=== PATIENT | female | born 1935 | race Caucasian/White ===

== ENCOUNTER 2019-11-26 11:16 | Outpatient (RCR) | payer MEDICAID, SELFPAY | END 2019-11-26 23:59 | disposition home or self-care (01) | LOC: ANHAUDIO 11:16 | PROVIDERS: PCP Family Medicine; Visit Provider Family Medicine | DX: Z46.1 Encounter for fitting and adjustment of hearing aid (principal) | CPT/HCPCS: 99199 ==

== ENCOUNTER 2020-04-16 11:20 | Outpatient (NON) | payer MEDICARE, OTHER, SELFPAY ==
[2020-04-16 12:05] LABS: Add Urine Microscopic? YES; Appearance Urine Clear (Clear); Bilirubin Urine Negative (Negative); Blood Urine Negative (Negative); Color Urine Yellow (Yellow); Glucose Urine UA Negative (Negative); Ketones Urine Negative (Negative); Leukocyte Esterase Ur 2+ LEU/UL (Negative); Nitrate Urine Negative (Negative); Protein Urine Negative (Negative); Specific Grav Ur 1.025 (1.010-1.020); Urobilinogen Urine 0.2 mg/dL (0.2-1.0); pH Urine 5.5 (5.0-8.0)
[2020-04-16 12:07] LABS: Basophils Absolute Auto 0.09 K/mm3 (0.00-0.10); Eosinophils Absolute Auto 0.16 K/mm3 (0.02-0.50); Eosinophils Percent Auto 1.8 % (1.0-6.0); Hematocrit 42.6 % (35.0-42.0); Hemoglobin 14.1 g/dL (11.7-13.8); Immature Granulocyte Absolute 0.09 K/mm3 (0.00-0.00); Lymphocytes Absolute Auto 2.79 K/mm3 (1.10-4.50); Lymphocytes Percent Auto 32.2 % (18.0-42.0); Mean Corpuscular HGB Conc 33.1 g/dL (32.0-36.0); Mean Corpuscular Hemoglobin 28.7 pg (27.0-31.0); Mean Corpuscular Volume 86.6 fL (78.0-102.0); Mean Platelet Volume 11.3 fl (9.2-11.8); Monocytes Absolute Auto 0.83 K/mm3 (0.10-0.90); Monocytes Percent Auto 9.6 % (2.0-11.0); Neutrophils Absolute Auto 4.7 K/mm3 (1.7-7.2); Neutrophils Percent Auto 54.4 % (50.0-70.0); Platelet Count Result 247 K/mm3 (150-420); Red Blood Count 4.92 M/mm3 (4.20-5.40); Red Cell Distribution Width 13.8 % (11.6-14.4); White Blood Count 8.7 K/mm3 (4.8-10.8)
[2020-04-16 12:16] LABS: Bacteria Urine 4+ /hpf; RBC Urine 0-2 /hpf (0-2); Squamous Epithelial Cell Urine Few /hpf (Few); WBC Urine >75 /hpf (0-3)
[2020-04-16 12:37] LABS: Alanine Aminotransferase 38 U/L (14-59); Albumin Level 3.6 g/dL (3.4-5.0); Alkaline Phosphatase 136 U/L (46-116); Anion Gap 16.6 mmol/L (7-16); Aspartate Amino Transferase 35 U/L (15-37); Bilirubin,Total 0.3 mg/dL (0.00-1.00); Blood Urea Nitrogen 36 mg/dL (7-18); Calcium 8.8 mg/dL (8.5-10.1); Carbon Dioxide 25 mmol/L (21-32); Chloride 98 mmol/L (98-108); Cholesterol 156 mg/dL (0-200); Estimated Glomerular Filt Rate 35; Glucose 353 mg/dL (70-99); HDL Direct 27 mg/dL (40-60); LDL Cholesterol Calculated 65 mg/dL (<130); Osmolality Calculated 302 mOsm/kg (285-295); Potassium 4.6 mmol/L (3.5-5.1); Sodium 135 mmol/L (136-145); Thyroid Stimulating Hormone 1.28 uIU/mL (0.36-3.74); Triglycerides 320 mg/dL (0-150)
[2020-04-16 12:39] LABS: Creatinine Urine 153.66 mg/dL (40-278)
[2020-04-16 12:44] LABS: MALB Creatinine Ratio 12.6 mg/g (0-30); Microalbumin Urine Random 19.4 mg/L
[2020-04-16 12:46] LABS: Hemoglobin A1C 10.3 % (<5.7)
== END 2020-04-17 00:01 | disposition home or self-care (01) ==
PROVIDERS: Visit Provider Internal Medicine
DX: E11.9 Type 2 diabetes mellitus without complications (principal); R82.90 Unspecified abnormal findings in urine
CPT/HCPCS: 36415; 80053; 80061; 81001; 82043; 83036; 84443; 85025; 87077; 87086; 87088; 87186

== ENCOUNTER 2020-08-20 13:34 | Outpatient (NON) | payer MEDICARE, SELFPAY ==
[2020-08-20 14:06] LABS: Hemoglobin A1C 7.6 % (<5.7)
[2020-08-20 14:09] LABS: Alanine Aminotransferase 35 U/L (14-59); Albumin Level 3.6 g/dL (3.4-5.0); Alkaline Phosphatase 111 U/L (46-116); Anion Gap 12 mmol/L (8-16); Aspartate Amino Transferase 27 U/L (15-37); Bilirubin,Total 0.5 mg/dL (0.00-1.00); Blood Urea Nitrogen 27 mg/dL (7-18); Calcium 9.1 mg/dL (8.5-10.1); Carbon Dioxide 24 mmol/L (21-32); Chloride 103 mmol/L (98-108); Estimated Glomerular Filt Rate 50; Glucose 136 mg/dL (70-99); Osmolality Calculated 295 mOsm/kg (285-295); Potassium 5.6 mmol/L (3.5-5.1); Sodium 139 mmol/L (136-145); Total Protein 6.8 g/dL (6.4-8.2)
== END 2020-08-20 13:35 ==
LOC: CHSLAB 13:36
PROVIDERS: Visit Provider Internal Medicine
DX: E11.9 Type 2 diabetes mellitus without complications (principal)
CPT/HCPCS: 36415; 80053; 83036

== ENCOUNTER 2021-01-04 10:40 | Outpatient (NON) | payer MEDICARE, SELFPAY ==
[2021-01-04 11:51] LABS: Basophils Percent Auto 1.1 % (0.0-1.0); Eosinophils Absolute Auto 0.24 K/mm3 (0.02-0.50); Eosinophils Percent Auto 2.6 % (1.0-6.0); Hematocrit 38.9 % (35.0-42.0); Hemoglobin 12.2 g/dL (11.7-13.8); Immature Granulocyte Absolute 0.09 K/mm3 (0.00-0.00); Lymphocytes Absolute Auto 3.53 K/mm3 (1.10-4.50); Lymphocytes Percent Auto 38.5 % (18.0-42.0); Mean Corpuscular HGB Conc 31.4 g/dL (32.0-36.0); Mean Corpuscular Volume 89.2 fL (78.0-102.0); Mean Platelet Volume 10.7 fl (9.2-11.8); Monocytes Absolute Auto 0.84 K/mm3 (0.10-0.90); Monocytes Percent Auto 9.2 % (2.0-11.0); Neutrophils Absolute Auto 4.4 K/mm3 (1.7-7.2); Neutrophils Percent Auto 47.6 % (50.0-70.0); Platelet Count Result 253 K/mm3 (150-420); Red Blood Count 4.36 M/mm3 (4.20-5.40); Red Cell Distribution Width 14.5 % (11.6-14.4); White Blood Count 9.2 K/mm3 (4.8-10.8)
[2021-01-04 11:58] LABS: Alanine Aminotransferase 41 U/L (14-59); Albumin Level 3.5 g/dL (3.4-5.0); Alkaline Phosphatase 126 U/L (46-116); Anion Gap 12 mmol/L (8-16); Aspartate Amino Transferase 32 U/L (15-37); Bilirubin,Total 0.5 mg/dL (0.00-1.00); Blood Urea Nitrogen 34 mg/dL (7-18); Calcium 8.6 mg/dL (8.5-10.1); Carbon Dioxide 25 mmol/L (21-32); Chloride 101 mmol/L (98-108); Cholesterol 151 mg/dL (0-200); Estimated Glomerular Filt Rate 37; Glucose 193 mg/dL (70-99); HDL Direct 33 mg/dL (40-60); LDL Cholesterol Calculated 88 mg/dL (<130); Osmolality Calculated 298 mOsm/kg (285-295); Potassium 4.8 mmol/L (3.5-5.1); Sodium 138 mmol/L (136-145); Total Protein 6.7 g/dL (6.4-8.2); Triglycerides 149 mg/dL (0-150)
[2021-01-04 12:12] LABS: Hemoglobin A1C 8.2 % (<5.7)
== END 2021-01-04 10:41 ==
PROVIDERS: Visit Provider Internal Medicine
DX: E11.9 Type 2 diabetes mellitus without complications (principal); I10 Essential (primary) hypertension
CPT/HCPCS: 36415; 80053; 80061; 83036; 85025

== ENCOUNTER 2021-01-09 10:20 | Outpatient (CLI) | payer MEDICARE, MEDICAID, SELFPAY ==
--- NOTE | ~2021-01-09 | XR_ITS ---
XR_CERV2-3V_CR DATE: 01/09/2021 10:59 INDICATION: Right shoulder and arm pain and numbness for one month. No known injury. TECHNIQUE: AP, open-mouth, lateral views COMPARISON: 10/28/2017 cervical spine FINDINGS: There is straightening of the cervical spine. No fracture or dislocation or locked facet or prevertebral soft tissue swelling is evident. C1 and C2 are normally aligned and the odontoid process is intact. There is approximately 1.5 mm anterolisthesis at C2-3. There is anterior spurring at C3-4, C4-5 and particularly prominently at C5-6 and C6-7. There is severe loss of interspace height at C6-7, with relative preservation of the remaining cervic al interspaces. There is degenerative change at the apophyseal joints throughout the cervical spine. There is uncover tebral joint spurring particularly in the lower cervical region.. IMPRESSION: Straightening of cervical spine Extensive cervical spondylosis, most severe at C6-7 Reviewed, dictated and finalized at [facility]. Reviewed, dictated and finalized at location A.
--- NOTE | ~2021-01-09 | XR_ITS ---
EXAMINATION: XR shoulder RT min 2V DATE: 01/09/2021 10:59 INDICATION: Right shoulder and arm pain TECHNIQUE: AP internally and externally rotated, AP oblique externally rotated and transscapular Y vi ews of the right shoulder were obtained. COMPARISON: 10/31/2011 FINDINGS: Normal alignment. No fracture.Interval progression of moderate glenohumeral osteoarthritis with ceph alad predominant nonuniform joint space narrowing and small marginal osteophytes along the glenoid an d humeral head. Again seen are changes of prior distal clavicle excision with widening of the acromio clavicular joint space. Cystic change at the greater tuberosity which could be seen with chronic rota tor cuff disease. Visualized portions of the lungs are clear. Soft tissues are unremarkable. IMPRESSION: Progression of moderate glenohumeral osteoarthritis. Reviewed, dictated and finalized at location A.
== END 2021-01-09 10:21 | disposition home or self-care (01) ==
LOC: CHSIMG 10:24
PROVIDERS: PCP Internal Medicine; Visit Provider Internal Medicine
DX: M25.511 Pain in right shoulder (principal); M79.601 Pain in right arm
CPT/HCPCS: 72040; 73030

== ENCOUNTER 2021-06-01 10:16 | Outpatient (CLI) | payer MEDICARE, MEDICAID, SELFPAY ==
--- NOTE | ~2021-06-01 | US_ITS ---
EXAMINATION: US arterial ankle brachial ind DATE: 06/01/2021 11:02 INDICATION: Symptoms and signs involving the circulatory and respiratory system. Diabetes, hypertensi on and peripheral vascular disease with prior vascular surgery. TECHNIQUE: Segmental pressures and plethysmographic and Doppler waveforms of the brachial and lower e xtremity arteries were obtained. COMPARISON: None. FINDINGS: Right and left brachial artery pressures of 132 mm Hg and 124 mm Hg, respectively, are concordant (no rmal difference <= 30 mmHg). The right ankle-brachial index (HOWIE) is 1.52 (normal >= 0.9-1.0). The right great toe-brachial index (TBI) is 0.48 (normal >= 0.65). Arterial Doppler waveforms demonstrate brisk systolic upstrokes at khris th the right posterior tibial and dorsalis pedis arteries. The left HOWIE is 0.94. The left TBI is 0.44. Arterial Doppler waveforms demonstrate brisk systolic ups trokes at both the left posterior tibial and dorsalis pedis arteries. IMPRESSION: 1. Mild bilateral arterial occlusive disease with normal bilateral ABIs but mildly decreased bilatera l TBI's. Reviewed, dictated and finalized at location A. IMPRESSION: 1. Mild bilateral arterial occlusive disease with normal bilateral ABIs but mil dly decreased bilateral TBI's.
== END 2021-06-01 10:17 | disposition home or self-care (01) ==
LOC: CHSIMG 10:18
PROVIDERS: PCP Internal Medicine; Visit Provider Internal Medicine
DX: R09.89 Other specified symptoms and signs involving the circulatory and respiratory systems (principal)
CPT/HCPCS: 93922

== ENCOUNTER 2021-08-09 09:23 | Emergency (ER) | payer MEDICARE, MEDICAID, SELFPAY ==
--- NOTE | ~2021-08-09 | XR_ITS ---
EXAMINATION: XR shoulder LT min 2V, XR humerus LT DATE: 08/09/2021 10:22 INDICATION: Left shoulder and humeral pain post fall out of shower. TECHNIQUE: 1. AP internally and externally rotated, AP oblique externally rotated and transscapular Y views of t he left shoulder were obtained. 2. Internal and axillary rotated views of the left humerus were obtained. COMPARISON: Left shoulder radiographs dated 11/30/2013 FINDINGS: Normal alignment at the right shoulder and elbow. Small ossific density overlying the superolateral a spect of the humeral head near the greater tuberosity which could represent either an age-indetermina te avulsion fracture fragment or heterotopic ossification related to either old rotator cuff injury o r calcific tendinitis. No other lesions suspicious for fracture identified. Polyarticular osteoarthri tis, moderate severity at the right glenohumeral and acromioclavicular joints and mild at the right e lbow. Calcified lymph nodes at the AP window consistent with old granulomatous disease. Severe mid to lower cervical facet osteoarthritis. Atherosclerotic calcific lesions at the left carotid bulb. Darryl tional small dystrophic calcifications in the soft tissues posterior to the right elbow. IMPRESSION: 1. Small ossific density along the left greater tuberosity which could represent either an age-indete rminate rotator cuff avulsion fracture] arising from the greater tuberosity or heterotopic ossicles r elated to old trauma or calcific tendinitis of the rotator cuff. 2. Polyarticular osteoarthritis, moderate at the left shoulder and mild at the left elbow. Reviewed, dictated and finalized at location A. IMPRESSION: 1. Small ossific density along the left greater tuberosity which could represen t either an age-indeterminate rotator cuff avulsion fracture] arising from the greater tuberosity or heterotopic ossicles related to old trauma or calcific te ndinitis of the rotator cuff. 2. Polyarticular osteoarthritis, moderate at the left shoulder and mild at the left elbow.
[2021-08-09 10:00] VITALS: BP 156/76; PULSE 88; RESP 16; TEMP 36.3; O2SAT 99
[2021-08-09] MEDS: KETOROLAC 30 MG/ML VIAL (*BKC) IM (10:22)
[2021-08-09 10:29] LABS: Glucose Point of Care 342 mg/dl (65-105)
--- NOTE | 2021-08-09 10:45 | ED.UPPEXIN ---
HPI - Extremity Injury (Upper) General Chief Complaint: Extremity Injury, Upper Stated Complaint: FELL IN SHOWER SHOULDER PAIN Source: patient and family Mode of arrival: wheelchair Limitations: no limitations History of Present Illness HPI narrative: this is a an 86-year-old female with a history of diabetes and hypertension while in the shower this morning had a fall causing an injury to her left shoulder, has decreased range of motion secondary to pain, there is no numbness or tingling radiating down her left arm there was strong brisk radial pulse rates her pain about a 6/10. complaint: injury to: left and shoulder Onset (ago): hour(s) Other injuries: none Handedness: right Place: home Severity: moderate Severity scale (1-10): 6 Relieving factors: immobilization Exacerbating factors: movement of extremity Related Data Home Medications Medication Instructions Recorded Confirmed amlodipine 5 mg PO DAILY 08/09/21 08/09/21 aspirin [Adult Aspirin] 81 mg PO DAILY 08/09/21 08/09/21 atenolol 25 mg PO DAILY 08/09/21 08/09/21 lisinopril-hydrochlorothiazide 1 tablet PO DAILY 08/09/21 08/09/21 tramadol 50 mg PO DAILY 08/09/21 08/09/21 Allergies Allergy/AdvReac Type Severity Reaction Status Date / Time No Known Allergies Allergy Verified 01/06/21 11:31 Review of Systems Review of Systems: All systems reviewed & are unremarkable except as noted in HPI and below PMFSH Past Medical History Medical History Diabetes mellitus Family History Family History Mother Family history of arthritis Family history of malignant neoplasm of breast in first degree relative Social History Social History Smoking status: Never smoker Alcohol intake: never Exam Const: General: no acute distress Orientation/consciousness: patient oriented x3 HENMT: Head: normal to inspection Eyes: Conjunctivae: conjunctivae normal Pupils: Equal, round and reactive pupils present Neck: Neck: normal visual inspection and no lymphadenopathy Chest: Chest palpation & inspection: normal inspection of the chest Resp: Effort & Inspection: normal respiratory effort Auscultation: clear to auscultation bilaterally Cardio: Rate: regular rate Rhythm: regular rhythm GI: GI Palp: Yes Soft to palpation Back/Spine/Pelvis: Back: no CVA tenderness Skin: General skin exam: normal color Rashes: no rashes Neuro: General: patient oriented x3 and no meningeal signs Extrem: Other: left shoulder pain with some reduced range of motion secondary to pain and inflammation. Psych: Mental Status: mental status grossly normal Affect: normal affect Course Course Emergency Course: Patient had an x-ray that was reviewed with family which showed old an old avulsion fracture of the greater tuberosity at the rotator cuff, the patient received 30mg IM Toradol, patient's blood sugar was a little over 300 but has not taken her medication, insulin. Vital Signs Vital signs: Vital Signs Temperature 36.3 C L 08/09/21 10:00 Pulse Rate 88 08/09/21 10:00 Respiratory Rate 16 08/09/21 10:00 Blood Pressure 156/76 H 08/09/21 10:00 Pulse Oximetry 99 08/09/21 10:00 Temperature 36.3 C L 08/09/21 10:00 Pulse Rate 88 08/09/21 10:00 Respiratory Rate 16 08/09/21 10:00 Blood Pressure 156/76 H 08/09/21 10:00 Pulse Oximetry 99 08/09/21 10:00 MDM - Extremity Injury (Upper) Lab Data Labs: Lab Results 08/09/21 Range/Units 10:27 POC Capillary Glucose 342 H (65-105) mg/dl Critical Care Time Critical Care Time Critical Care Time: No Discharge Plan Discharge Clinical Impression: Injury of left rotator cuff Qualifiers: Encounter type: initial encounter Qualified Code(s): S46.002A - Unspecified injury of muscle(s) and tendon(s) of the rotator cuff of left
== END 2021-08-09 11:12 | disposition home or self-care (01) ==
PROVIDERS: Emergency Provider Emergency Medicine; PCP Internal Medicine
DX: S46.002A Unspecified injury of muscle(s) and tendon(s) of the rotator cuff of left shoulder, initial encounter (principal); W18.30XA Fall on same level, unspecified, initial encounter; E11.9 Type 2 diabetes mellitus without complications
CPT/HCPCS: 73030; 73060; 82948; 96372; 99283; A4565; J1885

== ENCOUNTER 2021-08-30 09:40 | Outpatient (RCR) | payer MEDICARE, OTHER, SELFPAY ==
--- NOTE | 2021-08-30 11:05 | PTOPEVAL ---
Thank you for referring Juana Adams to [facility] [place]Note 2[place]? The patient is scheduled to be seen for therapy? ____x/week for ___ weeks. Please review, sign, date and return this plan of care REGINA. I agree with and certify that the following plan of care is medically necessary. Referring Physician Date Admitting Provider: Attending Provider: Joe Coy MD Referring Provider: *PT Outpatient Evaluation Start: 08/30/21 09:45 Freq: Status: Active Protocol: Document 08/30/21 09:46 ACR (Rec: 08/30/21 11:02 ACR [id number]) Therapy Assessment Status Assessment Status Assessment Status Evaluation Outpatient Past Medical History Cardiovascular History Hx Hypertension Yes Gastrointestinal History Hx Cholecystectomy Yes Hx Gastric Bypass Surgery Yes Musculoskeletal History Hx Joint Replacement Yes Reproductive History Hx Post Menopausal Yes Evaluation Information Problem Diagnosis gait abnormality, L shoulder pain, back pain Onset 08/09/21 Subjective Information Patient states that she fell Query Text:As Reported By Patient/ out of the shower about 3 Family weeks ago. She states that she feel onto the L side. She was able to get up with the use of grab bars. She denies other falls. The patient states that she is unable to lift her L arm above shoulder level. She ambulates with an upright walker and a cane. She states that she did not bring her walker today because she did not want to be a burden. She states that she lives at the [place] and is able to do everything she needs to do. Patient states that her goal for therapy is to get her shoulder working like it is supposed to. Prior Level of Function Activity Level (Last 3 Months) Occupation retired Hand Dominance Right Activity of Daily Living Ability Independent Indoor/Home Mobility Independent Community Mobility Independent Stairs Ability Needs Some Help Functional Cognition (Planning, Shopping Independent , Taking Medications) Cooking No Cleaning No Laundry No Milagros
--- NOTE | 2021-10-01 09:44 | PTOPEVAL ---
Thank you for referring Juana Adams to [facility].? The patient is scheduled to be seen for therapy? ____x/week for ___ weeks. Please review, sign, date and return this plan of care REGINA. I agree with and certify that the following plan of care is medically necessary. Referring Physician Date Admitting Provider: Attending Provider: Joe Coy MD Referring Provider: *PT Outpatient Evaluation Start: 08/30/21 09:45 Freq: Status: Active Protocol: Document 10/01/21 08:45 ACR (Rec: 10/01/21 09:44 ACR [id number]) Therapy Assessment Status Assessment Status Assessment Status Progress Outpatient Past Medical History Cardiovascular History Hx Hypertension Yes Gastrointestinal History Hx Cholecystectomy Yes Hx Gastric Bypass Surgery Yes Musculoskeletal History Hx Joint Replacement Yes Reproductive History Hx Post Menopausal Yes Evaluation Information Problem Diagnosis unsteady balance, L shoulder pain Onset 08/09/21 Subjective Information Patient reports that she is Query Text:As Reported By Patient/ able to reach overhead now, Family but still cannot reach into the cabinet to grab an object because of the strength deficits. She states that she does all of her exercises at home and is practicing putting items in and out of the cabinets to build her strength . Pain Assessment Timing of Pain Assessment Timing of Pain Assessment Assessment Pain Scale Pain Scale Used Numeric (1 - 10) Self Report Pain Assessment Lower Back Reported Pain Level 5 Left Shoulder(s) Reported Pain Level 2 Greatest Pain Intensity 4 Pain Score Pain Score 5,2: Self Report Interventions Used Interventions Used By Clinicians Activity or ADL's,Electrical Stimulation,Exercise,Heat Upper Extremity Range of Motion Scapular/ Shoulder Range of Motion Left Shoulder Flexion - Active 146 Shoulder Abduction - Active 113 Upper Extremity Muscle Strength Testing Scapular/Shoulder Left Shoulder Flexion Strength 3+ Fair + Shoulder Abduction Strength 3+ Fair + Balance Assessment Time Up Go (TUG) Timed Up and Go Test (TUG) (Seconds) 16 5 Time Sit to Stand Time in Seconds 27 General Exercise General Exercises Exercise Description -supine shoulder flexion 2# x Query Text:Record Sets, Reps, 10 reps Resistance, and Position -supine shoulder flexion 1# x
== END 2021-10-01 11:44 | disposition home or self-care (01) ==
LOC: CHSPT 09:40
PROVIDERS: PCP Internal Medicine; Visit Provider Internal Medicine
DX: M25.512 Pain in left shoulder (principal); M54.9 Dorsalgia, unspecified; M54.10 Radiculopathy, site unspecified; R26.9 Unspecified abnormalities of gait and mobility
CPT/HCPCS: 97014; 97110; 97112; 97161; G0283

== ENCOUNTER 2021-12-26 16:58 | Emergency (ER) | payer OTHER, SELFPAY ==
--- NOTE | ~2021-12-26 | CT_ITS ---
EXAMINATION: CT abdomen pelvis wo con DATE: 12/26/2021 19:06 INDICATION: Nausea, vomiting and diarrhea for 4 days TECHNIQUE: Computed tomography (CT) of the abdomen and pelvis was performed without intravenous contr ast. The dose-length product was 506.45 mGy-cm. Automated exposure control and iterative reconstructi on technique were employed. COMPARISON: None. FINDINGS: There are interstitial changes of the lung periphery with interlobular septal thickening in the lower lobes. Heart size normal. There is portal venous gas in the left hepatic lobe. There are c holecystectomy clips. There are calcified granulomas in the spleen. The pancreas, adrenal glands and kidneys are unremarkable. There is atherosclerosis of the aorta and mesenteric vessels. There is sten osis at the origin of the celiac axis, SMA and renal arteries. There are extensive surgical changes i n the left upper abdomen. There is a duodenal diverticulum. There is punctate free air medial to the ascending colon. The colon at the hepatic flexure appears mildly thickened. There is also free air po sterior to the cecum. There is a ventral hernia adjacent to the umbilicus containing nonobstructed co chelo. There are additional fat-containing ventral hernias. No bowel obstruction. There is severe lumba r spondylosis with grade 1 spondylolisthesis at L4-5. There is levoscoliosis. Severe osteoarthritis o f the hips. IMPRESSION: 1. Small amount of free air adjacent to the ascending colon, suspicious for perforation. Portal venou s gas is noted in the left hepatic lobe. This constellation of findings is suspicious for ischemic khris wel. Recommend surgical consultation. 2: Multiple ventral wall hernias one of which adjacent to the umbilicus contains nonobstructed colon . Reviewed, dictated and finalized at location A. STERED NURSE RENAL IMPRESSION: 1. Small amount of free air adjacent to the ascending colon, suspicious for per foration. Portal venous gas is noted in the left hepatic lobe. This constellati on of findings is suspicious for ischemic bowel. Recommend surgical consultatio n. 2: Multiple ventral wall hernias one of which adjacent to the umbilicus contai ns nonobstructed colon.
--- NOTE | ~2021-12-26 | XR_ITS ---
EXAMINATION: XR chest 1V portable 12/26/2021 19:06 INDICATION: Shortness of breath PROCEDURE: AP portable chest COMPARISON: Comparison to multiple prior studies sequentially, with oldest reviewed study dated 06/2008. FINDINGS: The lungs are clear. The cardiomediastinal silhouette is within normal limits. There are no pleural effusions. There is no pneumothorax suspected. The lungs are hyperinflated which is cons istent with, but not diagnostic of chronic obstructive pulmonary disease. Postsurgical changes are pr esent in the left upper abdomen. IMPRESSION: 1: NO ACUTE CARDIOPULMONARY DISEASE. Reviewed, dictated and finalized at location A. CAL LIBRARY ASSISTANT
[2021-12-26 17:10] VITALS: BP 176/78; PULSE 90; RESP 20; TEMP 36.3; O2SAT 100
[2021-12-26] MEDS: SODIUM CHLORIDE 0.9% IV 1,000 ML 999 ML IV CONT ×2 (17:30→20:31)
--- NOTE | 2021-12-26 17:36 | ED.NAVMDI ---
HPI - Nausea/Vomiting/Diarrhea General Chief complaint: Nausea/Vomiting/Diarrhea Stated complaint: nausea, vomiting, diarrhea, temp Time Seen by Provider: 12/26/21 16:59 Source: patient, family and RN notes reviewed Mode of arrival: ambulatory Limitations: no limitations History of Present Illness MD elicited complaint: nausea, vomiting and abdominal pain Onset (ago): day(s) (3) Description of vomiting: food contents and watery Associated nausea: Yes Associated abdominal pain: Yes Location of pain: diffuse Pain consistency: constant Severity: mild Pain scale (0-10): 3 Quality: cramping, aching and dull Exacerbating factors: none Relieving factors: none Associated symptoms: malaise, nausea/vomiting and weakness Related Data Home Medications Medication Instructions Recorded Confirmed amlodipine 5 mg PO DAILY 08/09/21 12/26/21 aspirin [Adult Aspirin] 81 mg PO DAILY 08/09/21 12/26/21 atenolol 25 mg PO DAILY 08/09/21 12/26/21 lisinopril-hydrochlorothiazide 1 tablet PO DAILY 08/09/21 12/26/21 insulin asp prt-insulin aspart 60 unit SUBCUT QAM 12/26/21 12/26/21 [Novolog Mix 70-30FlexPen U-100] insulin asp prt-insulin aspart 90 unit SUBCUT HS 12/26/21 12/26/21 [Novolog Mix 70-30FlexPen U-100] lovastatin 10 mg PO DAILY 12/26/21 12/26/21 Allergies Allergy/AdvReac Type Severity Reaction Status Date / Time No Known Allergies Allergy Verified 12/26/21 18:16 Review of Systems Review of Systems: All systems reviewed & are unremarkable except as noted in HPI and below Gastrointestinal: Gastrointestinal: Reports abdominal pain, Reports nausea and Reports vomiting PMFSH Past Medical History Medical History Diabetes mellitus Gastroenteritis Family History Family History Mother Family history of arthritis Family history of malignant neoplasm of breast in first degree relative Social History Social History Smoking status: Never smoker Alcohol intake: never Exam Const: General: no acute distress, alert and ill appearing Nutritional Appearance: well nourished Orientation/consciousness: patient oriented x3 Limitations: no limitations HENMT: Head: normal to inspection Ears: external ears normal, TM's normal bilaterally and EAC's normal General nose exam: Normal external nose present and Normal nares present Face and sinus: normal facial exam and sinuses nontender Mouth: Yes Abnormal oral and palatal mucosa present (dry mucous membranes) Eyes: Cornea: corneas normal Pupils: Equal, round and reactive pupils present EOM: EOMs intact bilaterally Neck: Neck: normal visual inspection and no lymphadenopathy Chest: Chest palpation & inspection: normal inspection of the chest Resp: Effort & Inspection: normal respiratory effort Auscultation: clear to auscultation bilaterally Cardio: Rate: regular rate Rhythm: regular rhythm GI: GI Palp: Yes Soft to palpation and Yes Tenderness to palpation present (GI) (generalized) Auscultation: normal bowel sounds : General: Yes bladder normal to palpation and Yes no CVA tenderness Back/Spine/Pelvis: Back: no CVA tenderness Skin: General skin exam: normal color Rashes: no rashes Neuro: General: patient oriented x3, moves all extremities, no meningeal signs, no focal motor deficits and CN's II-XI intact bilaterally Extrem: General: normal to inspection and no pedal edema Psych: Appearance: grossly normal and well kempt Mental Status: mental status grossly normal Affect: normal affect Attitude: cooperative Thought content: Yes Normal thought content present Course Course Emergency Course: Pt was stable in the ED. no acute GI loss. Reevaluation(s) Reevaluation #1: VSS Date: 12/26/21 Time: 17:55 Vital Signs Vital signs: Vital Signs Temperature 36.3 C L 12/26/21 17:10 Pulse Rate 90 03
[2021-12-26] MEDS: PANTOPRAZOLE SODIUM IV 40 MG VIAL IV PUSH (17:40)
[2021-12-26] MEDS: ONDANSETRON INJ 4 MG/2 ML VIAL IV PUSH (17:40)
[2021-12-26 17:49] LABS: Basophils Absolute Auto 0.03 K/mm3 (0.00-0.10); Basophils Percent Auto 0.5 % (0.0-1.0); Eosinophils Absolute Auto 0.01 K/mm3 (0.02-0.50); Eosinophils Percent Auto 0.2 % (1.0-6.0); Hematocrit 43.2 % (35.0-42.0); Hemoglobin 14.3 g/dL (11.7-13.8); Immature Granulocyte Absolute 0.06 K/mm3 (0.00-0.00); Lymphocytes Absolute Auto 0.95 K/mm3 (1.10-4.50); Mean Corpuscular HGB Conc 33.1 g/dL (32.0-36.0); Mean Corpuscular Hemoglobin 29.7 pg (27.0-31.0); Mean Corpuscular Volume 89.6 fL (78.0-102.0); Mean Platelet Volume 9.7 fl (9.2-11.8); Monocytes Percent Auto 8.4 % (2.0-11.0); Neutrophils Absolute Auto 4.4 K/mm3 (1.7-7.2); Neutrophils Percent Auto 73.9 % (50.0-70.0); Platelet Count Result 249 K/mm3 (150-420); Red Blood Count 4.82 M/mm3 (4.20-5.40); Red Cell Distribution Width 14.3 % (11.6-14.4)
--- NOTE | 2021-12-26 17:55 | ECG_ITS ---
Measurements Intervals [place] Rate: 103 P: 43 VT: 150 QRS: -14 QRSD: 80 T: 76 QT: 321 QTc: 422 Interpretive Statements SINUS TACHYCARDIA LOW QRS VOLTAGE IN PRECORDIAL LEADS NONSPECIFIC ST & T-WAVE ABNORMALITY ABNORMAL RHYTHM ECG NO PREVIOUS ECG AVAILABLE FOR COMPARISON Electronically Signed On 12-28-2021 12:13:44 SILO ERECTOR by Elias Plaza M.D.
[2021-12-26 18:04] LABS: Alanine Aminotransferase 41 U/L (14-59); Albumin Level 3.8 g/dL (3.4-5.0); Alkaline Phosphatase 126 U/L (46-116); Anion Gap 18 mmol/L (8-16); Aspartate Amino Transferase 32 U/L (15-37); Bilirubin,Total 0.3 mg/dL (0.00-1.00); Blood Urea Nitrogen 46 mg/dL (7-18); Calcium 8.8 mg/dL (8.5-10.1); Carbon Dioxide 17 mmol/L (21-32); Chloride 103 mmol/L (98-108); Estimated Glomerular Filt Rate 26; Glucose 260 mg/dL (70-99); Lipase 51 U/L (73-393); Osmolality Calculated 306 mOsm/kg (285-295); Potassium 4.4 mmol/L (3.5-5.1); Sodium 138 mmol/L (136-145); Total Protein 7.7 g/dL (6.4-8.2)
[2021-12-26 18:38] VITALS: BP 150/59; PULSE 103; RESP 20; O2SAT 99
--- NOTE | 2021-12-26 20:25 | PC.NURSE ---
contacted [facility] warehouse administrative assistant Sayra for pt transfer. she informed me that she will contact the surgeon and call us back.
[2021-12-26] MEDS: MORPHINE SULFATE (*CRX) 2 MG/ML INJ IV PUSH (20:33)
[2021-12-26 20:48] LABS: Add Urine Microscopic? YES; Appearance Urine Clear (Clear); Bilirubin Urine Negative (Negative); Blood Urine 1+ (Negative); Color Urine Light Yellow (Yellow); Glucose Urine UA Trace (Negative); Ketones Urine Trace (Negative); Leukocyte Esterase Ur Negative (Negative); Nitrate Urine Negative (Negative); Protein Urine Trace (Negative); Urobilinogen Urine 0.2 mg/dL (0.2-1.0); pH Urine 5.5 (5.0-8.0)
[2021-12-26 21:04] LABS: SARS-CoV-2 Ag Negative (Negative)
[2021-12-26 21:04] LABS: RBC Urine 0-2 /hpf (0-2); Squamous Epithelial Cell Urine Few /hpf (Few)
[2021-12-26 21:07] LABS: Lactic Acid Reflex 1.7 mmol/L (0.4-2.0)
--- NOTE | 2021-12-26 21:11 | PC.NURSE ---
pt to be transferred to [facility] for GI surgery
--- NOTE | 2021-12-26 21:47 | PCDIET ---
Sayra from [place] notified this staff member that the patient will be admitted to room 257 and that report can be called to [phone].
--- NOTE | 2021-12-26 21:51 | PC.NURSE ---
report called to [facility] NINOSKA Nroiega.
--- NOTE | 2021-12-26 22:02 | PC.NURSE ---
contacted [facility] for an ACLS pt transfer from [facility] to [facility] room 257
[2021-12-26 22:36] VITALS: BP 158/67; PULSE 110; RESP 18; TEMP 36.9; O2SAT 100
== END 2021-12-26 22:36 | disposition short-term general hospital (02) ==
PROVIDERS: Emergency Provider Emergency Medicine; PCP Internal Medicine
DX: K63.1 Perforation of intestine (nontraumatic) (principal); E86.0 Dehydration; K52.9 Noninfective gastroenteritis and colitis, unspecified; Z20.822 Contact with and (suspected) exposure to COVID-19; E11.9 Type 2 diabetes mellitus without complications
CPT/HCPCS: 36415; 71045; 74176; 80053; 81001; 83605; 83690; 85025; 87040; 87426; 93005; 96361; 96365; 96375; 99285; C9113; C9803; J0696; J2270; J2405; J7030

== ENCOUNTER 2021-12-27 08:17 | Inpatient (IN) | payer OTHER, MEDICARE, SELFPAY ==
--- NOTE | 2021-12-26 23:37 | ADMGEN ---
This patient, Juana Adams, was admitted to Medical Room 257-01. Patient/family oriented to hospital policies and general routines including ID bracelet, bed and alarms, visiting hours, pain management, procedures, bathroom and other care routines, personal items, smoking policy, room service/diet, and visiting hours. Information on how to activate the Rapid Response Team has been discussed. Patient/Family are encouraged to report perceived risks to care and to ask questions if they do not understand what they are told or what they should do.
--- NOTE | ~2021-12-27 | XR_ITS ---
EXAMINATION: XR abdomen/kub 1V INDICATION: Possible microperforation of the colon TECHNIQUE: Supine views of the abdomen were obtained on 2 radiographs. COMPARISON: CT from yesterday FINDINGS: There appears to be mild wall thickening of the ascending colon. No free intraperitoneal ga s is identified. Cholecystectomy and left upper quadrant surgical clips are noted. Punctate calcifica tions of the left upper quadrant are consistent with old granulomatous disease of the spleen. There i s severe lumbar spondylosis. There is severe osteoarthritis of the hips. Phleboliths are noted in the pelvis. IMPRESSION: 1. Apparent wall thickening of the ascending colon, possibly reflecting ischemic bowel given right lo wer quadrant and portal venous gas on yesterday's CT examination. Reviewed, dictated and finalized at location [facility] [employer] IMPRESSION: 1. Apparent wall thickening of the ascending colon, possibly reflecting ischemi c bowel given right lower quadrant and portal venous gas on yesterday's CT exam ination.
--- NOTE | ~2021-12-27 | XR_ITS ---
EXAMINATION: XR abdomen/kub 1V DATE: 12/28/2021 08:42 INDICATION: Abdominal pain. TECHNIQUE: A supine view of the abdomen was obtained. COMPARISON: CT abdomen and pelvis 12/28/21 FINDINGS: There are no dilated loops of bowel. There is a paucity of stool in the colon. There are mckeon rgical clips in the abdomen. IMPRESSION: 1. Normal bowel gas pattern. Reviewed, dictated and finalized at location [facility]. [employer]
--- NOTE | 2021-12-27 00:05 | PM.IMHP ---
H&P: HPI History of Present Illness Date/Time: 12/27/21 00:05 Chief Complaint: Abdominal pain. Narrative: This is an 86-year-old female with past medical history significant for diverticulosis, diverticulitis, chronic kidney disease, hypertension, insulin-dependent diabetes mellitus. Patient presents as a direct admit from outside hospital after patient was seen and evaluated at an emergency room and [facility] due to abdominal pain nausea and vomiting of 1+ day duration patient unable to eat anything in the last 24 hours or so due to nausea and vomiting, abdominal pain is localized to the right lower quadrant no radiating, patient also had diarrhea no blood in the stools or phlegm. Patient has been having chills however no fevers. Patient has been in her usual state of health prior to this. Patient with prior surgery to the abdomen in number of years ago apparently in the 90s for diverticulitis. Preliminary workup was significant for CT of abdomen and pelvis with probable perforated bowel. Patient has been admitted for further evaluation management and treatment. Review of Systems Review of Systems: Abdominal pain, nausea ,vomiting, diarrhea. Constitutional: Constitutional: Reports chills, Denies fatigue, Denies fever(s), Denies malaise, Denies night sweats and Denies weakness Eyes: Eyes: Denies change in vision ENT: Denies dysphagia, Denies vertigo, Denies dizziness, Denies nasal congestion, Denies nasal discharge, Denies nasal obstruction and Denies odynophagia Cardiovascular: Cardiovascular: Denies pedal edema, Denies irregular heart rhythm, Denies claudication, Denies leg edema, Denies lightheadedness, Denies radiating jaw, neck or arm pain, Denies palpitations and Denies dyspnea on exertion Respiratory: Respiratory: Denies cough and Denies dyspnea Gastrointestinal: Gastrointestinal: Reports abdominal pain, Denies melena, Denies hematochezia, Denies coffee ground emesis, Denies dyspepsia, Denies heartburn, Reports diarrhea, Reports nausea and Reports vomiting Genitourinary: Genitourinary: Denies dysuria and Denies flank pain Musculoskeletal: Musculoskeletal: Denies arthralgias and Denies joint swelling Integumentary/Breasts: Skin/Breast: Denies rash Neurologic: Denies focal weakness and Denies Sensory deficit (Neuro) Psychiatric: Psychiatric: Reports no additional psychiatric complaints and Reports as per HPI Endocrine: Endocrine: Denies cold intolerance, Denies heat intolerance, Denies polyphagia, Denies polydipsia, Denies polyuria and Denies palpitations Hematologic/Lymphatic: Hematologic/Lymphatic: Reports no additional hematologic/lymphatic complaints and Reports as per HPI Allergic/Immunologic: Allergic/Immunologic: Reports no additional allergic/immunologic complaints and Reports as per HPI PMFSH Past Medical History Medical History Diabetes mellitus Gastroenteritis Family History Family History Mother Family history of arthritis Family history of malignant neoplasm of breast in first degree relative Social History Social History Smoking status: Never smoker Alcohol intake: never Substance use: never Spiritual care concerns: No Meds Home Medications and Allergies Home Medications Medication Instructions Recorded Confirmed Type amlodipine 5 mg PO DAILY 08/09/21 12/26/21 History aspirin [Adult Aspirin] 81 mg PO DAILY 08/09/21 12/26/21 History atenolol 25 mg PO DAILY 08/09/21 12/26/21 History lisinopril-hydrochlorothiazide 1 tablet PO DAILY 08/09/21 12/26/21 History acetaminophen [Tylenol Extra 1,000 mg PO QAM 12/26/21 12/26/21 History Strength] diphenhydramine-acetaminophen 2 tablet PO HS PRN 12/26/21 12/26/21 History [Tylenol PM Extra Strength] insulin asp prt-insulin aspart 60 unit SUBCUT QAM 12/26/21 12/26/21 Histor
[2021-12-27 00:31] VITALS: BMI 26.2
[2021-12-27] MEDS: DEXTROSE 5%/0.45% SOD CHL 1,000 ML 75 ML IV CONT ×2 (03:02→16:25)
[2021-12-27] MEDS: ONDANSETRON INJ 4 MG/2 ML VIAL IV PUSH (04:20)
[2021-12-27 05:13] LABS: Basophils Percent Auto 0.3 % (0.2-1.2); Hematocrit 40.1 % (37.0-47.0); Hemoglobin 13.4 g/dL (12.0-15.0); Immature Granulocyte Absolute 0.08 K/mm3 (0.00-0.031); Immature Granulocyte Percent A 0.7 % (0-0.5); Lymphocytes Absolute Auto 2.13 K/mm3 (0.9-3.2); Mean Corpuscular HGB Conc 33.4 g/dl (32-36); Mean Corpuscular Hemoglobin 29.5 pg (26-34); Mean Corpuscular Volume 88.3 fl (80-100); Mean Platelet Volume 9.9 fl (7.4-10.4); Neutrophils Absolute Auto 8.6 K/mm3 (1.3-6.7); Platelet Count Result 227 k/mm3 (150-375); Red Blood Count 4.54 M/mm3 (4.2-5.4); Red Cell Distribution Width 14.3 % (11.5-14.5); White Blood Count 11.8 K/mm3 (4.5-10.0)
[2021-12-27 05:24] LABS: Anion Gap 12 mmol/L (8-16); Blood Urea Nitrogen 35 mg/dL (7-17); Carbon Dioxide 16 mmol/L (22-30); Chloride 108 mmol/L (98-107); Estimated CRCL calculation 28 ml/min; Estimated Glomerular Filt Rate 43; Glucose 226 mg/dL (65-110); Potassium 4.2 mmol/L (3.4-5.0); Sodium 136 mmol/L (137-145)
[2021-12-27 07:36] LABS: Glucose Point of Care 244 mg/dl (65-105)
[2021-12-27] MEDS: MORPHINE SULFATE (*CRX) 2 MG/ML INJ 1 MG IV PUSH (07:39)
[2021-12-27 08:00] VITALS: BP 161/62; PULSE 116; RESP 18; TEMP 36.7; O2SAT 97
[2021-12-27 10:42] VITALS: PULSE 116
[2021-12-27] MEDS: METOPROLOL TARTRATE INJ 5 MG/5 ML VIAL IV PUSH (10:42)
[2021-12-27] MEDS: HEPARIN SODIUM 5,000 UNITS/ML VIAL 5000 UNITS SUB-Q ×2 (10:42→20:46)
[2021-12-27] MEDS: PANTOPRAZOLE SODIUM IV 40 MG VIAL IV PUSH (10:42)
[2021-12-27 11:25] LABS: Glucose Point of Care 320 mg/dl (65-105)
--- NOTE | 2021-12-27 11:33 | PM.CNGS ---
Assessment and Plan Assessment and plan (1) Abnormal CT of the abdomen: Code(s): R93.5 - Abnormal findings on diagnostic imaging of other abdominal regions, including retroperitoneum Status: Acute Assessment and Plan: CT scan of the abdomen and pelvis reviewed and discussed with the patient in detail. There is evidence of portal venous gas in the left hepatic lobe and a small amount of air just adjacent to the ascending colon. This is concerning for bowel ischemia. The patient presented with a normal WBC count, normal lactic acid, was hemodynamically stable, and exam has been benign. This morning, she is not complaining of abdominal pain on my exam and is only tender in the RLQ without peritoneal sings. Her WBC count is up slightly to 11.8 today and she is slightly tachycardic with a heart rate of 110's. I have discussed the patient's case and plan of care with Dr. Barron. We would recommend continuing to try and treat her conservatively with broad-spectrum IV antibiotics, bowel rest, and close monitoring. If she develops more signs of bowel ischemia or peritoneal signs on exam, then she will need surgical exploration. She would be a high risk surgical candidate given her age, co-morbidities, and history of extensive abdominal surgery in the past. Thank you for allowing us to see the patient in consultation and we will continue to closely follow along with you. (2) Perforated bowel: Code(s): K63.1 - Perforation of intestine (nontraumatic) Status: Acute Assessment and Plan: CT suggests punctate free air adjacent to the ascending colon. See plan above. (3) Insulin dependent diabetes mellitus: Status: Chronic (4) Chronic kidney disease: Code(s): N18.9 - Chronic kidney disease, unspecified Status: Chronic (5) Hypertension: Code(s): I10 - Essential (primary) hypertension Status: Acute History of Present Illness Consult details Consult date: 12/27/21 Reason for consult: other (CT scan suggesting bowel ischemia with possible perforation ) Requesting physician: Katelynn Lopez MD Narrative: This is an 86-year-old female with a history of insulin-dependent diabetes mellitus, chronic kidney disease, hypertension, and multiple previous abdominal surgeries. She presented to the emergency department due to generalized weakness, vomiting, and diarrhea. She reports an onset of vomiting and diarrhea 3 days ago. No known sick contacts. She began feeling very weak and was unable to even keep liquids down yesterday. She denies any fever or chills. She requested to go to the ER for further evaluation and was taken to [place] ER. Chest x-ray showed no acute cardiopulmonary disease. CT scan of the abdomen and pelvis showed a small amount of free air adjacent to the ascending colon and portal venous gas noted in the left hepatic lobe, suspicious for ischemic bowel with perforation. Also noted was multiple ventral wall hernias, 1 of which adjacent to the umbilicus contained some nonobstructed colon. Labs showed a white blood cell count of 6.0, lactic acid 1.7, creatinine 1.8, and other labs were unremarkable. She was COVID tested and was negative. Blood cultures were drawn. The patient was directly admitted to [facility]. Our service has been consulted for possible bowel ischemia and perforation. She has been admitted to the hospitalist service and is NPO. The patient is now seen on the medical floor. She denies any abdominal pain at this time. She reports having severe right lower quadrant abdominal pain while in the ED at [place], which resolved with IV pain medication. She denies any diarrhea since yesterday, but reports flatus today. She reportedly had pain medication earlier this morning, which was actually for her back pain not abdominal pain. No other complaints at this time. She does have a history of having perforated diverticulitis in the and subsequently had a colon
--- NOTE | 2021-12-27 11:53 | PM.IMPN ---
Progress Note: A&P Additional Plan Assessment and plan (1) Intractable nausea and vomiting: Code(s): R11.2 - Nausea with vomiting, unspecified Status: Acute Assessment and Plan: - NPO except for ice chips - Supportive care - Offer Zofran as needed. - IVF of D5 1/2% at 75 ml/hr. (2) Perforated bowel: Code(s): K63.1 - Perforation of intestine (nontraumatic) Status: Acute Assessment and Plan: - Continue Zosyn. - Waiting on General surgery recommendations. - Pt. having pain. Will continue Morphine as needed. (3) Chronic kidney disease: Code(s): N18.9 - Chronic kidney disease, unspecified Status: Acute Assessment and Plan: - Gentle IV fluid hydration of D5 1/2 NS at 75 ml/hr - Continue to monitor - Holding lisinopril and hydrochlorothiazide - Avoid as many Nephrotoxic medications as possible - Accurate I&O (4) Insulin dependent diabetes mellitus: Status: Acute Assessment and Plan: - Patient is NPO - Accu-Cheks q.6 hours - Insulin sliding scale as needed - D5 1/2 NS AT 75 CC AN HOUR (5) Hypertension: Code(s): I10 - Essential (primary) hypertension Status: Acute Assessment and Plan: - Hydralazine 10 mg p.r.n. Q 8 hours for systolic of 150 or above, or Metoprolol 5 mg IVP BID as pt. is also tachycardic. May consider making scheduled instead of PRN. - Continue to monitor Time Spent With Patient Time with patient: 15 - 25 minutes Subjective Date/time seen: 12/27/21 5385 This pt. was examined at the bedside in interval assessment from her admission. The pt. was reportedly transferred here from outside hospital where she presented with a couple of days of N/V/D and localized RLQ abdominal pain. CT there showed probable bowel perforation and she was transferred here. Upon further review of the CT findings, there is a Small amount of free air adjacent to the ascending colon, suspicious for perforation. There is portal venous gas noted in left hepatic lobe. This constellation of findings is suspicious for ischemic bowel. General surgery is consulted and we are awaiting their recommendations for management for this patient. Pt. complains to me of abdominal pain that is worse in the RLQ and also of mild nausea. She has no CP, dyspnea and has not had any further vomiting or diarrhea. Review of Systems Review of Systems: A 12 point ROS was performed and is otherwise negative with exception of what is noted in HPI. All systems reviewed & are unremarkable except as noted in HPI and below Exam Const: General: no acute distress and uncomfortable (Secondary to abdominal pain.) HENMT: Mouth: Yes moist mucous membranes Eyes: Sclera: sclerae normal Neck: Neck: supple and no JVD Lymphatic: lymphadenopathy not noted Resp: Effort & Inspection: normal respiratory effort Auscultation: clear to auscultation bilaterally Cardio: Rate: tachycardic GI: GI Palp: Yes Soft to palpation, Yes Tenderness to palpation present (GI) (RLQ) and Yes Guarding due to palpation present (GI) (RLQ) Auscultation: normal bowel sounds Skin: General skin exam: normal color Neuro: General: gait normal Speech: normal speech Extrem: General: normal to inspection Right upper extremity: normal to inspection Left upper extremity: normal to inspection Right lower extremity: normal to inspection Left lower extremity: normal to inspection Psych: Mental Status: mental status grossly normal Affect: normal affect Thought content: Yes Normal thought content present Objective Data Vital Signs Vital Signs: Vital Signs - 24 hr 12/27/21 08:00 12/27/21 10:42 Temperature 98.0 F Pulse Rate 116 H 116 H Respiratory Rate 18 Blood Pressure 161/62 H Pulse Oximetry 97 Intake/Output Intake/Output: Intake & Output 12/24/21 12/25/21 12/26/21 12/27/21 23:59 23:59 23:59 23:59 Intake Total 100 Output Total 300 Balance -200 Meds/Results Medications: Act
[2021-12-27] MEDS: INSULIN HUMAN REGULAR (*BKC) 100 UNITS/ML 6 UNITS SUB-Q ×2 (12:08→18:57)
[2021-12-27 16:00] VITALS: BP 158/58; PULSE 108; RESP 18; TEMP 36.6; O2SAT 97
--- NOTE | 2021-12-27 16:02 | PCPTNOTE ---
Attempted PT evaluation, Patient refused stating I'm too tired. RN aware.
[2021-12-27 20:11] LABS: Glucose Point of Care 308 mg/dl (65-105)
[2021-12-27 20:46] VITALS: RESP 18; O2SAT 96
[2021-12-27 23:57] LABS: Glucose Point of Care 273 mg/dl (65-105)
[2021-12-28] MEDS: INSULIN HUMAN REGULAR (*BKC) 100 UNITS/ML 6 UNITS SUB-Q ×5 (00:02→23:33)
[2021-12-28] MEDS: DEXTROSE 5%/0.45% SOD CHL 1,000 ML 75 ML IV CONT (00:48)
[2021-12-28 01:39] VITALS: BP 144/60; PULSE 100; RESP 18; TEMP 36.7; O2SAT 97
[2021-12-28 05:34] LABS: Glucose Point of Care 245 mg/dl (65-105)
[2021-12-28 05:52] LABS: Basophils Percent Auto 0.4 % (0.2-1.2); Eosinophils Percent Auto 0.2 % (0-4.4); Hematocrit 37.4 % (37.0-47.0); Hemoglobin 12.3 g/dL (12.0-15.0); Immature Granulocyte Absolute 0.06 K/mm3 (0.00-0.031); Immature Granulocyte Percent A 0.6 % (0-0.5); Lymphocytes Absolute Auto 2.52 K/mm3 (0.9-3.2); Lymphocytes Percent Auto 24.9 % (18.3-44.2); Mean Corpuscular HGB Conc 32.9 g/dl (32-36); Mean Corpuscular Hemoglobin 29.6 pg (26-34); Mean Corpuscular Volume 90.1 fl (80-100); Mean Platelet Volume 9.9 fl (7.4-10.4); Monocytes Absolute Auto 0.9 K/mm3 (0.1-0.6); Monocytes Percent Auto 8.5 % (2.6-8.5); Neutrophils Absolute Auto 6.6 K/mm3 (1.3-6.7); Neutrophils Percent Auto 65.4 % (45.5-73.1); Platelet Count Result 166 k/mm3 (150-375); Red Blood Count 4.15 M/mm3 (4.2-5.4); Red Cell Distribution Width 14.1 % (11.5-14.5); White Blood Count 10.1 K/mm3 (4.5-10.0)
[2021-12-28 06:05] LABS: Potassium 3.4 mmol/L (3.4-5.0)
[2021-12-28 06:20] LABS: Anion Gap 7 mmol/L (8-16); Blood Urea Nitrogen 22 mg/dL (7-17); Calcium 7.8 mg/dL (8.4-10.2); Carbon Dioxide 20 mmol/L (22-30); Chloride 105 mmol/L (98-107); Estimated CRCL calculation 30 ml/min; Estimated Glomerular Filt Rate 47; Glucose 238 mg/dL (65-110); Sodium 132 mmol/L (137-145)
[2021-12-28] MEDS: PANTOPRAZOLE SODIUM IV 40 MG VIAL IV PUSH (08:08)
[2021-12-28] MEDS: HEPARIN SODIUM 5,000 UNITS/ML VIAL 5000 UNITS SUB-Q ×2 (08:08→20:15)
--- NOTE | 2021-12-28 08:27 | PM.PNGS ---
Progress Note: A&P Assessment and Plan (1) Abnormal CT of the abdomen: Code(s): R93.5 - Abnormal findings on diagnostic imaging of other abdominal regions, including retroperitoneum Status: Acute Assessment and Plan: Patient having more right-sided abdominal pain today. She is also more tender on exam. WBC actually down to 10K, afebrile, lactic remains normal. Will get plain films and discuss with Dr. Barron. (2) Perforated bowel: Code(s): K63.1 - Perforation of intestine (nontraumatic) Status: Acute Assessment and Plan: Initial CT suggests punctate free air adjacent to the ascending colon with findings concerning for bowel ischemia. See plan above. Continue broad-spectrum IV antibiotics, IV fluids, and bowel rest. Subjective Subjective Date/Time Seen: 12/28/21 08:27 Patient reports: still having pain, flatus, bowel movement (x 1 yesterday evening), nausea and afebrile Interval history: Patient seen and examined this morning. She reports having more abdominal pain today. Her abdominal pain is across the entire right side of her abdomen and she states it is aggravated by deep breathing and movement. Had some nausea this morning that subsided spontaneously, no vomiting or bloating. She had a BM last night but was cleaned up by staff and is unable to report color/consistency of stool. Review of Systems Review of Systems: All systems reviewed & are unremarkable except as noted in HPI and below Exam Const: General: no acute distress, awake and uncomfortable Orientation/consciousness: patient oriented x3 GI: Inspection: non-distended GI Palp: Yes Soft to palpation, Yes Tenderness to palpation present (GI) (RUQ, RLQ), Yes Guarding due to palpation present (GI) (voluntary guarding with palpation of entire right side of abd) and No Rebound tenderness present Percussion: Yes normal to percussion Auscultation: Hypoactive bowel sounds present Neuro: General: moves all extremities and no focal motor deficits Extrem: General: no clubbing, cyanosis or edema Psych: Insight: Good insight present (Psych) Judgement: Good judgement present (Psych) Objective Data Vital Signs Vital Signs: Vital Signs - 24 hr 12/27/21 10:42 12/27/21 16:00 12/27/21 20:46 Temperature 97.8 F Pulse Rate 116 H 108 H Respiratory Rate 18 18 Blood Pressure 158/58 H Pulse Oximetry 97 96 12/28/21 01:39 Temperature 98.0 F Pulse Rate 100 Respiratory Rate 18 Blood Pressure 144/60 H Pulse Oximetry 97 Intake/Output Intake/Output: Intake & Output 12/25/21 12/26/21 12/27/21 12/28/21 23:59 23:59 23:59 23:59 Intake Total 1550 1100 Output Total 600 800 Balance 950 300 Meds/Results Medications: Active Medications Generic Name Dose Route Start Last Admin Trade Name Freq PRN Reason Stop Dose Admin Heparin Sodium (Porcine) 5,000 units 12/27/21 09:00 12/28/21 08:08 Heparin Sodium 5,000 Units/Ml Vial SUB-Q 5,000 units Q12HR BENJY Administration Hydralazine HCl 10 mg 12/27/21 00:04 Hydralazine Hcl 20 Mg/Ml Vial IV PUSH Q8H PRN Blood Pressure - High SBP>150 Dextrose/Sodium Chloride 1,000 mls @ 75 mls/hr 12/27/21 00:05 12/28/21 05:35 Dextrose 5% Sodium Chloride 0.45% IV CONT 0 mls/hr .[id number] BENJY Infusion Piperacillin Sod/Tazobactam Sod 2.25 gm in 50 mls @ 100 mls/hr 12/27/21 11:00 12/28/21 05:35 Zosyn 2.25 Gm/D5w 50 Ml IVPB 100 mls/hr Q6HR BENJY Administration Insulin Human Regular 6 units 12/27/21 06:00 12/28/21 05:36 Insulin Human Regular (*Bkc) 100 Units/Ml SUB-Q 6 units Q6HR BENJY Administration Metoprolol Tartrate 5 mg 12/27/21 10:23 12/27/21 10:42 Metoprolol Tartrate Inj 5 Mg/5 Ml Vial IV PUSH 5 mg BID PRN Administration SBP>160 AND DBP>90 WITH PULSE Morphine Sulfate 1 mg 12/27/21 00:02 12/27/21 07:39 Morphine Sulfate (*Crx) 2 Mg/Ml Inj IV PUSH 1 mg Q4H PRN Administration Pain Rated 7-10 Ondansetron HC
[2021-12-28] MEDS: MORPHINE SULFATE (*CRX) 2 MG/ML INJ 1 MG IV PUSH (09:40)
--- NOTE | 2021-12-28 11:15 | PM.IMPN ---
Progress Note: A&P Assessment and Plan (1) Intractable nausea and vomiting: Code(s): R11.2 - Nausea with vomiting, unspecified Status: Acute Assessment and Plan: NPO except for ice chips Zofran ordered Xray this am seems to be unchanged IV fluids continued Supportive care (2) Perforated bowel: Code(s): K63.1 - Perforation of intestine (nontraumatic) Status: Acute Assessment and Plan: Patient started on Zosyn General surgery consulted Pain medications ordered Antibiotics on board trend symptoms Trend abd xrays Supportive care (3) Chronic kidney disease: Code(s): N18.9 - Chronic kidney disease, unspecified Status: Chronic Assessment and Plan: Receiving IV fluids Continue to monitor Holding lisinopril and hydrochlorothiazide INTAKE AND OUTPUT DAILY trend labs avoid nephrotoxic medications BUN/Cr 13/11.10 seems to be at baseline (4) Insulin dependent diabetes mellitus: Status: Chronic Assessment and Plan: Patient is NPO Accu-Cheks q.6 hours Insulin sliding scale as needed D5 1/2 NS AT 75 CC AN HOUR (5) Hypertension: Code(s): I10 - Essential (primary) hypertension Status: Acute Assessment and Plan: Hydralazine 10 mg p.r.n. Q 8 hours for systolic of 150 or above Continue to monitor Time Spent With Patient Time with patient: Greater than 35 minutes Subjective Date/time seen: 12/28/21 1115 Interval history: Date/Time: 12/27/21 00:05 Narrative: This is an 86-year-old female with past medical history significant for diverticulosis, diverticulitis, chronic kidney disease, hypertension, insulin-dependent diabetes mellitus. Patient presents as a direct admit from outside hospital after patient was seen and evaluated at an emergency room and [facility] due to abdominal pain nausea and vomiting of 1+ day duration patient unable to eat anything in the last 24 hours or so due to nausea and vomiting, abdominal pain is localized to the right lower quadrant no radiating, patient also had diarrhea no blood in the stools or phlegm. Patient has been having chills however no fevers. Patient has been in her usual state of health prior to this. Patient with prior surgery to the abdomen in number of years ago apparently in the 90s for diverticulitis. Preliminary workup was significant for CT of abdomen and pelvis with probable perforated bowel. Patient has been admitted for further evaluation management and treatment. Date/time seen: 12/27/21 0388 This pt. was examined at the bedside in interval assessment from her admission. The pt. was reportedly transferred here from outside hospital where she presented with a couple of days of N/V/D and localized RLQ abdominal pain. CT there showed probable bowel perforation and she was transferred here. Upon further review of the CT findings, there is a Small amount of free air adjacent to the ascending colon, suspicious for perforation. There is portal venous gas noted in left hepatic lobe. This constellation of findings is suspicious for ischemic bowel. General surgery is consulted and we are awaiting their recommendations for management for this patient. Pt. complains to me of abdominal pain that is worse in the RLQ and also of mild nausea. She has no CP, dyspnea and has not had any further vomiting or diarrhea. Date/Time 12/28/21 1115 Patient is lying in bed. Patient seems to be doing the same today. She states that her abdominal pain is about a 5 to 6/10. She also states that she is hungry. She denies any nausea, vomiting however she did say that she thinks some of her abdominal pain is from the nausea she had for many days prior to today. She also stated that she got the best sleep she has had last night. She denies any chest pain, shortness a breath, diarrhea or constipation. Review of Systems Review of Systems: All systems reviewed & are unremarkable except as noted in HPI and below Exam Narrativ
[2021-12-28 12:59] LABS: Glucose Point of Care 246 mg/dl (65-105)
[2021-12-28 14:00] VITALS: BP 153/72; PULSE 107; RESP 18; TEMP 36; O2SAT 96
[2021-12-28 16:40] LABS: Glucose Point of Care 298 mg/dl (65-105)
[2021-12-28] MEDS: DEXTROSE 5%/0.45% SOD CHL 1,000 ML 50 ML IV CONT (17:56)
[2021-12-28 19:07] VITALS: BP 141/65; PULSE 97; RESP 18; TEMP 36.5; O2SAT 99
[2021-12-28 20:15] VITALS: RESP 18; O2SAT 99
[2021-12-28 23:31] LABS: Glucose Point of Care 159 mg/dl (65-105)
[2021-12-29 04:28] VITALS: BP 154/59; PULSE 104; RESP 18; TEMP 36.3; O2SAT 100
[2021-12-29 05:40] LABS: Basophils Absolute Auto 0.1 K/mm3 (0.0-0.1); Basophils Percent Auto 0.5 % (0.2-1.2); Eosinophils Absolute Auto 0.1 K/mm3 (0-0.3); Eosinophils Percent Auto 0.7 % (0-4.4); Hematocrit 37.5 % (37.0-47.0); Hemoglobin 12.4 g/dL (12.0-15.0); Immature Granulocyte Absolute 0.07 K/mm3 (0.00-0.031); Immature Granulocyte Percent A 0.6 % (0-0.5); Lymphocytes Absolute Auto 2.99 K/mm3 (0.9-3.2); Mean Corpuscular HGB Conc 33.1 g/dl (32-36); Mean Corpuscular Hemoglobin 29.6 pg (26-34); Mean Corpuscular Volume 89.5 fl (80-100); Mean Platelet Volume 9.8 fl (7.4-10.4); Monocytes Absolute Auto 0.8 K/mm3 (0.1-0.6); Monocytes Percent Auto 7.1 % (2.6-8.5); Neutrophils Absolute Auto 7.1 K/mm3 (1.3-6.7); Neutrophils Percent Auto 64.1 % (45.5-73.1); Platelet Count Result 180 k/mm3 (150-375); Red Blood Count 4.19 M/mm3 (4.2-5.4); Red Cell Distribution Width 13.8 % (11.5-14.5); White Blood Count 11.1 K/mm3 (4.5-10.0)
[2021-12-29 05:47] LABS: Alanine Aminotransferase 18 U/L (4-35); Albumin Level 3.4 g/dL (3.5-5.1); Alkaline Phosphatase 101 U/L (38-126); Anion Gap 7 mmol/L (8-16); Aspartate Amino Transferase 29 U/L (14-36); Bilirubin,Total 0.9 mg/dL (0.2-1.3); Blood Urea Nitrogen 16 mg/dL (7-17); Calcium 8.1 mg/dL (8.4-10.2); Carbon Dioxide 21 mmol/L (22-30); Chloride 104 mmol/L (98-107); Estimated CRCL calculation 33 ml/min; Estimated Glomerular Filt Rate 53; Glucose 188 mg/dL (65-110); Magnesium 1.3 mg/dL (1.6-2.3); Potassium 3.7 mmol/L (3.4-5.0); Sodium 132 mmol/L (137-145)
[2021-12-29] MEDS: INSULIN HUMAN REGULAR (*BKC) 100 UNITS/ML 6 UNITS SUB-Q ×4 (06:52→20:28)
[2021-12-29] MEDS: PANTOPRAZOLE SODIUM IV 40 MG VIAL IV PUSH (08:52)
[2021-12-29] MEDS: MAGNESIUM SULF 4 GM/WATER100ML 4 GM/100 ML BAG IVPB (08:52)
[2021-12-29] MEDS: HEPARIN SODIUM 5,000 UNITS/ML VIAL 5000 UNITS SUB-Q ×2 (08:52→20:24)
--- NOTE | 2021-12-29 09:00 | PM.IMPN ---
Progress Note: A&P Assessment and Plan (1) Intractable nausea and vomiting: Code(s): R11.2 - Nausea with vomiting, unspecified Status: Acute Assessment and Plan: Diet advanced to full liquids Zofran ordered Xray shows normal gas bowel pattern 12/28/21 IV fluids continued Supportive care Surgery to advance diet (2) Perforated bowel: Code(s): K63.1 - Perforation of intestine (nontraumatic) Status: Acute Assessment and Plan: Patient started on Zosyn General surgery consulted Pain medications ordered Antibiotics Zosyn 2.25gm trend symptoms Abd xray shows normal bowel gas pattern (12/28/21) Supportive care (3) Chronic kidney disease: Code(s): N18.9 - Chronic kidney disease, unspecified Status: Chronic Assessment and Plan: Receiving IV fluids Continue to monitor Holding lisinopril and hydrochlorothiazide INTAKE AND OUTPUT DAILY trend labs avoid nephrotoxic medications BUN/Cr 16/1.00 seems to be at baseline (4) Insulin dependent diabetes mellitus: Status: Chronic Assessment and Plan: Current glucose is 188 Patient is NPO Accu-Cheks q.6 hours Insulin sliding scale as needed D5 1/2 NS AT 75 CC AN HOUR (5) Hypertension: Code(s): I10 - Essential (primary) hypertension Status: Acute Assessment and Plan: Current BP is 154/59 Hydralazine 10 mg p.r.n. Q 8 hours for systolic of 150 or above Continue to monitor Time Spent With Patient Time with patient: Greater than 35 minutes Subjective Date/time seen: 12/29/21 09:00 Interval history: Date/Time: 12/27/21 00:05 Narrative: This is an 86-year-old female with past medical history significant for diverticulosis, diverticulitis, chronic kidney disease, hypertension, insulin-dependent diabetes mellitus. Patient presents as a direct admit from outside hospital after patient was seen and evaluated at an emergency room and [facility] due to abdominal pain nausea and vomiting of 1+ day duration patient unable to eat anything in the last 24 hours or so due to nausea and vomiting, abdominal pain is localized to the right lower quadrant no radiating, patient also had diarrhea no blood in the stools or phlegm. Patient has been having chills however no fevers. Patient has been in her usual state of health prior to this. Patient with prior surgery to the abdomen in number of years ago apparently in the 90s for diverticulitis. Preliminary workup was significant for CT of abdomen and pelvis with probable perforated bowel. Patient has been admitted for further evaluation management and treatment. Date/time seen: 12/27/21 0745 This pt. was examined at the bedside in interval assessment from her admission. The pt. was reportedly transferred here from outside hospital where she presented with a couple of days of N/V/D and localized RLQ abdominal pain. CT there showed probable bowel perforation and she was transferred here. Upon further review of the CT findings, there is a Small amount of free air adjacent to the ascending colon, suspicious for perforation. There is portal venous gas noted in left hepatic lobe. This constellation of findings is suspicious for ischemic bowel. General surgery is consulted and we are awaiting their recommendations for management for this patient. Pt. complains to me of abdominal pain that is worse in the RLQ and also of mild nausea. She has no CP, dyspnea and has not had any further vomiting or diarrhea. Date/Time 12/28/21 1115 Patient is lying in bed. Patient seems to be doing the same today. She states that her abdominal pain is about a 5 to 6/10. She also states that she is hungry. She denies any nausea, vomiting however she did say that she thinks some of her abdominal pain is from the nausea she had for many days prior to today. She also stated that she got the best sleep she has had last night.
--- NOTE | 2021-12-29 09:00 | P.PNIM_ITS ---
Progress Note: A&P Assessment and Plan (1) Intractable nausea and vomiting: Code(s): R11.2 - Nausea with vomiting, unspecified Status: Acute Assessment and Plan: * Diet advanced to full liquids * Zofran ordered * Xray shows normal gas bowel pattern 12/28/21 * IV fluids continued * Supportive care * Surgery to advance diet (2) Perforated bowel: Code(s): K63.1 - Perforation of intestine (nontraumatic) Status: Acute Assessment and Plan: * Patient started on Zosyn * General surgery consulted * Pain medications ordered * Antibiotics Zosyn 2.25gm * trend symptoms * Abd xray shows normal bowel gas pattern (12/28/21) * Supportive care (3) Chronic kidney disease: Code(s): N18.9 - Chronic kidney disease, unspecified Status: Chronic Assessment and Plan: * Receiving IV fluids * Continue to monitor * Holding lisinopril and hydrochlorothiazide * INTAKE AND OUTPUT DAILY * trend labs * avoid nephrotoxic medications * BUN/Cr 16.00 * seems to be at baseline (4) Insulin dependent diabetes mellitus: Status: Chronic Assessment and Plan: * Current glucose is 188 * Patient is NPO * Accu-Cheks q.6 hours * Insulin sliding scale as needed * D5 1/2 NS AT 75 CC AN HOUR (5) Hypertension: Code(s): I10 - Essential (primary) hypertension Status: Acute Assessment and Plan: * Current BP is 154/59 * Hydralazine 10 mg p.r.n. Q 8 hours for systolic of 150 or above * Continue to monitor Time Spent With Patient Time with patient: Greater than 35 minutes Subjective Date/time seen: 12/29/21 09:00 Interval history: Date/Time: 12/27/21 00:05 Narrative: This is an 86-year-old female with past medical history significant for diverticulosis, diverticulitis, chronic kidney disease, hypertension, insulin-dependent diabetes mellitus. Patient presents as a direct admit from outside hospital after patient was seen and evaluated at an emergency room and [facility] due to abdominal pain nausea and vomiting of 1+ day duration patient unable to eat anything in the last 24 hours or so due to nausea and vomiting, abdominal pain is localized to the right lower quadrant no radiating, patient also had diarrhea no blood in the stools or phlegm. Patient has been having chills however no fevers. Patient has been in her usual state of health prior to this. Patient with prior surgery to the abdomen in number of years ago apparently in the 90s for diverticulitis. Preliminary workup was significant for CT of abdomen and pelvis with probable perforated bowel. Patient has been admitted for further evaluation management and treatment. Date/time seen: 12/27/21 8634 This pt. was examined at the bedside in interval assessment from her admission. The pt. was reportedly transferred here from outside hospital where she presented with a couple of days of N/V/D and localized RLQ abdominal pain. CT there showed probable bowel perforation and she was transferred here. Upon further review of the CT findings, there is a Small amount of free air adjacent to the ascending colon, suspicious for perforation. There is portal venous gas noted in left hepatic lobe. This constellation of findings is suspicious for ischemic bowel. General surgery is consulted and we are awaiting their recommendations for management for this patient. Pt. complains to me of abdominal pain that is worse in the RLQ and also of mild nausea. She h
--- NOTE | 2021-12-29 09:05 | PM.PNGS ---
Progress Note: A&P Assessment and Plan (1) Perforated bowel: Code(s): K63.1 - Perforation of intestine (nontraumatic) Status: Acute Assessment and Plan: doing well c conservative mgmt, exam benign, labs largely unremarkable, cont abx, ADAT Subjective Subjective Date/Time Seen: 12/29/21 09:05 feels pretty good, no abd pain, joana clears Review of Systems Review of Systems: All systems reviewed & are unremarkable except as noted in HPI and below Exam Const: General: cooperative, comfortable and no acute distress Orientation/consciousness: patient oriented x3 Resp: Auscultation: clear to auscultation bilaterally Cardio: Rate: tachycardic Rhythm: regular rhythm GI: Inspection: normal to inspection and non-distended GI Palp: Yes Soft to palpation, No Firmness to palpation present (GI), No Tenderness to palpation present (GI), No Guarding due to palpation present (GI) and No Rigid due to palpation Objective Data Vital Signs Vital Signs: Vital Signs - 24 hr 12/28/21 14:00 12/28/21 19:07 12/28/21 20:15 Temperature 36.0 C L 36.5 C Pulse Rate 107 H 97 Respiratory Rate 18 18 18 Blood Pressure 153/72 H 141/65 H Pulse Oximetry 96 99 99 12/29/21 04:28 Temperature 36.3 C L Pulse Rate 104 H Respiratory Rate 18 Blood Pressure 154/59 H Pulse Oximetry 100 Intake/Output Intake/Output: Intake & Output 12/26/21 12/27/21 12/28/21 12/29/21 23:59 23:59 23:59 23:59 Intake Total 1550 2660 540 Output Total 600 2000 600 Balance 950 660 -60 Meds/Results Medications: Active Medications Generic Name Dose Route Start Last Admin Trade Name Freq PRN Reason Stop Dose Admin Heparin Sodium (Porcine) 5,000 units 12/27/21 09:00 12/29/21 08:52 Heparin Sodium 5,000 Units/Ml Vial SUB-Q 5,000 units Q12HR BENJY Administration Hydralazine HCl 10 mg 12/27/21 00:04 Hydralazine Hcl 20 Mg/Ml Vial IV PUSH Q8H PRN Blood Pressure - High SBP>150 Dextrose/Sodium Chloride 1,000 mls @ 50 mls/hr 12/27/21 00:05 12/29/21 06:48 Dextrose 5% Sodium Chloride 0.45% IV CONT 0 mls/hr .Q20H BENJY Infusion Piperacillin Sod/Tazobactam Sod 2.25 gm in 50 mls @ 100 mls/hr 12/27/21 11:00 12/29/21 06:48 Zosyn 2.25 Gm/D5w 50 Ml IVPB 100 mls/hr Q6HR BENJY Administration Insulin Human Regular 6 units 12/27/21 06:00 12/29/21 06:52 Insulin Human Regular (*Bkc) 100 Units/Ml SUB-Q 6 units Q6HR BENJY Administration Metoprolol Tartrate 5 mg 12/27/21 10:23 12/27/21 10:42 Metoprolol Tartrate Inj 5 Mg/5 Ml Vial IV PUSH 5 mg BID PRN Administration SBP>160 AND DBP>90 WITH PULSE Morphine Sulfate 1 mg 12/27/21 00:02 12/28/21 09:40 Morphine Sulfate (*Crx) 2 Mg/Ml Inj IV PUSH 1 mg Q4H PRN Administration Pain Rated 7-10 Ondansetron HCl 4 mg 12/27/21 03:46 12/27/21 04:20 Ondansetron Inj 4 Mg/2 Ml Vial IV PUSH 4 mg Q6H PRN Administration Nausea And Vomiting Pantoprazole Sodium 40 mg 12/27/21 09:00 12/29/21 08:52 Pantoprazole Sodium Iv 40 Mg Vial IV PUSH 40 mg QAM BENJY Administration Radiology Results: ITS Impressions Abdomen X-Ray 12/28/21 08:43 IMPRESSION: 1. Normal bowel gas pattern. Labs Labs: Laboratory Results - last 24 hr 12/28/21 12/28/21 12/28/21 12:49 16:22 23:21 WBC RBC Hgb Hct MCV MCH MCHC RDW Plt Count MPV Immature Gran % (Auto) Neut % (Auto) Lymph % (Auto) [place] % (Auto) Eos % (Auto) Baso % (Auto) Lymph # (Auto) [place] # (Auto) Eos # (Auto) Baso # (Auto) Abs Immat Gran (auto) Absolute Neuts (auto) Absolute Nucleated RBC Nucleated RBC % Sodium Potassium Chloride Carbon Dioxide Anion Gap BUN Creatinine Estim Creat Clear Calc Estimated GFR Glucose POC Capillary Glucose 246 H 298 H 159 H Calcium Magnesium Total Bilirubin AST ALT Alkaline Phosphatase Total Prot
[2021-12-29 12:00] LABS: Glucose Point of Care 345 mg/dl (65-105)
[2021-12-29 14:29] VITALS: BP 150/83; PULSE 99; RESP 18; TEMP 36.1; O2SAT 100
[2021-12-29 16:52] LABS: Glucose Point of Care 276 mg/dl (65-105)
[2021-12-29] MEDS: DEXTROSE 5%/0.45% SOD CHL 1,000 ML 50 ML IV CONT (17:43)
[2021-12-29 19:15] VITALS: BP 141/47; PULSE 97; RESP 18; TEMP 37.2; O2SAT 94
[2021-12-29 20:00] VITALS: PULSE 97; RESP 18; O2SAT 94
[2021-12-29 21:02] LABS: Glucose Point of Care 267 mg/dl (65-105)
[2021-12-30 04:10] VITALS: BP 147/67; PULSE 97; RESP 16; TEMP 36.6; O2SAT 96
[2021-12-30 05:30] LABS: Basophils Percent Auto 0.4 % (0.2-1.2); Eosinophils Absolute Auto 0.1 K/mm3 (0-0.3); Eosinophils Percent Auto 0.7 % (0-4.4); Hematocrit 35.2 % (37.0-47.0); Hemoglobin 12.1 g/dL (12.0-15.0); Immature Granulocyte Absolute 0.07 K/mm3 (0.00-0.031); Immature Granulocyte Percent A 0.7 % (0-0.5); Lymphocytes Absolute Auto 2.85 K/mm3 (0.9-3.2); Lymphocytes Percent Auto 30.3 % (18.3-44.2); Mean Corpuscular HGB Conc 34.4 g/dl (32-36); Mean Corpuscular Hemoglobin 29.4 pg (26-34); Mean Corpuscular Volume 85.4 fl (80-100); Mean Platelet Volume 10.3 fl (7.4-10.4); Monocytes Absolute Auto 0.7 K/mm3 (0.1-0.6); Monocytes Percent Auto 7.4 % (2.6-8.5); Neutrophils Absolute Auto 5.7 K/mm3 (1.3-6.7); Neutrophils Percent Auto 60.5 % (45.5-73.1); Platelet Count Result 192 k/mm3 (150-375); Red Blood Count 4.12 M/mm3 (4.2-5.4); Red Cell Distribution Width 13.2 % (11.5-14.5); White Blood Count 9.4 K/mm3 (4.5-10.0)
[2021-12-30 05:49] LABS: Potassium 3.3 mmol/L (3.4-5.0)
[2021-12-30 05:55] LABS: Alanine Aminotransferase 17 U/L (4-35); Albumin Level 3.3 g/dL (3.5-5.1); Alkaline Phosphatase 124 U/L (38-126); Anion Gap 8 mmol/L (8-16); Aspartate Amino Transferase 24 U/L (14-36); Bilirubin,Total 0.6 mg/dL (0.2-1.3); Blood Urea Nitrogen 12 mg/dL (7-17); Calcium 7.9 mg/dL (8.4-10.2); Carbon Dioxide 22 mmol/L (22-30); Chloride 103 mmol/L (98-107); Estimated CRCL calculation 40 ml/min; Estimated Glomerular Filt Rate > 60; Glucose 259 mg/dL (65-110); Magnesium 1.7 mg/dL (1.6-2.3); Sodium 133 mmol/L (137-145)
[2021-12-30] MEDS: INSULIN HUMAN REGULAR (*BKC) 100 UNITS/ML 6 UNITS SUB-Q ×2 (06:37→12:44)
[2021-12-30 06:41] LABS: Glucose Point of Care 328 mg/dl (65-105)
[2021-12-30 07:51] LABS: Glucose Point of Care 296 mg/dl (65-105)
[2021-12-30] MEDS: PANTOPRAZOLE SODIUM IV 40 MG VIAL IV PUSH (08:21)
[2021-12-30] MEDS: HEPARIN SODIUM 5,000 UNITS/ML VIAL 5000 UNITS SUB-Q (08:23)
--- NOTE | 2021-12-30 10:30 | P.DS_ITS ---
DS: Admitting Diagnosis Discharge Date 12/30/21 1030 Admitting Diagnosis Bowel perforation DS: Discharge Diagnosis Discharge Diagnosis (1) Intractable nausea and vomiting: Code(s): R11.2 - Nausea with vomiting, unspecified Status: Acute Assessment and Plan: * Diet advanced to full liquids * Zofran ordered * Xray shows normal gas bowel pattern 12/28/21 * IV fluids continued * Supportive care * Surgery to advance diet (2) Perforated bowel: Code(s): K63.1 - Perforation of intestine (nontraumatic) Status: Acute Assessment and Plan: * Patient started on Zosyn * General surgery consulted * Pain medications ordered * Antibiotics Zosyn 2.25gm * trend symptoms * Abd xray shows normal bowel gas pattern (12/28/21) * Supportive care (3) Chronic kidney disease: Code(s): N18.9 - Chronic kidney disease, unspecified Status: Chronic Assessment and Plan: * Receiving IV fluids * Continue to monitor * Holding lisinopril and hydrochlorothiazide * INTAKE AND OUTPUT DAILY * trend labs * avoid nephrotoxic medications * BUN/Cr 12/0.80 * seems to be at baseline (4) Insulin dependent diabetes mellitus: Status: Chronic Assessment and Plan: * Current glucose is 188 * Patient is NPO * Accu-Cheks q.6 hours * Insulin sliding scale as needed * Fluids are dc'd at this time (5) Hypertension: Code(s): I10 - Essential (primary) hypertension Status: Acute Assessment and Plan: * Current BP is 147/67 * Hydralazine 10 mg p.r.n. Q 8 hours for systolic of 150 or above * Continue to monitor DS: Summary Hospital Course Hospital Course: Patient is an 86-year-old female with a past medical history of diabetes, diverticulitis, CKD who was a direct admit from an outside hospital for evaluation of abdominal pain accompanied with nausea and vomiting. Patient was unable to eat for [address] of the abdomen and pelvis found probable perforation. Serial abdominal x-rays showed normal bowel gas patterns as of 12/28/2021. Patient was hydrated with IV fluids and was left NPO for bowel rest. General surgery was consulted and patient was started on IV Zosyn for antibiotic coverage. Patient was given pain medications for comfort management. Glucose of remained stable throughout the entire visit. Diet has been advanced patient has been tolerating a diabetic diet. BUN creatinine were noted to be 46/1.83. IV hydration was provided in BUN and creatinine are back to her baseline of 12/0.80. Patient is doing well and had a BM yesterday. Patient has also been able to get out of bed and get to the commode on her own. She denies any nausea or vomiting at this time. She does still have some residual abdominal pain from all of nausea vomiting she did have. Patient denies any chest pain, shortness of breath, sweats, fevers, chills, dizziness, headaches, lightheadedness. Patient is stable for discharge along with vital signs and labs at this time. Status at Discharge Functional status at discharge: uses cane/walker Overall status at discharge: patient is progressing back to baseline Time Spent with Patient Time attestation: Total time spent providing and/or coordinating discharge services: 48 minutes Time spent: Greater than 30 minutes Specific discharge activities: Diagnostic testing, chart review, developing a t reatment plan, education, care coordination documentation, physical exam, result review
--- NOTE | 2021-12-30 10:30 | PM.DS ---
DS: Admitting Diagnosis Discharge Date 12/30/21 1030 Admitting Diagnosis Bowel perforation DS: Discharge Diagnosis Discharge Diagnosis (1) Intractable nausea and vomiting: Code(s): R11.2 - Nausea with vomiting, unspecified Status: Acute Assessment and Plan: Diet advanced to full liquids Zofran ordered Xray shows normal gas bowel pattern 12/28/21 IV fluids continued Supportive care Surgery to advance diet (2) Perforated bowel: Code(s): K63.1 - Perforation of intestine (nontraumatic) Status: Acute Assessment and Plan: Patient started on Zosyn General surgery consulted Pain medications ordered Antibiotics Zosyn 2.25gm trend symptoms Abd xray shows normal bowel gas pattern (12/28/21) Supportive care (3) Chronic kidney disease: Code(s): N18.9 - Chronic kidney disease, unspecified Status: Chronic Assessment and Plan: Receiving IV fluids Continue to monitor Holding lisinopril and hydrochlorothiazide INTAKE AND OUTPUT DAILY trend labs avoid nephrotoxic medications BUN/Cr 12/0.80 seems to be at baseline (4) Insulin dependent diabetes mellitus: Status: Chronic Assessment and Plan: Current glucose is 188 Patient is NPO Accu-Cheks q.6 hours Insulin sliding scale as needed Fluids are dc'd at this time (5) Hypertension: Code(s): I10 - Essential (primary) hypertension Status: Acute Assessment and Plan: Current BP is 147/67 Hydralazine 10 mg p.r.n. Q 8 hours for systolic of 150 or above Continue to monitor DS: Summary Hospital Course Hospital Course: Patient is an 86-year-old female with a past medical history of diabetes, diverticulitis, CKD who was a direct admit from an outside hospital for evaluation of abdominal pain accompanied with nausea and vomiting. Patient was unable to eat for [address] of the abdomen and pelvis found probable perforation. Serial abdominal x-rays showed normal bowel gas patterns as of 12/28/2021. Patient was hydrated with IV fluids and was left NPO for bowel rest. General surgery was consulted and patient was started on IV Zosyn for antibiotic coverage. Patient was given pain medications for comfort management. Glucose of remained stable throughout the entire visit. Diet has been advanced patient has been tolerating a diabetic diet. BUN creatinine were noted to be 46/1.83. IV hydration was provided in BUN and creatinine are back to her baseline of 12/0.80. Patient is doing well and had a BM yesterday. Patient has also been able to get out of bed and get to the commode on her own. She denies any nausea or vomiting at this time. She does still have some residual abdominal pain from all of nausea vomiting she did have. Patient denies any chest pain, shortness of breath, sweats, fevers, chills, dizziness, headaches, lightheadedness. Patient is stable for discharge along with vital signs and labs at this time. Status at Discharge Functional status at discharge: uses cane/walker Overall status at discharge: patient is progressing back to baseline Time Spent with Patient Time attestation: Total time spent providing and/or coordinating discharge services: 48 minutes Time spent: Greater than 30 minutes Specific discharge activities: Diagnostic testing, chart review, developing a treatment plan, education, care coordination documentation, physical exam, result review Exam Const: General: cooperative, healthy appearing, comfortable, no acute distress, well developed, alert, awake, uncomfortable (Secondary to abdominal pain.) and other (Well-appearing) Nutritional Appearance: average body habitus and well nourished Orientation/consciousness: patient oriented x3 Limitations: no limitations HENMT: Head: normal to inspection, normocephalic and atraumatic Ears: hearing grossly normal bilaterally General nose exam: Normal external nose p
[2021-12-30] MEDS: amLODIPine BESYLATE 5 MG TABLET PO (10:41)
[2021-12-30] MEDS: atenoloL 25 MG TABLET PO (10:41)
[2021-12-30 11:29] LABS: Glucose Point of Care 350 mg/dl (65-105)
--- NOTE | 2021-12-30 12:20 | PM.PNGS ---
Progress Note: A&P Assessment and Plan (1) Perforated bowel: Code(s): K63.1 - Perforation of intestine (nontraumatic) Status: Acute Assessment and Plan: Continues to do well with medical management. Abdominal exam benign. Tolerating a diabetic diet. WBC normal. Okay from our standpoint to discharge the patient today. Would continue oral antibiotics on discharge with a total of a 10 day course. Follow-up with Dr. Barron in 2 weeks. Additional Plan I have discussed the patient's case and plan of care with Dr. Barron. Subjective Subjective Date/Time Seen: 12/30/21 09:20 Patient reports: no new complaints, feels better, tolerating a regular diet, flatus, bowel movement and afebrile Interval history: Patient seen and examined. She reports feeling well today and continues to improve. She is tolerating a diabetic diet. She has already ate breakfast. Denies any nausea, vomiting, or abdominal pain. She has moved her bowels 2 times this morning already. Her stool is loose and brown, no blood noted in stool. No other complaints at this time. Review of Systems Review of Systems: All systems reviewed & are unremarkable except as noted in HPI and below Exam Const: General: comfortable and no acute distress Orientation/consciousness: patient oriented x3 GI: Inspection: non-distended GI Palp: Yes Soft to palpation, No Tenderness to palpation present (GI), No Guarding due to palpation present (GI) and No Rebound tenderness present Auscultation: normal bowel sounds Neuro: General: moves all extremities and no focal motor deficits Extrem: General: normal to inspection Psych: Insight: Good insight present (Psych) Judgement: Good judgement present (Psych) Objective Data Vital Signs Vital Signs: Vital Signs - 24 hr 12/29/21 14:29 12/29/21 19:15 12/29/21 20:00 Temperature 97.0 F L 99 F Pulse Rate 99 97 97 Respiratory Rate 18 18 18 Blood Pressure 150/83 H 141/47 H Pulse Oximetry 100 94 94 12/30/21 04:10 Temperature 97.8 F Pulse Rate 97 Respiratory Rate 16 Blood Pressure 147/67 H Pulse Oximetry 96 Intake/Output Intake/Output: Intake & Output 12/27/21 12/28/21 12/29/21 12/30/21 23:59 23:59 23:59 23:59 Intake Total 1550 2660 2410 340 Output Total 600 2000 1101 300 Balance 390 657 7713 40 Meds/Results Medications: Active Medications Generic Name Dose Route Start Last Admin Trade Name Freq PRN Reason Stop Dose Admin Amlodipine Besylate 5 mg 12/30/21 10:00 Amlodipine Besylate 5 Mg Tablet PO DAILY [facility] Atenolol 25 mg 12/30/21 10:00 Atenolol 25 Mg Tablet PO DAILY [facility] Heparin Sodium (Porcine) 5,000 units 12/27/21 09:00 12/30/21 08:23 Heparin Sodium 5,000 Units/Ml Vial SUB-Q 5,000 units Q12HR BENJY Administration Piperacillin Sod/Tazobactam Sod 2.25 gm in 50 mls @ 100 mls/hr 12/27/21 11:00 12/30/21 06:32 Zosyn 2.25 Gm/D5w 50 Ml IVPB 100 mls/hr Q6HR BENJY Administration Insulin Human Regular 6 units 12/27/21 06:00 12/30/21 06:37 Insulin Human Regular (*Bkc) 100 Units/Ml SUB-Q 6 units Q6HR BENJY Administration Morphine Sulfate 1 mg 12/27/21 00:02 12/28/21 09:40 Morphine Sulfate (*Crx) 2 Mg/Ml Inj IV PUSH 1 mg Q4H PRN Administration Pain Rated 7-10 Ondansetron HCl 4 mg 12/27/21 03:46 12/27/21 04:20 Ondansetron Inj 4 Mg/2 Ml Vial IV PUSH 4 mg Q6H PRN Administration Nausea And Vomiting Pantoprazole Sodium 40 mg 12/27/21 09:00 12/30/21 08:21 Pantoprazole Sodium Iv 40 Mg Vial IV PUSH 40 mg QAM BENJY Administration Radiology Results: ITS Impressions Abdomen X-Ray 12/28/21 08:43 IMPRESSION: 1. Normal bowel gas pattern. Labs Labs: Laboratory Results - last 24 hr 12/29/21 12/29/21 12/30/21 16:37 20:25 04:56 WBC 9.4 RBC 4.12 L Hgb 12.1 Hct 35.2 L MCV 85.4 MCH 29.4 MCHC 34.4 RDW 13.2 Plt Count 192 MPV 10.3 Immature Gran % (Auto) 0.7 H Neut
[2021-12-30] MEDS: POTASSIUM CHLORIDE 20 MEQ TABLET 40 MEQ PO (13:57)
== END 2021-12-30 14:43 | DRG 395 ==
LOC: ANH2MED 12-28 09:15 → ANH3MED 12-29 08:48 → ANH2MED 12-31 12:13 → ANH3MED 12-31 12:13
PROVIDERS: Nurse Practitioner Adult Health; Nurse Practitioner Family; Admitting Provider Internal Medicine; PCP Internal Medicine; Visit Provider Nurse Practitioner
DX: K63.1 Perforation of intestine (nontraumatic) (principal); I12.9 Hypertensive chronic kidney disease with stage 1 through stage 4 chronic kidney disease, or unspecified chronic kidney disease; N18.9 Chronic kidney disease, unspecified; E11.22 Type 2 diabetes mellitus with diabetic chronic kidney disease; K57.90 Diverticulosis of intestine, part unspecified, without perforation or abscess without bleeding; R11.2 Nausea with vomiting, unspecified; Z79.4 Long term (current) use of insulin; Z79.82 Long term (current) use of aspirin; Z90.49 Acquired absence of other specified parts of digestive tract; Z90.710 Acquired absence of both cervix and uterus; Z98.84 Bariatric surgery status
CPT/HCPCS: 36415; 74018; 80048; 80053; 82948; 83605; 83735; 85025; 97110; 97161; 97165; 97530; A9270; C9113; J1644; J1815; J2270; J2405; J2543; J3475

== ENCOUNTER 2022-02-08 11:07 | Outpatient (NON) | payer OTHER, MEDICARE, SELFPAY ==
[2022-02-08 11:49] LABS: Basophils Absolute Auto 0.12 K/mm3 (0.00-0.10); Basophils Percent Auto 1.6 % (0.0-1.0); Eosinophils Absolute Auto 0.26 K/mm3 (0.02-0.50); Eosinophils Percent Auto 3.5 % (1.0-6.0); Hematocrit 39.1 % (35.0-42.0); Hemoglobin 12.3 g/dL (11.7-13.8); Immature Granulocyte Absolute 0.07 K/mm3 (0.00-0.00); Immature Granulocyte Percent A 0.9 % (0.0-0.0); Lymphocytes Absolute Auto 3.19 K/mm3 (1.10-4.50); Lymphocytes Percent Auto 43.1 % (18.0-42.0); Mean Corpuscular HGB Conc 31.5 g/dL (32.0-36.0); Mean Corpuscular Volume 92.2 fL (78.0-102.0); Mean Platelet Volume 11.4 fl (9.2-11.8); Monocytes Absolute Auto 0.76 K/mm3 (0.10-0.90); Monocytes Percent Auto 10.3 % (2.0-11.0); Neutrophils Percent Auto 40.6 % (50.0-70.0); Platelet Count Result 320 K/mm3 (150-420); Red Blood Count 4.24 M/mm3 (4.20-5.40); Red Cell Distribution Width 15.9 % (11.6-14.4); White Blood Count 7.4 K/mm3 (4.8-10.8)
[2022-02-08 12:10] LABS: Creatinine Urine 74.31 mg/dL (40-278); MALB Creatinine Ratio 19.5 mg/g (0-30); Microalbumin Urine Random 14.5 mg/L
[2022-02-08 12:12] LABS: Hemoglobin A1C 7.8 % (<5.7)
[2022-02-08 12:18] LABS: Alanine Aminotransferase 131 U/L (14-59); Albumin Level 3.5 g/dL (3.4-5.0); Alkaline Phosphatase 306 U/L (46-116); Anion Gap 14 mmol/L (8-16); Aspartate Amino Transferase 85 U/L (15-37); Bilirubin,Total 0.9 mg/dL (0.00-1.00); Blood Urea Nitrogen 33 mg/dL (7-18); Calcium 8.2 mg/dL (8.5-10.1); Carbon Dioxide 21 mmol/L (21-32); Chloride 104 mmol/L (98-108); Cholesterol 190 mg/dL (0-200); Estimated Glomerular Filt Rate 38; Free T4 Free Thyroxine 0.97 ng/dL (0.76-1.46); Glucose 314 mg/dL (70-99); HDL Direct 36 mg/dL (40-60); LDL Cholesterol Calculated 119 mg/dL (<130); Osmolality Calculated 307 mOsm/kg (285-295); Potassium 4.6 mmol/L (3.5-5.1); Sodium 139 mmol/L (136-145); Triglycerides 174 mg/dL (0-150)
[2022-02-10 15:01] LABS: C-Peptide 1.57 ng/mL (0.80-3.85)
== END 2022-02-08 11:08 | disposition home or self-care (01) ==
PROVIDERS: PCP Internal Medicine; Visit Provider Internal Medicine Endocrinology, Diabetes & Metabolism
DX: R19.7 Diarrhea, unspecified (principal); I10 Essential (primary) hypertension; E11.65 Type 2 diabetes mellitus with hyperglycemia; E78.5 Hyperlipidemia, unspecified
CPT/HCPCS: 80053; 80061; 82043; 83036; 83735; 84439; 84443; 84681; 85025

== ENCOUNTER 2022-03-24 09:38 | Outpatient (NON) | payer OTHER, MEDICARE, SELFPAY ==
[2022-03-24 10:13] LABS: Hematocrit 41.2 % (35.0-42.0); Hemoglobin 13.5 g/dL (11.7-13.8); Mean Corpuscular HGB Conc 32.8 g/dL (32.0-36.0); Mean Corpuscular Hemoglobin 29.9 pg (27.0-31.0); Mean Corpuscular Volume 91.4 fL (78.0-102.0); Platelet Count Result 303 K/mm3 (150-420); Red Blood Count 4.51 M/mm3 (4.20-5.40); Red Cell Distribution Width 13.4 % (11.6-14.4); White Blood Count 12.6 K/mm3 (4.8-10.8)
[2022-03-24 10:23] LABS: Band Neutrophils Percent 1 % (0-6); Eosinophils Absolute Manual 0.12 K/mm3 (0.02-0.5); Eosinophils Percent Manual 1 % (1-6); Hemoglobin A1C 8.5 % (<5.7); Lymphocytes Absolute Manual 4.78 K/mm3 (1.1-4.5); Lymphocytes Percent Manual 38 % (18-44); Monocytes Percent Manual 4 % (3-9); Neutrophils Absolute Manual 7.18 K/mm3 (1.7-7.2); Neutrophils Percent Manual 56 % (46-73); Platelet Estimate Adequate (Adequate); Total Cells Counted 100
[2022-03-24 10:42] LABS: Alanine Aminotransferase 37 U/L (14-59); Albumin Level 3.6 g/dL (3.4-5.0); Alkaline Phosphatase 188 U/L (46-116); Anion Gap 12 mmol/L (8-16); Aspartate Amino Transferase 26 U/L (15-37); Bilirubin,Total 0.4 mg/dL (0.00-1.00); Blood Urea Nitrogen 29 mg/dL (7-18); Calcium 9.2 mg/dL (8.5-10.1); Carbon Dioxide 23 mmol/L (21-32); Chloride 103 mmol/L (98-108); Cholesterol 157 mg/dL (0-200); Estimated Glomerular Filt Rate 42; Free T4 Free Thyroxine 0.92 ng/dL (0.76-1.46); Glucose 100 mg/dL (70-99); HDL Direct 40 mg/dL (40-60); LDL Cholesterol Calculated 83 mg/dL (<130); Osmolality Calculated 291 mOsm/kg (285-295); Potassium 4.2 mmol/L (3.5-5.1); Sodium 138 mmol/L (136-145); Thyroid Stimulating Hormone 1.19 uIU/mL (0.36-3.74); Total Protein 7.1 g/dL (6.4-8.2); Triglycerides 170 mg/dL (0-150)
[2022-03-27 03:42] LABS: C-Peptide 0.57 ng/mL (0.80-3.85)
== END 2022-03-24 09:39 | disposition home or self-care (01) ==
LOC: CHSLAB 09:42
PROVIDERS: Visit Provider Internal Medicine Endocrinology, Diabetes & Metabolism
DX: E78.5 Hyperlipidemia, unspecified (principal); E11.65 Type 2 diabetes mellitus with hyperglycemia
CPT/HCPCS: 36415; 80053; 80061; 83036; 84439; 84443; 84681; 85025

== ENCOUNTER 2022-04-04 09:45 | Outpatient (CLI) | payer OTHER, SELFPAY ==
--- NOTE | ~2022-04-04 | XR_ITS ---
XR hip LT 2V w AP pelvis DATE: 04/04/2022 10:29 INDICATION: Posterior left hip pain for one week, increasing. No known injury. TECHNIQUE: AP pelvis. AP and lateral views of left hip. COMPARISON: None FINDINGS: There is osteopenia. There is prominent levoscoliosis and multilevel degenerative disc disease of the lumbar spine. Normal alignment at the pubic symphysis and sacroiliac joints. There is moderately severe bilateral hip osteoarthritis. No left hip fracture or dislocation, avascul ar necrosis or bone destruction is evident. IMPRESSION: Mildly severe bilateral hip osteoarthritis Levoscoliosis and multilevel degenerative disc disease of the lumbar spine Reviewed, dictated and finalized at location A.
== END 2022-04-04 09:46 | disposition home or self-care (01) ==
PROVIDERS: PCP Internal Medicine; Visit Provider Internal Medicine
DX: M25.552 Pain in left hip (principal); M16.0 Bilateral primary osteoarthritis of hip
CPT/HCPCS: 73502

== ENCOUNTER 2022-07-01 09:35 | Outpatient (NON) | payer OTHER, SELFPAY ==
[2022-07-01 09:51] LABS: Basophils Absolute Auto 0.12 K/mm3 (0.00-0.10); Basophils Percent Auto 1.4 % (0.0-1.0); Eosinophils Absolute Auto 0.31 K/mm3 (0.02-0.50); Eosinophils Percent Auto 3.5 % (1.0-6.0); Hematocrit 37.3 % (35.0-42.0); Immature Granulocyte Absolute 0.23 K/mm3 (0.00-0.00); Immature Granulocyte Percent A 2.6 % (0.0-0.0); Lymphocytes Absolute Auto 2.41 K/mm3 (1.10-4.50); Lymphocytes Percent Auto 27.4 % (18.0-42.0); Mean Corpuscular HGB Conc 32.2 g/dL (32.0-36.0); Mean Corpuscular Hemoglobin 28.1 pg (27.0-31.0); Mean Corpuscular Volume 87.4 fL (78.0-102.0); Monocytes Absolute Auto 0.86 K/mm3 (0.10-0.90); Monocytes Percent Auto 9.8 % (2.0-11.0); Neutrophils Absolute Auto 4.9 K/mm3 (1.7-7.2); Neutrophils Percent Auto 55.3 % (50.0-70.0); Platelet Count Result 291 K/mm3 (150-420); Red Blood Count 4.27 M/mm3 (4.20-5.40); Red Cell Distribution Width 14.1 % (11.6-14.4); White Blood Count 8.8 K/mm3 (4.8-10.8)
[2022-07-01 10:08] LABS: Hemoglobin A1C 8.6 % (<5.7)
[2022-07-01 10:23] LABS: Alanine Aminotransferase 26 U/L (14-59); Albumin Level 3.3 g/dL (3.4-5.0); Alkaline Phosphatase 179 U/L (46-116); Anion Gap 10 mmol/L (8-16); Aspartate Amino Transferase 21 U/L (15-37); Bilirubin,Total 0.6 mg/dL (0.00-1.00); Blood Urea Nitrogen 31 mg/dL (7-18); Calcium 8.9 mg/dL (8.5-10.1); Carbon Dioxide 28 mmol/L (21-32); Chloride 99 mmol/L (98-108); Estimated Glomerular Filt Rate 42; Glucose 119 mg/dL (70-99); Osmolality Calculated 291 mOsm/kg (285-295); Potassium 4.4 mmol/L (3.5-5.1); Sodium 137 mmol/L (136-145); Total Protein 6.7 g/dL (6.4-8.2)
== END 2022-07-01 09:36 | disposition home or self-care (01) ==
LOC: CHSLAB 09:37
PROVIDERS: Visit Provider Internal Medicine
DX: E11.65 Type 2 diabetes mellitus with hyperglycemia (principal); I10 Essential (primary) hypertension
CPT/HCPCS: 80053; 83036; 85025

== ENCOUNTER 2022-07-06 10:05 | Outpatient (CLI) | payer OTHER, SELFPAY ==
--- NOTE | ~2022-07-06 | DEXA_ITS ---
Bone Density Report Name: FLAKO STINSON Age: 87 Sex: Female Ethnicity: White Date of : 1935 Indication: postmenopausal; screening for osteoporosis; Referring Provider: Brandon Narvaez Study: Bone densitometry was performed. Exam Date: July 06, 2022 Accession number: [id number] Bone Density: Region BMD T-score Z-score Classification AP Spine(L1-L4) 1.296 2.3 5.1 Normal Femoral Neck (Left) 0.794 -0.5 2.0 Normal Total Hip (Left) 0.808 -1.1 1.2 Osteopenia Femoral Neck (Right) 0.750 -0.9 1.6 Normal Total Hip (Right) 0.855 -0.7 1.6 Normal Femoral Neck Mean 0.772 -0.7 1.8 Normal Total Hip Mean 0.832 -0.9 1.4 Normal World Health Organization criteria for BMD impression classify patients as: Normal (T-score at or above -1.0), Osteopenia (T-score between -1.0 and -2.5), or Osteoporosis (T-score at or below -2.5). 10-year Fracture Risk(1): Major Osteoporotic Fracture 11% Hip Fracture 2.6% Reported Risk Factors: [place] (), Neck BMD=0.750, BMI=25.0 (1) FRAX(R) Version 3.08. Fracture probability calculated for an untreated patient. Fracture probability may be lower if the patient has received treatment. Clinical Information Provided by Patient: Patient maximum height was 65 Menopause Age: 51 No regular weight bearing exercise Does not regularly consume dairy products Drinks caffeinated beverages Onset of menses at age 13 Number of children 3 Impression: The patient has low bone mass, based on the Left Total Hip T-score. Discussion: BONE DENSITY IS LOW AT ONE OR MORE SKELETAL SITES. This patient's lowest T-score is low at one or more skeletal sites. It meets the World Health Organization's (WHO) criteria for ?low bone mass? (T-score between -1.0 and -2.5). The patient's 10-year risk of fracture as calculated by FRAX is less than the threshold where pharmacological therapy is recommended by the National Osteoporosis Foundation (NOF). However, all treatment decisions require clinical judgment and consideration of individual patient factors, including patient preferences, comorbidities, previous drug use, risk factors not captured in the FRAX model (e.g., frailty, falls, vitamin D deficiency, increased bone turnover, interval significant decline in bone density) and possible under or overestimation of fracture risk by FRAX. The patient should follow a healthful lifestyle (good nutrition with adequate calcium and vitamin D, and appropriate weight-bearing exercise). Follow-Up: Consider repeating this study in 2 to 3 years to reassess this patient's status, or sooner if there is some new clinical indication. Reported by: Dr. Alejandro Perdomo on 07/06/2022 10:31:00 AM. Reviewed, dictated and finalized
== END 2022-07-06 10:06 | disposition home or self-care (01) ==
LOC: CHSIMG 10:06
PROVIDERS: PCP Family Medicine; Visit Provider Family Medicine
DX: Z78.0 Asymptomatic menopausal state (principal)
CPT/HCPCS: 77080

== ENCOUNTER 2022-07-28 07:50 | Emergency (ER) | payer OTHER, SELFPAY ==
--- NOTE | ~2022-07-28 | XR_ITS ---
EXAMINATION: XR chest 1V portable DATE: 07/28/2022 09:00 INDICATION: Confusion. TECHNIQUE: A single frontal view of the chest was obtained on 2 radiographs. COMPARISON: Chest single view 12/26/2021, CT abdomen and pelvis 12/26/2021 FINDINGS: The lung volumes are normal. There is a chronic interstitial pattern in the lungs with a lo wer lung predominance. No pleural effusion or pneumothorax. The heart is normal. Calcified left hilar and mediastinal lymph nodes are consistent with old adenomatous disease. There are surgical clips in the abdomen. IMPRESSION: 1. Stable mild chronic interstitial lung disease. Reviewed, dictated and finalized at location A.
--- NOTE | ~2022-07-28 | XR_ITS ---
EXAMINATION: XR lumbar spine 2-3V DATE: 07/28/2022 09:01 INDICATION: Chronic low back pain. TECHNIQUE: 3 views of lumbar spine were obtained. COMPARISON: Lumbar spine radiographs 03/16/2018, CT abdomen and pelvis 12/26/2021 FINDINGS: There is 13 degrees levoscoliosis of lumbar spine. There is 8 mm anterolisthesis of L4 on L 5. There is 3 mm retrolisthesis of L1 on L2 and L2 on L3. Vertebral body heights are normal. There is severely decreased disc height at L1-L2 and L2-L3 and moderately decreased disc height at L4-L5. The re are endplate osteophytes at all levels. 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 There are surgical clips in the abdomen. IMPRESSION: 1. Severe lumbar spondylosis. 2. Lumbar levoscoliosis. Reviewed, dictated and finalized at location A.
--- NOTE | ~2022-07-28 | CT_ITS ---
EXAMINATION: CT brain wo con DATE: 07/28/2022 09:00 INDICATION: Confusion. TECHNIQUE: Computed tomography (CT) of the head was performed without intravenous contrast. The mA wa s adjusted according to patient size. Iterative reconstruction technique was employed. The dose-lengt h product was 529.67 mGy-cm. COMPARISON: Head CT 11/15/2013 FINDINGS: There are scattered areas of low attenuation in the cerebral white matter. There is no intr acranial hemorrhage, acute infarction, or abnormal intracranial mass lesion. The ventricles are hardy l in size. The paranasal sinuses are clear. There is a small right mastoid effusion. There are likely changes of ocular lens replacement surgeries. IMPRESSION: 1. Worsened extensive nonspecific cerebral white matter disease, which likely represents chronic smal l vessel ischemic disease. Reviewed, dictated and finalized at location A. IMPRESSION: 1. Worsened extensive nonspecific cerebral white matter disease, which likely r epresents chronic small vessel ischemic disease.
--- NOTE | 2022-07-28 07:55 | ECG_ITS ---
Measurements Intervals [place] Rate: 68 P: 51 GA: 135 QRS: 9 QRSD: 98 T: 3 QT: 432 QTc: 461 Interpretive Statements SINUS RHYTHM MODERATE VOLTAGE CRITERIA FOR LVH, CONSIDER NORMAL VARIANT [MEETS CRITERIA IN ONE OF: R(aVL), S(V1), R(V5), R(V5/V6)+S(V1)] COMPARED TO ECG 12/26/2021 18:19:06 PATIENT IS NO LONGER TACHYCARDIC/NO OTHER SIGNIFICANT DIFFERENCE Electronically Signed On 07-29-2022 14:00:10 CDT by Obinna Houston M.D.
[2022-07-28 07:59] LABS: Glucose Point of Care 105 mg/dl (65-105)
[2022-07-28 08:01] VITALS: BP 182/71; PULSE 65; RESP 20; TEMP 36.7; O2SAT 100
[2022-07-28 08:33] LABS: Basophils Absolute Auto 0.09 K/mm3 (0.00-0.10); Basophils Percent Auto 0.6 % (0.0-1.0); Eosinophils Absolute Auto 0.03 K/mm3 (0.02-0.50); Eosinophils Percent Auto 0.2 % (1.0-6.0); Hematocrit 48.4 % (35.0-42.0); Hemoglobin 15.4 g/dL (11.7-13.8); Immature Granulocyte Absolute 0.27 K/mm3 (0.00-0.00); Immature Granulocyte Percent A 1.9 % (0.0-0.0); Lymphocytes Percent Auto 19.9 % (18.0-42.0); Mean Corpuscular HGB Conc 31.8 g/dL (32.0-36.0); Mean Corpuscular Hemoglobin 28.5 pg (27.0-31.0); Mean Corpuscular Volume 89.6 fL (78.0-102.0); Mean Platelet Volume 9.6 fl (9.2-11.8); Monocytes Absolute Auto 0.74 K/mm3 (0.10-0.90); Monocytes Percent Auto 5.2 % (2.0-11.0); Neutrophils Absolute Auto 10.2 K/mm3 (1.7-7.2); Neutrophils Percent Auto 72.2 % (50.0-70.0); Platelet Count Result 294 K/mm3 (150-420); Red Cell Distribution Width 14.4 % (11.6-14.4); White Blood Count 14.1 K/mm3 (4.8-10.8)
[2022-07-28 08:35] LABS: Add Urine Microscopic? YES; Appearance Urine Clear (Clear); Bilirubin Urine Negative (Negative); Blood Urine Negative (Negative); Color Urine Yellow (Yellow); Glucose Urine UA 2+ (Negative); Ketones Urine Negative (Negative); Leukocyte Esterase Ur Negative (Negative); Nitrate Urine Negative (Negative); Protein Urine 2+ (Negative); Specific Grav Ur >= 1.030 (1.010-1.020); Urobilinogen Urine 0.2 mg/dL (0.2-1.0)
[2022-07-28 08:47] LABS: Bacteria Urine Trace /hpf; RBC Urine None seen /hpf (0-2); WBC Urine None seen /hpf (0-3)
[2022-07-28 08:52] LABS: Alanine Aminotransferase 50 U/L (14-59); Albumin Level 3.5 g/dL (3.4-5.0); Alkaline Phosphatase 171 U/L (46-116); Anion Gap 9 mmol/L (8-16); Aspartate Amino Transferase 46 U/L (15-37); Bilirubin,Total 0.5 mg/dL (0.00-1.00); Blood Urea Nitrogen 35 mg/dL (7-18); Calcium 9.3 mg/dL (8.5-10.1); Carbon Dioxide 27 mmol/L (21-32); Chloride 100 mmol/L (98-108); Estimated CRCL calculation 27 ml/min; Estimated Glomerular Filt Rate 42; Glucose 197 mg/dL (70-99); Osmolality Calculated 295 mOsm/kg (285-295); Potassium 4.4 mmol/L (3.5-5.1); Sodium 136 mmol/L (136-145); Total Protein 7.9 g/dL (6.4-8.2)
[2022-07-28 08:54] LABS: CRP 1.6 mg/dL (0.0-0.9)
[2022-07-28 08:56] LABS: Lactic Acid Reflex 2.2 mmol/L (0.4-2.0)
[2022-07-28] MEDS: SODIUM CHLORIDE 0.9% IV 500 ML 999 ML IV CONT (09:08)
--- NOTE | 2022-07-28 09:12 | ED.AMS ---
HPI - Altered Mental Status General Chief Complaint: Altered Mental Status Stated Complaint: amb Time Seen by Provider: 07/28/22 07:52 Source: patient and EMS Mode of arrival: EMS Limitations: altered mental status History of Present Illness HPI narrative: this is an 87-year-old senior living patient presents with some hypoglycemic episode which led to altered mental status / confusion is currently during assessment back to her baseline alert and oriented. The patient is diabetic and on insulin and typically has blood glucose readings in the 120s and 130s and this morning senior living staff found that her blood sugar reading was in the 70s and became confused. The patient did received glucose and route via EMS currently back to her baseline with no fever chills no shortness of breath no chest pain no abdominal pain no diarrhea constipation. The patient does complain of some pain in her lumbar spinal area in her lower back with no dysuria no hematuria no nausea vomiting no diarrhea or constipation. complaint: altered mental status Onset (ago): hour(s) Timing confirmed by: caregiver Severity: mild Context: diabetes Associated symptoms: denies other symptoms Treatments prior to arrival: glucose Related Data Home Medications Medication Instructions Recorded Confirmed amlodipine 5 mg tablet 5 mg PO DAILY 07/28/22 07/28/22 lisinopril 20 1 tablet PO DAILY 07/28/22 07/28/22 mg-hydrochlorothiazide 12.5 mg tablet propranolol 120 mg capsule,24 120 mg PO DAILY 07/28/22 07/28/22 hr,extended release Allergies Allergy/AdvReac Type Severity Reaction Status Date / Time No Known Allergies Allergy Verified 07/28/22 08:20 Review of Systems Review of Systems: All systems reviewed & are unremarkable except as noted in HPI and below PMFSH Past Medical History Medical History Chronic kidney disease Diabetes mellitus Diverticulitis of colon with perforation Gastroenteritis Insulin dependent diabetes mellitus Surgical History Surgical History History of abdominal surgery Panniculectomy History of appendectomy History of colon resection had a colon resection with colostomy due to perforated diverticulitis History of colostomy reversal Colostomy reversal about 4 months after her colon resection History of gastric stapling History of partial hysterectomy Family History Family History Mother Family history of arthritis Family history of malignant neoplasm of breast in first degree relative Social History Social History Smoking status: Never smoker Alcohol intake: never Substance use: never Additional living arrangements comments: [facility] Independent in ADL's, walks with walker Gender identity (if verbalized by the patient): Female Spiritual care concerns: No Exam Const: General: healthy appearing, no acute distress and alert Limitations: no limitations HENMT: Head: normal to inspection Face/Nose/Sinus: Normal external nose present Mouth: Yes Normal oral and palatal mucosa present Eyes: Conjunctivae: conjunctivae normal EOM: EOMs intact bilaterally Neck: Neck: normal visual inspection, no lymphadenopathy and no meningeal signs Chest: Chest palpation & inspection: normal inspection of the chest Resp: Effort & Inspection: normal respiratory effort Auscultation: clear to auscultation bilaterally Cardio: Rate: regular rate Rhythm: regular rhythm GI: GI Palp: Yes Soft to palpation Skin: General skin exam: normal color Rashes: no rashes Wounds: no wounds Neuro: General: moves all extremities and no meningeal signs Cranial nerves: Yes Nystagmus not present Speech: normal speech Extrem: General: normal to inspection and no clubbing, cyanosis
[2022-07-28 10:02] VITALS: BP 119/41; PULSE 75; RESP 20; TEMP 36.7; O2SAT 95
[2022-07-28 10:30] VITALS: PULSE 75; RESP 20; O2SAT 95
[2022-07-28 11:30] LABS: Reflex Lactic Acid Yes or No Add Lactic
--- NOTE | 2022-08-03 12:18 | PC.NURSE ---
FINAL BLOOD CULTURE RESULTS X2 NO GROWTH AFTER 5 DAYS
== END 2022-07-28 10:30 ==
PROVIDERS: Emergency Provider Emergency Medicine; PCP Family Medicine
DX: E11.649 Type 2 diabetes mellitus with hypoglycemia without coma (principal); N18.9 Chronic kidney disease, unspecified; E11.9 Type 2 diabetes mellitus without complications
CPT/HCPCS: 36415; 70450; 71045; 72100; 80053; 81001; 82948; 83605; 85025; 86140; 87040; 93005; 96360; 99284; J7040

== ENCOUNTER 2022-07-29 07:00 | Emergency (ER) | payer OTHER, SELFPAY ==
--- NOTE | ~2022-07-29 | XR_ITS ---
EXAMINATION: XR chest 1V portable INDICATION: Transient alteration of awareness TECHNIQUE: Portable AP chest at 0757 hours COMPARISON: 07/28/2022 FINDINGS: The lungs are free of acute opacities. A chronic interstitial pattern is noted in the lungs without significant change, consistent with chronic interstitial lung disease. No pleural effusion o r pneumothorax. The heart size is normal. Calcified pulmonary nodules and calcified left hilar and me diastinal lymph nodes are consistent with old granulomatous disease. There is advanced osteoarthritis of the shoulders. Surgical clips are noted in the abdomen. IMPRESSION: 1. No acute cardiopulmonary abnormality. Reviewed, dictated and finalized at location A.
--- NOTE | ~2022-07-29 | CT_ITS ---
EXAMINATION: CT brain wo con DATE: 07/29/2022 08:52 INDICATION: Transient alteration of awareness. Syncope. TECHNIQUE: Computed tomography (CT) of the head was performed without intravenous contrast. The mA wa s adjusted according to patient size. Iterative reconstruction technique was employed. The dose-lengt h product was 605.33 mGy-cm. COMPARISON: Head CT 07/28/2022 FINDINGS: There are scattered areas of low attenuation in the cerebral white matter. There is no intr acranial hemorrhage, acute infarction, or abnormal intracranial mass lesion. The ventricles are hardy l in size. There are likely changes of ocular lens replacement surgeries. There is mild mucosal thick ening in the ethmoid sinuses. There is a right mastoid effusion. IMPRESSION: 1. Stable extensive nonspecific cerebral white matter disease, which likely represents chronic small vessel ischemic disease. Reviewed, dictated and finalized at location D. IMPRESSION: 1. Stable extensive nonspecific cerebral white matter disease, which likely rep resents chronic small vessel ischemic disease.
[2022-07-29 07:00] VITALS: BP 163/85; PULSE 78; RESP 20; TEMP 36.4; O2SAT 99
--- NOTE | 2022-07-29 07:30 | ECG_ITS ---
Measurements Intervals [place] Rate: 63 P: 58 GA: 134 QRS: 18 QRSD: 81 T: 11 QT: 417 QTc: 427 Interpretive Statements SINUS RHYTHM WITH OCCASIONAL VENTRICULAR PREMATURE COMPLEXES LOW QRS VOLTAGE IN PRECORDIAL LEADS [QRS DEFLECTION < 1.0 mV IN CHEST LEADS] NONSPECIFIC T-WAVE ABNORMALITY ABNORMAL ECG COMPARED TO ECG 07/28/2022 08:05:13 NO SIGNIFICANT CHANGES Electronically Signed On 07-29-2022 14:01:47 CDT by Obinna Houston M.D.
[2022-07-29 07:48] LABS: Basophils Absolute Auto 0.06 K/mm3 (0.00-0.10); Basophils Percent Auto 0.6 % (0.0-1.0); Eosinophils Percent Auto 0.9 % (1.0-6.0); Hematocrit 47.9 % (35.0-42.0); Hemoglobin 15.1 g/dL (11.7-13.8); Immature Granulocyte Absolute 0.13 K/mm3 (0.00-0.00); Immature Granulocyte Percent A 1.2 % (0.0-0.0); Lymphocytes Absolute Auto 2.67 K/mm3 (1.10-4.50); Lymphocytes Percent Auto 24.8 % (18.0-42.0); Mean Corpuscular HGB Conc 31.5 g/dL (32.0-36.0); Mean Corpuscular Volume 88.9 fL (78.0-102.0); Mean Platelet Volume 9.4 fl (9.2-11.8); Monocytes Absolute Auto 0.73 K/mm3 (0.10-0.90); Monocytes Percent Auto 6.8 % (2.0-11.0); Neutrophils Absolute Auto 7.1 K/mm3 (1.7-7.2); Neutrophils Percent Auto 65.7 % (50.0-70.0); Platelet Count Result 334 K/mm3 (150-420); Red Blood Count 5.39 M/mm3 (4.20-5.40); Red Cell Distribution Width 14.5 % (11.6-14.4); White Blood Count 10.8 K/mm3 (4.8-10.8)
[2022-07-29 08:02] LABS: Alanine Aminotransferase 52 U/L (14-59); Albumin Level 3.5 g/dL (3.4-5.0); Alkaline Phosphatase 162 U/L (46-116); Anion Gap 8 mmol/L (8-16); Aspartate Amino Transferase 48 U/L (15-37); Bilirubin,Total 0.5 mg/dL (0.00-1.00); Blood Urea Nitrogen 29 mg/dL (7-18); Calcium 9.1 mg/dL (8.5-10.1); Carbon Dioxide 30 mmol/L (21-32); Chloride 97 mmol/L (98-108); Estimated Glomerular Filt Rate 40; Glucose 238 mg/dL (70-99); Osmolality Calculated 293 mOsm/kg (285-295); Potassium 4.1 mmol/L (3.5-5.1); Sodium 135 mmol/L (136-145); Total Protein 7.7 g/dL (6.4-8.2)
[2022-07-29 08:39] LABS: Ethanol < 3 mg/dL (0-6)
--- NOTE | 2022-07-29 08:40 | PC.NURSE ---
pt to xray for head ct per stretcher at this time
--- NOTE | 2022-07-29 08:41 | PC.NURSE ---
breakfast tray provided, pt able to feed self, family in room with pt.
[2022-07-29 08:42] LABS: Amphetamine Screen Urine Negative (Negative); Barbiturate Screen Urine Negative (Negative); Benzodiazepines Screen Urine Negative (Negative); Cannabinoid Screen Urine Negative (Negative); Cocaine Screen Urine Negative (Negative); Methadone Screen Urine Negative (Negative); Opiate Screen Urine Negative (Negative); Phencyclidine Screen Urine Negative (Negative)
--- NOTE | 2022-07-29 08:52 | PC.NURSE ---
pt returned from ct. alert and oriented. daughter napoleon in room with pt. accu check redone, reported to dr boyer. pt ate 50% breakfast tray.
[2022-07-29 08:53] LABS: Glucose Point of Care 213 mg/dl (65-105)
--- NOTE | 2022-07-29 09:23 | PC.NURSE ---
[address] chappell, informed pt return to er for hypoglycemia for 2nd day in a row. new orders received and read back for clarification. discussed with carolyn mendoza notified and given copy of medication changes. [facility]
--- NOTE | 2022-07-29 09:45 | ED.GENADULT ---
HPI - General Adult General Chief complaint: Unspecified Stated complaint: amb Time Seen by Provider: 07/29/22 08:03 Source: patient, EMS and RN notes reviewed Mode of arrival: EMS Limitations: no limitations History of Present Illness MD complaint: pt was not conscious in bed with blood glucose 35. no acute fall, similar Onset (ago): hour(s) (2) Location: head Radiation: non-radiation Severity: similar to prior episodes (pain-free) Relieving factors: none Exacerbating factors: none Related Data Home Medications Medication Instructions Recorded Confirmed amlodipine 5 mg tablet 5 mg PO DAILY 07/28/22 07/29/22 insulin aspar prot-insulin aspart 40 unit subcut QAM 07/28/22 07/29/22 100 unit/mL (70-30) subcutaneous pen (Novolog Mix 70-30FlexPen U-100) insulin aspar prot-insulin aspart 70 unit subcut HS 07/28/22 07/29/22 100 unit/mL (70-30) subcutaneous pen (Novolog Mix 70-30FlexPen U-100) lisinopril 20 1 tablet PO DAILY 07/28/22 07/29/22 mg-hydrochlorothiazide 12.5 mg tablet propranolol 120 mg capsule,24 120 mg PO DAILY 07/28/22 07/29/22 hr,extended release empagliflozin 25 mg tablet 25 mg PO DAILY 07/29/22 07/29/22 (Jardiance) Allergies Allergy/AdvReac Type Severity Reaction Status Date / Time No Known Allergies Allergy Verified 07/28/22 08:20 Review of Systems Review of Systems: All systems reviewed & are unremarkable except as noted in HPI and below Constitutional: Constitutional: Reports no additional constitutional complaints Eyes: Eyes: Reports no additional eye complaints ENT: Reports system reviewed and no additional complaints, except as documented Cardiovascular: Cardiovascular: Reports no additional cardiovascular complaints Respiratory: Respiratory: Reports no additional respiratory complaints Gastrointestinal: Gastrointestinal: Reports no additional gastrointestinal complaints Genitourinary: Genitourinary: Reports no additional female genitourinary complaints Musculoskeletal: Musculoskeletal: Reports no additional musculoskeletal complaints Integumentary/Breasts: Skin/Breast: Reports system reviewed and no additional complaints, except as docu Neurologic: Reports system reviewed and no additional complaints, except as documented and Reports other (pt was unconscious in bed.) Psychiatric: Psychiatric: Reports no additional psychiatric complaints Endocrine: Endocrine: Reports no additional endocrine complaints Hematologic/Lymphatic: Hematologic/Lymphatic: Reports no additional hematologic/lymphatic complaints Allergic/Immunologic: Allergic/Immunologic: Reports no additional allergic/immunologic complaints [facility] Past Medical History Medical History Chronic kidney disease Diabetes mellitus Diverticulitis of colon with perforation Gastroenteritis Hypoglycemia associated with type 2 diabetes mellitus Insulin dependent diabetes mellitus Surgical History Surgical History History of abdominal surgery Panniculectomy History of appendectomy History of colon resection had a colon resection with colostomy due to perforated diverticulitis History of colostomy reversal Colostomy reversal about 4 months after her colon resection History of gastric stapling History of partial hysterectomy Family History Family History Mother Family history of arthritis Family history of malignant neoplasm of breast in first degree relative Social History Social History Smoking status: Never smoker Alcohol intake: never Substance use: never Additional living arrangements comments: [facility] Independent in ADL's, walks with walker Gender identity (if verbalized by the patient): Female Spiritual care concerns: No Exam
[2022-07-29 09:50] LABS: Glucose Point of Care 199 mg/dl (65-105)
[2022-07-29 09:55] VITALS: BP 93/72; PULSE 69; RESP 18; TEMP 36.6; O2SAT 97
--- NOTE | 2022-07-29 10:03 | PC.NURSE ---
update to shreya wheel[facility], notified of new orders for medications. voiced understanding.
[2022-07-29 10:21] LABS: Appearance Urine Clear (Clear); Bilirubin Urine Negative (Negative); Blood Urine Negative (Negative); Glucose Urine UA 2+ (Negative); Ketones Urine Negative (Negative); Leukocyte Esterase Ur Negative LEU/UL (Negative); Nitrate Urine Negative (Negative); Protein Urine Trace (Negative); Specific Grav Ur 1.015 (1.010-1.020); Urobilinogen Urine 0.2 mg/dL (0.2-1.0)
[2022-07-29 10:25] LABS: Add Urine Microscopic? YES; Bacteria Urine None seen /hpf; Color Urine Light Yellow (Yellow); RBC Urine None seen /hpf (0-2); WBC Urine None seen /hpf (0-3)
[2022-08-18 08:15] LABS: Glucose Point of Care 214 mg/dl (65-105)
== END 2022-07-29 10:12 ==
PROVIDERS: Emergency Provider Emergency Medicine; PCP Family Medicine
DX: E11.649 Type 2 diabetes mellitus with hypoglycemia without coma (principal); N18.9 Chronic kidney disease, unspecified; Z79.4 Long term (current) use of insulin; Z79.899 Other long term (current) drug therapy
CPT/HCPCS: 36415; 70450; 71045; 80053; 80307; 81001; 82948; 85025; 93005; 99284

== ENCOUNTER 2022-08-30 11:04 | Outpatient (NON) | payer OTHER, MEDICARE, SELFPAY ==
[2022-08-30 11:29] LABS: Add Urine Microscopic? YES; Appearance Urine Clear (Clear); Bilirubin Urine Negative (Negative); Blood Urine 2+ (Negative); Color Urine Yellow (Yellow); Glucose Urine UA 2+ (Negative); Ketones Urine Negative (Negative); Leukocyte Esterase Ur Negative LEU/UL (Negative); Nitrate Urine Negative (Negative); Protein Urine Negative (Negative); Specific Grav Ur 1.025 (1.010-1.020); Urobilinogen Urine 0.2 mg/dL (0.2-1.0)
[2022-08-30 11:35] LABS: Bacteria Urine 1+ /hpf; Squamous Epithelial Cell Urine Few /hpf (Few); WBC Urine None seen /hpf (0-3)
== END 2022-08-30 11:05 | disposition home or self-care (01) ==
LOC: CHSLAB 11:07
PROVIDERS: Visit Provider Family Medicine
DX: R30.0 Dysuria (principal)
CPT/HCPCS: 81001

== ENCOUNTER 2022-09-14 12:22 | Outpatient (CLI) | payer OTHER, MEDICARE, SELFPAY ==
[2022-09-14 12:35] LABS: Hematocrit 42.5 % (35.0-42.0); Hemoglobin 13.7 g/dL (11.7-13.8); Mean Corpuscular HGB Conc 32.2 g/dL (32.0-36.0); Mean Corpuscular Hemoglobin 28.4 pg (27.0-31.0); Mean Platelet Volume 9.4 fl (9.2-11.8); Platelet Count Result 310 K/mm3 (150-420); Red Blood Count 4.83 M/mm3 (4.20-5.40); Red Cell Distribution Width 13.4 % (11.6-14.4); White Blood Count 11.5 K/mm3 (4.8-10.8)
--- NOTE | 2022-09-14 12:41 | ECG_ITS ---
Measurements Intervals [place] Rate: 129 P: SD: 0 QRS: 31 QRSD: 80 T: 56 QT: 305 QTc: 448 Interpretive Statements MULTIFOCAL ATRIAL TACHYCARDIA VENTRICULAR PREMATURE COMPLEX AND FREQUENT ATRIAL PREMATURE COMPLEXES LOW QRS VOLTAGE IN PRECORDIAL LEADS BORDERLINE R WAVE PROGRESSION, ANTERIOR LEADS ABNORMAL ECG COMPARED TO ECG 07/29/2022 07:59:13 MULTIFOCAL ATRIAL TACHYCARDIA NOW PRESENT VENTRICULAR PREMATURE COMPLEX AND FREQUENT ATRIAL PREMATURE COMPLEXES NOW PRESENT Electronically Signed On 09-14-2022 15:36:06 WOOD GRINDER by Sanjay Ha D.O.
[2022-09-14 12:43] LABS: Appearance Urine Cloudy (Clear); Bilirubin Urine Negative (Negative); Blood Urine Negative (Negative); Glucose Urine UA Negative (Negative); Ketones Urine Trace (Negative); Leukocyte Esterase Ur 2+ (Negative); Nitrate Urine Negative (Negative); Protein Urine Trace (Negative); Specific Grav Ur >= 1.030 (1.010-1.020); Urobilinogen Urine 0.2 mg/dL (0.2-1.0)
[2022-09-14 13:13] LABS: Alanine Aminotransferase 27 U/L (14-59); Albumin Level 3.6 g/dL (3.4-5.0); Alkaline Phosphatase 148 U/L (46-116); Anion Gap 10 mmol/L (8-16); Aspartate Amino Transferase 25 U/L (15-37); Bilirubin,Total 0.5 mg/dL (0.00-1.00); Blood Urea Nitrogen 29 mg/dL (7-18); Calcium 8.6 mg/dL (8.5-10.1); Carbon Dioxide 29 mmol/L (21-32); Chloride 102 mmol/L (98-108); Estimated Glomerular Filt Rate 36; Glucose 95 mg/dL (70-99); Osmolality Calculated 297 mOsm/kg (285-295); Potassium 3.6 mmol/L (3.5-5.1); Sodium 141 mmol/L (136-145); Total Protein 6.9 g/dL (6.4-8.2)
[2022-09-14 13:14] LABS: Thyroid Stimulating Hormone Reflex 1.14 u/IU/mL (0.36-3.74)
[2022-09-14 13:17] LABS: Add Urine Microscopic? YES; Color Urine Light Yellow (Yellow); RBC Urine None seen /hpf (0-2)
[2022-09-14 13:18] LABS: Bacteria Urine 3+ /hpf; Squamous Epithelial Cell Urine Many /hpf (Few)
== END 2022-09-14 12:23 | disposition home or self-care (01) ==
LOC: CHSLAB 12:25
PROVIDERS: PCP Family Medicine; Visit Provider Family Medicine
DX: R42 Dizziness and giddiness (principal); E11.9 Type 2 diabetes mellitus without complications; B37.31 Acute candidiasis of vulva and vagina
CPT/HCPCS: 36415; 80053; 81001; 84443; 85027; 93005

== ENCOUNTER 2022-09-14 13:01 | Emergency (ER) | payer OTHER, MEDICARE, SELFPAY ==
[2022-09-14] VITALS (16 sets, daily range): BP systolic 108–159; BP diastolic 59–95; PULSE 104–180; RESP 16–22; TEMP 36.5–36.6; O2SAT 97–99
--- NOTE | ~2022-09-14 | CT_ITS ---
EXAMINATION: CTA chest PE protocol DATE: 09/14/2022 14:53 INDICATION: tachycardia, elevated d-dimer TECHNIQUE: Computed tomography angiography (CTA) of the chest was performed with 100 mL Omnipaque-350 intravenous contrast timed to evaluate the pulmonary arteries. Coronal maximum intensity projection 3D-reconstructions were created by the technologist. The dose-length product (DLP) was 285.18 mGy-cm. Automated exposure control and iterative reconstruction technique were employed. COMPARISON: X-ray chest 07/29/2022. FINDINGS: Lung parenchyma and airways: Senescent and/or chronic interstitial changes. Peripheral granulomas. Pleura: Unremarkable. Thoracic inlet, axillae and chest wall: Unremarkable. Thoracic aorta: Moderate atherosclerotic calcification. Mediastinum: Normal. Heart and pericardium: Normal. Coronary artery calcifications: Heavy. Upper abdomen: No significant finding. Bones: No acute osseous finding. Pulmonary arteries: Study quality: Mild respiratory motion artifact and beam hardening artifact from the contrast bolus, overall adequate. No pulmonary emboli detected. IMPRESSION: No CT evidence of acute pulmonary embolus. Reviewed, dictated and finalized at location K. /MOSAIC TECHNICIAN
[2022-09-14] MEDS: dilTIAZem HCl INJ 25 MG/5 ML VIAL 10 MG IV PUSH (13:22)
--- NOTE | 2022-09-14 13:32 | ED.ARRPALP ---
HPI - Arrhythmia/Palpitations General Chief Complaint: Unspecified Stated Complaint: abd EKG Time Seen by Provider: 09/14/22 13:17 Source: patient History of Present Illness HPI narrative: 87-year-old female history of, diabetes mellitus CKD, perforated colon status post surgery, status post hysterectomy, presented to the ER in the recent month for hypoglycemic episodes. She has also complained of dizziness for which she presented to her primary care physician. Today she went to her primary care physician for -- dysuria and difficulty urination -- low back pain status post back surgery she was advised EKG and blood work. Which she got her EKG she was noted to atrial fibrillation with a rapid ventricular rate of 129. The patient does not have a prior history of atrial fibrillation. The patient was sent to the ER for further management. The patient presents with -- anxiety with tremulousness -- no chest pain or palpitation -- shortness of breath with hypoxia Severity: moderate Context: occurred during rest Arrhythmia history: other ( no prior history of arrhythmias) Associated symptoms: shortness of breath Related Data Home Medications Medication Instructions Recorded Confirmed lisinopril 20 1 tablet PO DAILY 07/28/22 09/14/22 mg-hydrochlorothiazide 12.5 mg tablet Allergies Allergy/AdvReac Type Severity Reaction Status Date / Time No Known Allergies Allergy Verified 09/14/22 14:08 Review of Systems Review of Systems: All systems reviewed & are unremarkable except as noted in HPI and below Constitutional: Constitutional: Reports as per HPI and Reports no additional constitutional complaints Eyes: Eyes: Reports as per HPI and Reports no additional eye complaints ENT: Reports system reviewed and no additional complaints, except as documented and Reports as per HPI Cardiovascular: Cardiovascular: Reports as per HPI and Reports no additional cardiovascular complaints Respiratory: Respiratory: Reports as per HPI, Reports no additional respiratory complaints and Reports dyspnea Gastrointestinal: Gastrointestinal: Reports as per HPI and Reports no additional gastrointestinal complaints Genitourinary: Genitourinary: Reports no additional female genitourinary complaints and Reports dysuria Musculoskeletal: Musculoskeletal: Reports no additional musculoskeletal complaints, Reports as per HPI and Reports back pain Integumentary/Breasts: Skin/Breast: Reports system reviewed and no additional complaints, except as docu and Reports as per HPI Neurologic: Reports system reviewed and no additional complaints, except as documented and Reports as per HPI Psychiatric: Psychiatric: Reports no additional psychiatric complaints, Reports as per HPI and Reports anxiety Endocrine: Endocrine: Reports no additional endocrine complaints and Reports as per HPI Hematologic/Lymphatic: Hematologic/Lymphatic: Reports no additional hematologic/lymphatic complaints and Reports as per HPI Allergic/Immunologic: Allergic/Immunologic: Reports no additional allergic/immunologic complaints and Reports as per HPI [facility] Past Medical History Medical History Chronic kidney disease Diabetes mellitus Diverticulitis of colon with perforation Gastroenteritis Hypoglycemia associated with type 2 diabetes mellitus Insulin dependent diabetes mellitus Surgical History Surgical History History of abdominal surgery Panniculectomy History of appendectomy History of colon resection had a colon resection with colostomy due to perforated diverticulitis History of colostomy reversal Colostomy reversal about 4 months after her colon resection History of gastric stapling History of partial hysterectomy Family History Family History Mother Family history of arthritis
[2022-09-14 14:10] LABS: D Dimer 1.96 mg/L (0.19-0.50)
[2022-09-14] MEDS: dilTIAZem 100 MG/100 ML 100 MG/100 ML BAG IV CONT (14:23)
[2022-09-14 14:25] LABS: Troponin I 9.5 ng/L (0.00-60.4)
[2022-09-14 14:50] LABS: NT Pro B Type Natriuretic Pept 358 pg/mL (0-450)
[2022-09-14] MEDS: SULFAMETHOXAZOLE/TRIMETHOPRIM 800/160 MG DS TABLET 1 TAB PO (15:54)
--- NOTE | 2022-09-14 17:24 | PC.NURSE ---
Addendum entered by Trisha Lujan RN 09/14/22 17:37: at 1730 it was noted that the elevated magnesium level for this patient was from a draw in January. erp notified. [facility]. [facility] notified of miss-read. Addendum entered by Trisha Lujan RN 09/14/22 17:37: at Original Note: lab results reviewed by erp, magnesium iv requested. order received.
[2022-09-14 18:54] LABS: Glucose Point of Care 105 mg/dl (65-105)
== END 2022-09-14 17:34 | disposition short-term general hospital (02) ==
PROVIDERS: Emergency Provider Internal Medicine Critical Care Medicine; PCP Family Medicine
DX: I48.20 Chronic atrial fibrillation, unspecified (principal); N18.30 Chronic kidney disease, stage 3 unspecified; N39.0 Urinary tract infection, site not specified; E11.9 Type 2 diabetes mellitus without complications; Z79.4 Long term (current) use of insulin; R06.02 Shortness of breath
CPT/HCPCS: 36415; 36600; 71275; 82948; 83880; 84484; 85380; 96365; 96366; 96376; 99285; A9270; Q9967

== ENCOUNTER 2022-09-14 18:47 | Observation (INO) | payer OTHER, MEDICARE, SELFPAY ==
[2022-09-14 18:39] VITALS: BP 147/95; PULSE 80; RESP 20; TEMP 36.4; O2SAT 95
--- NOTE | 2022-09-14 18:49 | ECG_ITS ---
Measurements Intervals [place] Rate: 93 P: CT: 0 QRS: -17 QRSD: 77 T: 8 QT: 357 QTc: 445 Interpretive Statements ECTOPIC ATRIAL RHTHM OR WANDERING PACEMAKER ATRIAL TRIPLET AND PREMATURE COMPLEXES DELAYED PRECORDIAL R/S TRANSITION LOW QRS VOLTAGE IN PRECORDIAL LEADS NONSPECIFIC T-WAVE ABNORMALITY- INFERIOR LEADS BASELINE ARTIFACT- I, II, III, AVR, AVL, AVF, V2-V6 ABNORMAL ECG COMPARED TO ECG 09/14/2022 12:54:23 ECTOPIC ATRIAL RHYTHM OR WANDERING PACEMAKER T-WAVE ABNORMALITY NOW PRESENT Electronically Signed On 09-15-2022 8:33:28 NATURAL RESOURCES MANAGER by Sanjay Ha D.O.
--- NOTE | 2022-09-14 19:00 | PM.IMHP ---
H&P: HPI History of Present Illness Date/Time: 09/14/22 18:30 Chief Complaint: Atrial fibrillation with rapid ventricular response. Narrative: This is an 87-year-old with insulin-dependent diabetes and hypertension who is being directly admitted to the IMU from [facility] emergency department for treatment and evaluation of atrial fibrillation with rapid ventricular response. She was started on Jardiance a couple of months ago and she has had several episodes of hypoglycemia prompting a trip to the ER. Also since starting that drug she has not had a great appetite and she estimates that she has lost about 20 pounds since that time. The Jardiance has since been discontinued. Over the last several weeks she has been having episodes of lightheadedness and dizziness, as though she may fall or pass out. She saw her doctor on 09/02/2022 at which time her propranolol was abruptly discontinued due to her symptoms. Despite stopping the propranolol, she has continued to have episodes of weakness, lightheadedness, and dizziness and she was seen by her doctor again today for evaluation. EKG done in office reportedly showed atrial fibrillation with rapid ventricular response and she was started on a Cardizem up in the emergency room at the outside facility prior to initiation of transfer to [place]. With further questioning she has also had sensations of racing heart and shortness of breath with minimal exertion over the past couple of weeks, which seems to correlate with about the time that her propranolol was discontinued. She has no known history of cardiac dysrhythmia or coronary artery disease. She also denies chest pain and discomfort, pleuritic pain, orthopnea, paroxysmal nocturnal dyspnea, and lower extremity edema. She has had a decrease in appetite with some nausea but no vomiting or diarrhea. Review of Systems Review of Systems: Twelve systems were reviewed. No fever, chills, or sweats. No recent cold or flu symptoms. Blood sugars have once againg been running in the 200 since stopping Jardiance. Except as documented, all other systems were reviewed and are negative. [facility] Past Medical History Medical History (Updated 09/14/22 @ 22:40 by Celi Ambriz PA-C) Chronic kidney disease, stage 3 Diabetic peripheral neuropathy Diverticulitis of colon with perforation Fuchs' corneal dystrophy Gastroenteritis Insulin dependent diabetes mellitus Surgical History Surgical History (Updated 09/14/22 @ 18:52 by Celi Abmriz PA-C) History of abdominal surgery Panniculectomy History of appendectomy History of bilateral knee replacement History of colon resection had a colon resection with colostomy and subsequent reversal due to perforated diverticulitis. History of colostomy reversal Colostomy reversal about 4 months after her colon resection History of corneal transplant History of gastric stapling History of partial hysterectomy Family History Family History Mother Family history of arthritis Family history of malignant neoplasm of breast in first degree relative Social History Social History (Updated 09/14/22 @ 18:52 by Celi Ambriz PA-C) Social History: Healthcare power of research attorney: Shey Kirk, daughter. Code status: Do not resuscitate. Smoking status: Never smoker Alcohol intake: never Substance use: never Lack of Transportation: No Lack of Food: Never True Current Housing: I Have Housing Concerned About Future Housing: No Difficulty Paying Gas/Electric Bills: No Difficulty Paying for Meds: No Currently Unemployed: No Education: High School Diploma/GED Difficulty w/ Childcare or Family Care: No Additional living arrangements comments: [facility]. Independent in ADL's, walks with walker. Spiritual care concerns: No Meds Home Medications and Allergies Home Medications
[2022-09-14 19:20] VITALS: BMI 22.8
[2022-09-14 19:32] LABS: Anion Gap 10 mmol/L (8-16); Blood Urea Nitrogen 28 mg/dL (7-17); Calcium 8.7 mg/dL (8.4-10.2); Carbon Dioxide 25 mmol/L (22-30); Chloride 100 mmol/L (98-107); Estimated CRCL calculation 32 ml/min; Estimated Glomerular Filt Rate 53; Glucose 97 mg/dL (65-110); Magnesium 1.1 mg/dL (1.6-2.3); Potassium 3.4 mmol/L (3.4-5.0); Sodium 135 mmol/L (137-145)
[2022-09-14 19:35] LABS: Hemoglobin A1C 8.2 % (<5.7)
[2022-09-14 19:43] LABS: Troponin I < 0.012 ng/mL (0.000-0.034)
[2022-09-14 20:00] VITALS: BP 129/51; PULSE 112; PULSE 115; RESP 14; TEMP 36.1; O2SAT 91
[2022-09-14 21:03] VITALS: BP 109/52; BP 99/64
[2022-09-14 21:55] LABS: Glucose Point of Care 197 mg/dl (65-105)
[2022-09-14 22:00] VITALS: PULSE 97
[2022-09-14] MEDS: SODIUM CHLORIDE 0.9% IV 1,000 ML 100 ML IV CONT (23:02)
[2022-09-14] MEDS: MAGNESIUM SULFATE 3GM/D5W100ML 3 GM/100 ML BAG IVPB (23:02)
[2022-09-14 23:05] VITALS: PULSE 100
[2022-09-14] MEDS: METOPROLOL TARTRATE 25 MG TABLET PO (23:05)
[2022-09-14] MEDS: ENOXAPARIN 60 MG/0.6 ML SYRINGE SUB-Q (23:06)
[2022-09-14 23:11] VITALS: PULSE 82; RESP 16; O2SAT 100
[2022-09-15] VITALS (20 sets, daily range): BP systolic 106–143; BP diastolic 44–81; PULSE 67–116; RESP 14–18; TEMP 36.1–37; O2SAT 95–100
[2022-09-15 08:01] LABS: Glucose Point of Care 234 mg/dl (65-105)
[2022-09-15] MEDS: INSULIN ASPART (*BKC) 100 UNITS/ML SUB-Q ×3 (08:13→16:51)
[2022-09-15] MEDS: METOPROLOL TARTRATE 25 MG TABLET PO ×2 (08:15→20:39)
[2022-09-15 09:01] LABS: Anion Gap 10 mmol/L (8-16); Blood Urea Nitrogen 24 mg/dL (7-17); Calcium 8.2 mg/dL (8.4-10.2); Carbon Dioxide 23 mmol/L (22-30); Chloride 98 mmol/L (98-107); Estimated CRCL calculation 35 ml/min; Estimated Glomerular Filt Rate 59; Glucose 271 mg/dL (65-110); Magnesium 1.9 mg/dL (1.6-2.3); Potassium 3.8 mmol/L (3.4-5.0); Sodium 131 mmol/L (137-145)
[2022-09-15 09:16] LABS: Basophils Absolute Auto 0.1 K/mm3 (0.0-0.1); Basophils Percent Auto 1.3 % (0.2-1.2); Eosinophils Absolute Auto 0.2 K/mm3 (0-0.3); Eosinophils Percent Auto 2.4 % (0-4.4); Hematocrit 40.4 % (37.0-47.0); Hemoglobin 13.2 g/dL (12.0-15.0); Immature Granulocyte Absolute 0.05 K/mm3 (0.00-0.031); Immature Granulocyte Percent A 0.6 % (0-0.5); Lymphocytes Absolute Auto 2.31 K/mm3 (0.9-3.2); Lymphocytes Percent Auto 29.8 % (18.3-44.2); Mean Corpuscular HGB Conc 32.7 g/dl (32-36); Mean Corpuscular Hemoglobin 28.7 pg (26-34); Mean Corpuscular Volume 87.8 fl (80-100); Monocytes Absolute Auto 0.7 K/mm3 (0.1-0.6); Monocytes Percent Auto 8.5 % (2.6-8.5); Neutrophils Absolute Auto 4.5 K/mm3 (1.3-6.7); Neutrophils Percent Auto 57.4 % (45.5-73.1); Platelet Count Result 279 k/mm3 (150-375); Red Cell Distribution Width 13.8 % (11.5-14.5); White Blood Count 7.8 K/mm3 (4.5-10.0)
--- NOTE | 2022-09-15 09:18 | PM.IMPN ---
Progress Note: A&P Assessment and Plan (1) A-fib: Code(s): I48.91 - Unspecified atrial fibrillation Status: Acute Assessment and Plan: New onset AFib. Heart rate control. Patient on p.o. metoprolol. Cardizem discontinued. DC Lovenox. Start on Eliquis. Echo pending. Keep potassium around 4 and Mag around 2. Check BMP and Mag (2) Chronic kidney disease, stage 3: Code(s): N18.30 - Chronic kidney disease, stage 3 unspecified Status: Acute Assessment and Plan: Stable. Avoid nephrotoxic drugs (3) Insulin dependent diabetes mellitus: Status: Chronic Assessment and Plan: Sliding scale insulin with Accu-Cheks AC and HS (4) Hypertension: Qualifiers: Hypertension type: primary hypertension Qualified Code(s): I10 - Essential (primary) hypertension Code(s): I10 - Essential (primary) hypertension Status: Acute Assessment and Plan: On metoprolol. Hold lisinopril hydrochlorothiazide Subjective Date/time seen: 09/15/22 09:18 No chest pain, shortness of breath Review of Systems Review of Systems: Twelve systems were reviewed. No fever, chills, or sweats. No recent cold or flu symptoms. Except as documented, all other systems were reviewed and are negative. Exam Const: Other: Well-developed female sitting up in bed no acute distress. Weight: 62.3 kilograms. BMI: 22.9. HENMT: Other: Normocephalic, atraumatic. Nares pain bilaterally. Oral mucosa is tacky. Eyes: Other: Extraocular motions intact. Changes of prior surgery on the left eye. Sclerae anicteric. Neck: Other: Supple. No obvious carotid bruits. No JVD. No thyromegaly. Resp: Other: Respirations are nonlabored and lungs are clear to auscultation. Cardio: Other: Irregularly irregular rate and rhythm. Telemetry shows ventricular rates between 110 and 120 at the time my evaluation. GI: Other: Abdomen is soft, nontender, and nondistended with positive bowel sounds. Skin: Other: Warm and dry. No rash or lesion on limited exam. Neuro: Other: Alert. Cranial nerves 2-12 are grossly intact. No gross focal deficits to casual conversation. Extrem: Other: No cyanosis, clubbing, or edema. Peripheral pulses intact. Psych: Other: Pleasant and cooperative with appropriate mood and affect. Objective Data Vital Signs Vital Signs: Vital Signs - 24 hr 09/14/22 18:39 09/14/22 20:00 09/14/22 20:00 Temperature 97.6 F 97.0 F L Pulse Rate 80 112 H Respiratory Rate 20 14 Blood Pressure 147/95 H 129/51 L 129/51 L Pulse Oximetry 95 91 Oxygen Delivery 09/14/22 21:03 09/14/22 21:03 09/14/22 20:00 Temperature Pulse Rate 112 H Respiratory Rate 14 Blood Pressure 109/52 L 99/64 L Pulse Oximetry 91 Oxygen Delivery Room Air 09/14/22 23:05 09/15/22 00:00 09/14/22 20:00 Temperature 97.0 F L Pulse Rate 100 82 115 H Respiratory Rate 16 Blood Pressure 116/61 Pulse Oximetry 100 Oxygen Delivery 09/14/22 22:00 09/14/22 23:11 09/15/22 00:00 Temperature Pulse Rate 97 82 116 H Respiratory Rate 16 Blood Pressure Pulse Oximetry 100 Oxygen Delivery Room Air 09/15/22 02:00 09/15/22 04:00 09/15/22 03:17 Temperature 97.9 F Pulse Rate 79 77 77 Respiratory Rate 16 16 Blood Pressure 137/54 L Pulse Oximetry 97 97 Oxygen Delivery Room Air 09/15/22 04:00 09/15/22 05:39 09/15/22 08:15 Temperature Pulse Rate 76 74 90 Respiratory Rate Blood Pressure Pulse Oximetry Oxygen Delivery 09/15/22 08:16 09/15/22 08:00 Temperature 97.4 F L Pulse Rate 74 Respiratory Rate 16 Blood Pressure 121/60 110/50 L Pulse Oximetry 100 Oxygen Delivery Intake/Output Intake/Output: Intake & Output 09/12/22 09/13/22 09/14/22 09/15/22 23:59 23:59 23:59 23:59 Intake Total 100 / 100 Output Total 1200 / 1200 Balance -1100 / -1100 Meds/Results Medications: Active Medicatio
[2022-09-15 11:36] LABS: Glucose Point of Care 295 mg/dl (65-105)
[2022-09-15] MEDS: polyethylene glycoL 3350 17 GM POWD.PACK PO (16:26)
[2022-09-15 17:01] LABS: Glucose Point of Care 254 mg/dl (65-105)
[2022-09-15] MEDS: APIXABAN 5 MG TABLET PO (20:39)
[2022-09-16] VITALS (10 sets, daily range): BP systolic 124–135; BP diastolic 44–92; PULSE 57–89; RESP 16–20; TEMP 35.8–36.8; O2SAT 97–100; BMI 22.8
[2022-09-16 08:08] LABS: Glucose Point of Care 259 mg/dl (65-105)
[2022-09-16] MEDS: INSULIN ASPART (*BKC) 100 UNITS/ML SUB-Q ×2 (09:09→12:20)
[2022-09-16] MEDS: METOPROLOL TARTRATE 25 MG TABLET PO (09:12)
[2022-09-16] MEDS: APIXABAN 5 MG TABLET PO (09:12)
[2022-09-16] MEDS: PERFLUTREN LIPID MICROSPHERES 1.5 ML VIAL DILUTED TO 10 ML TOTAL VOLUME IV PUSH (10:00)
--- NOTE | 2022-09-16 10:01 | IVDEFINITY ---
Prior to administration of IV Definity the patient was educated on the risks and benefits of the imaging enhancing agent including potential adverse side effects. The patient verbalized understanding. Allergies were verified. No exclusion criteria were identified and at least one of the following inclusion criteria were met: 1) physician request, 2) patient technically difficult to image (per the [place] [employer] Echocardi[employer] guidelines of two or more segments not discernable within the apical view), or 3) questionable left ventricular function. ?
--- NOTE | 2022-09-16 10:25 | PM.IMPN ---
Progress Note: A&P Assessment and Plan (1) A-fib: Code(s): I48.91 - Unspecified atrial fibrillation Status: Acute Assessment and Plan: New onset AFib. Heart rate control. Patient on p.o. metoprolol. Cardizem discontinued. started on Eliquis. Echo pending. Keep potassium around 4 and Mag around 2. Check BMP and Mag (2) Chronic kidney disease, stage 3: Code(s): N18.30 - Chronic kidney disease, stage 3 unspecified Status: Acute Assessment and Plan: Stable. Avoid nephrotoxic drugs (3) Insulin dependent diabetes mellitus: Status: Chronic Assessment and Plan: Sliding scale insulin with Accu-Cheks AC and HS (4) Hypertension: Qualifiers: Hypertension type: primary hypertension Qualified Code(s): I10 - Essential (primary) hypertension Code(s): I10 - Essential (primary) hypertension Status: Acute Assessment and Plan: On metoprolol. Hold lisinopril hydrochlorothiazide Subjective Date/time seen: 09/16/22 10:25 no chest pain, shortness a breath. No palpitations. Feels little weak Review of Systems Review of Systems: Twelve systems were reviewed. No fever, chills, or sweats. No recent cold or flu symptoms. Except as documented, all other systems were reviewed and are negative. Exam Const: Other: Well-developed female sitting up in bed no acute distress. Weight: 62.3 kilograms. BMI: 22.9. HENMT: Other: Normocephalic, atraumatic. Nares pain bilaterally. Oral mucosa is tacky. Eyes: Other: Extraocular motions intact. Changes of prior surgery on the left eye. Sclerae anicteric. Neck: Other: Supple. No obvious carotid bruits. No JVD. No thyromegaly. Resp: Other: Respirations are nonlabored and lungs are clear to auscultation. Cardio: Other: Irregularly irregular rate and rhythm. Telemetry shows ventricular rates between 110 and 120 at the time my evaluation. GI: Other: Abdomen is soft, nontender, and nondistended with positive bowel sounds. Skin: Other: Warm and dry. No rash or lesion on limited exam. Neuro: Other: Alert. Cranial nerves 2-12 are grossly intact. No gross focal deficits to casual conversation. Extrem: Other: No cyanosis, clubbing, or edema. Peripheral pulses intact. Psych: Other: Pleasant and cooperative with appropriate mood and affect. Objective Data Vital Signs Vital Signs: Vital Signs - 24 hr 09/15/22 12:00 09/15/22 12:00 09/15/22 14:00 Temperature 97.1 F L Pulse Rate 67 81 85 Respiratory Rate 16 Blood Pressure 119/48 L Pulse Oximetry 97 Oxygen Delivery 09/15/22 16:30 09/15/22 17:17 09/15/22 17:17 Temperature 98.4 F Pulse Rate 79 Respiratory Rate 18 Blood Pressure 119/48 L 126/50 L 143/81 H Pulse Oximetry 95 Oxygen Delivery 09/15/22 16:00 09/15/22 16:00 09/15/22 18:00 Temperature 98.4 F Pulse Rate 79 75 78 Respiratory Rate 18 Blood Pressure 118/54 L Pulse Oximetry 95 Oxygen Delivery 09/15/22 16:00 09/15/22 20:39 09/15/22 20:00 Temperature 98.4 F Pulse Rate 74 74 Respiratory Rate 18 Blood Pressure 143/81 H Pulse Oximetry 95 Oxygen Delivery Room Air 09/15/22 20:00 09/15/22 20:00 09/15/22 20:00 Temperature 97.0 F L Pulse Rate 74 80 Respiratory Rate 18 14 Blood Pressure 138/44 L 138/44 L Pulse Oximetry 95 99 Oxygen Delivery Room Air 09/15/22 20:56 09/15/22 20:56 09/15/22 23:12 Temperature 98.6 F Pulse Rate 84 Respiratory Rate 16 Blood Pressure 106/47 L 119/54 L 129/64 Pulse Oximetry 97 Oxygen Delivery 09/15/22 20:00 09/15/22 22:00 09/16/22 00:00 Temperature Pulse Rate 85 84 86 Respiratory Rate Blood Pressure Pulse Oximetry Oxygen Delivery 09/16/22 00:00 09/16/22 02:00 09/16/22 04:00 Temperature Pulse Rate 86 89 77 Respiratory Rate 16 Blood Pressure Pulse Oximetry 97 Oxygen Delivery Room Air 09/16/22 04:00 09/16/22
[2022-09-16 11:28] LABS: Anion Gap 9 mmol/L (8-16); Blood Urea Nitrogen 23 mg/dL (7-17); Calcium 8.2 mg/dL (8.4-10.2); Carbon Dioxide 24 mmol/L (22-30); Chloride 98 mmol/L (98-107); Estimated CRCL calculation 29 ml/min; Estimated Glomerular Filt Rate 47; Glucose 352 mg/dL (65-110); Magnesium 1.4 mg/dL (1.6-2.3); Potassium 3.9 mmol/L (3.4-5.0); Sodium 131 mmol/L (137-145)
[2022-09-16 11:53] LABS: Glucose Point of Care 350 mg/dl (65-105)
--- NOTE | 2022-09-16 14:08 | PM.DS ---
DS: Admitting Diagnosis Discharge Date 09/16/22 Admitting Diagnosis A. fib with rvr DS: Summary Hospital Course Hospital Course: [place] [facility] [place] after she was reportedly found to be in atrial fibrillation with rapid ventricular response. her CHADS2 Vasc score would be 5 and anticoagulation would be indicated. she was started on cardizem drip which was later discontinued once her HR was controlled. ?she was started on metoprolol tartrate 25 mg b.i.d.. Echocardiogram has been ordered for a.m. Her magnesium will be replaced and monitored. Continue basal insulin. Initiate sliding scale insulin, Accu-Cheks, and hypoglycemic protocol.?she has been started on eliquis. Echo:?1. Left ventricular chamber dimension is normal. ? 2. Left ventricular systolic function is normal, estimated at 65-70%. ? 3. There is no increased left ventricular wall thickness. ? 4. The left ventricular diastolic function is grade I diastolic dysfunction. ? 5. Left atrial chamber dimension is moderately enlarged. ? 6. There is moderate aortic valve sclerosis. ? 7. The mitral valve has calcified leaflets and calcified annulus. ? 8. There is mild mitral valve stenosis. ? 9. There is mild mitral valve regurgitation. ? 10. There is mild tricuspid valve regurgitation. patient has mildly low sodium so I will stop her HCTZ. i'll start her on low dose lisinopril. pcp to monitor bmp. she has low magnesium which we will replace. patient is stable and is being discharged. Time Spent with Patient Time attestation: Total time spent providing and/or coordinating discharge services: Exam Const: Other: Well-developed female sitting up in bed no acute distress. Weight: 62.3 kilograms. BMI: 22.9. HENMT: Other: Normocephalic, atraumatic. Nares pain bilaterally. Oral mucosa is tacky. Eyes: Other: Extraocular motions intact. Changes of prior surgery on the left eye. Sclerae anicteric. Neck: Other: Supple. No obvious carotid bruits. No JVD. No thyromegaly. Resp: Other: Respirations are nonlabored and lungs are clear to auscultation. Cardio: Other: Irregularly irregular rate and rhythm. Telemetry shows ventricular rates between 110 and 120 at the time my evaluation. GI: Other: Abdomen is soft, nontender, and nondistended with positive bowel sounds. Skin: Other: Warm and dry. No rash or lesion on limited exam. Neuro: Other: Alert. Cranial nerves 2-12 are grossly intact. No gross focal deficits to casual conversation. Extrem: Other: No cyanosis, clubbing, or edema. Peripheral pulses intact. Psych: Other: Pleasant and cooperative with appropriate mood and affect. DS: Data Data Completed and Pending Labs on day of discharge: Labs from last 24 hours 09/16/22 09/16/22 09/16/22 11:36 10:57 07:31 Sodium 131 L Potassium 3.9 Chloride 98 Carbon Dioxide 24 Anion Gap 9 BUN 23 H Creatinine 1.10 H Estim Creat Clear Calc 29 Estimated GFR 47 L Glucose 352 H POC Capillary Glucose 350 H 259 H Calcium 8.2 L Magnesium 1.4 L 09/15/22 16:04 Sodium Potassium Chloride Carbon Dioxide Anion Gap BUN Creatinine Estim Creat Clear Calc Estimated GFR Glucose POC Capillary Glucose 254 H Calcium Magnesium Discharge Plan Discharge Discharging Clinician: Lenny Meehan Anticipated Discharge Date/Time: 09/16/22 14:06 Patient Disposition: NH Longterm/Asst Living Activity: february shower Diet: heart healthy and diabetic Patient Instructions: Antibiotic Form Stand Alone Forms: General Discharge Information Follow-up/Referrals: Brandon Narvaez DO [Primary Care Provider] - Discharge Medications: New metoprolol tartrate 25 mg Tablet 25 mg PO BID 30 Days Qty: 60 0RF Eliquis 5 mg Tablet 5 mg PO BID 30 Days Qty: 60 0RF lisinopril 5 mg tablet 5 mg PO D
[2022-09-16] MEDS: MAGNESIUM SULF 2 GM/WATER 50ML 2 GM/50 ML BAG IVPB (14:37)
--- NOTE | 2022-09-16 18:49 | ECHO_ITS ---
Patient Info Name: Juana Adams Age: 87 years : 1935 Gender: Female Ht: 65 in Wt: 143 lbs BSA: 1.73 m2 HR: 73 bpm BP: 126 / 44 mmHg Heart Rhythm: Sinus Rhythm Technical Quality: Fair Exam Date: 09/16/2022 9:02 AM Exam Location: [facility] Patient Status: Inpatient Admit Date: 09/14/2022 Staff Ordering Physician: Celi Ambriz PA-C Audio Visual Aids Director: Carmen Lai RDCS Attending Provider: Lenny Meehan MD Referring Physician: Katina SZYMANSKI; Exam Type: CA echo dop color flow w con Study Info Indications - atrial tachycardia Complete two-dimensional, color flow and Doppler transthoracic echocardiogram is performed with contrast to opacify the left ventricle and to improve the deliniation of the left ventricle endocardial borders. Contrast/Agitated Saline Contrast/Ag. Saline: Definity Amount: 3.00 ml Administered By: Carmen Lai RDCS Existing IV Access: Yes IV Access Condition: patent with no signs of infiltration Summary 1. Left ventricular chamber dimension is normal. 2. Left ventricular systolic function is normal, estimated at 65-70%. 3. There is no increased left ventricular wall thickness. 4. The left ventricular diastolic function is grade I diastolic dysfunction. 5. Left atrial chamber dimension is moderately enlarged. 6. There is moderate aortic valve sclerosis. 7. The mitral valve has calcified leaflets and calcified annulus. 8. There is mild mitral valve stenosis. 9. There is mild mitral valve regurgitation. 10. There is mild tricuspid valve regurgitation. Left Ventricle Left ventricular chamber dimension is normal. Left ventricular systolic function is normal, estimated at 65-70%. There is no increased left ventricular wall thickness. The left ventricular diastolic function is grade I diastolic dysfunction. Right Ventricle Right ventricular chamber dimension is normal. Right ventricular systolic function is normal. Left Atria Left atrial chamber dimension is moderately enlarged. Right Atria Right atrial chamber dimension is normal. Atrial Septum Intact interatrial septum visualized by color flow imaging. Aortic Valve The aortic valve is trileaflet. There is moderate aortic valve sclerosis. There is no aortic valve stenosis. There is trace aortic valve regurgitation. Pulmonic Valve The pulmonic valve is normal. There is no pulmonic valve stenosis. There is trace pulmonic regurgitation. Mitral Valve The mitral valve has calcified leaflets and calcified annulus. There is mild mitral valve stenosis. There is mild mitral valve regurgitation. Tricuspid Valve The tricuspid valve leaflets are normal. There is no significant tricuspid valve stenosis. There is mild tricuspid valve regurgitation. No pulmonary hypertension, estimated pulmonary arterial systolic pressure is 31 mmHg. Pericardium/Pleural The pericardium appears normal. There is no pericardial effusion. Inferior Vena Cava Normal inferior vena cava with >50% collapse upon inspiration consistent with normal right atrial pressure, 5 mmHg. Aorta The aortic root size at the sinus of Valsalva is normal. Left Ventricular Outflow Tract Name Value Normal LVOT 2D
== END 2022-09-16 16:28 ==
PROVIDERS: Family Medicine; Physician Assistant; Admitting Provider Hospitalist; PCP Family Medicine; Visit Provider Hospitalist
DX: I48.91 Unspecified atrial fibrillation (principal); I47.1 Supraventricular tachycardia; E83.42 Hypomagnesemia; I12.9 Hypertensive chronic kidney disease with stage 1 through stage 4 chronic kidney disease, or unspecified chronic kidney disease; N18.30 Chronic kidney disease, stage 3 unspecified; E11.22 Type 2 diabetes mellitus with diabetic chronic kidney disease; E11.649 Type 2 diabetes mellitus with hypoglycemia without coma; E11.40 Type 2 diabetes mellitus with diabetic neuropathy, unspecified; R94.31 Abnormal electrocardiogram [ECG] [EKG]; R42 Dizziness and giddiness; I08.3 Combined rheumatic disorders of mitral, aortic and tricuspid valves; Z79.4 Long term (current) use of insulin; Z79.82 Long term (current) use of aspirin; Z79.891 Long term (current) use of opiate analgesic
CPT/HCPCS: 36415; 80048; 82948; 83036; 83735; 84443; 84484; 85025; 93005; 96361; 96365; 96366; 96372; 96375; A9270; C8929; G0378; J1650; J1815; J3475; J7030; Q9957

== ENCOUNTER 2022-10-05 10:37 | Outpatient (NON) | payer OTHER, SELFPAY ==
[2022-10-05 10:58] LABS: Basophils Absolute Auto 0.09 K/mm3 (0.00-0.10); Basophils Percent Auto 1.1 % (0.0-1.0); Eosinophils Absolute Auto 0.14 K/mm3 (0.02-0.50); Eosinophils Percent Auto 1.7 % (1.0-6.0); Hematocrit 39.3 % (35.0-42.0); Hemoglobin 13.2 g/dL (11.7-13.8); Immature Granulocyte Absolute 0.05 K/mm3 (0.00-0.00); Immature Granulocyte Percent A 0.6 % (0.0-0.0); Lymphocytes Absolute Auto 1.89 K/mm3 (1.10-4.50); Lymphocytes Percent Auto 23.1 % (18.0-42.0); Mean Corpuscular HGB Conc 33.6 g/dL (32.0-36.0); Mean Corpuscular Hemoglobin 28.9 pg (27.0-31.0); Mean Platelet Volume 10.6 fl (9.2-11.8); Monocytes Absolute Auto 0.75 K/mm3 (0.10-0.90); Monocytes Percent Auto 9.2 % (2.0-11.0); Neutrophils Absolute Auto 5.3 K/mm3 (1.7-7.2); Neutrophils Percent Auto 64.3 % (50.0-70.0); Platelet Count Result 297 K/mm3 (150-420); Red Blood Count 4.57 M/mm3 (4.20-5.40); Red Cell Distribution Width 13.4 % (11.6-14.4); White Blood Count 8.2 K/mm3 (4.8-10.8)
[2022-10-05 11:09] LABS: Hemoglobin A1C 7.3 % (<5.7)
[2022-10-05 11:12] LABS: Alanine Aminotransferase 20 U/L (14-59); Albumin Level 3.4 g/dL (3.4-5.0); Alkaline Phosphatase 191 U/L (46-116); Anion Gap 9 mmol/L (8-16); Aspartate Amino Transferase 21 U/L (15-37); Bilirubin,Total 0.7 mg/dL (0.00-1.00); Blood Urea Nitrogen 18 mg/dL (7-18); Calcium 8.6 mg/dL (8.5-10.1); Carbon Dioxide 27 mmol/L (21-32); Chloride 98 mmol/L (98-108); Estimated Glomerular Filt Rate 57; Glucose 323 mg/dL (70-99); Magnesium 1.2 mg/dL (1.8-2.4); Osmolality Calculated 291 mOsm/kg (285-295); Potassium 4.2 mmol/L (3.5-5.1); Sodium 134 mmol/L (136-145); Total Protein 6.8 g/dL (6.4-8.2)
[2022-10-08 14:23] LABS: Vitamin D 25 Hydroxy 8 ng/mL (30-100)
== END 2022-10-05 10:38 | disposition home or self-care (01) ==
LOC: CHSLAB 10:39
PROVIDERS: PCP Family Medicine; Visit Provider Nurse Practitioner Family
DX: E83.42 Hypomagnesemia (principal); I10 Essential (primary) hypertension; Z79.899 Other long term (current) drug therapy; E11.9 Type 2 diabetes mellitus without complications
CPT/HCPCS: 80053; 82306; 83036; 83735; 85025

== ENCOUNTER 2022-10-26 11:52 | Outpatient (NON) | payer OTHER, SELFPAY ==
[2022-10-26 12:11] LABS: Add Urine Microscopic? YES; Appearance Urine Clear (Clear); Bilirubin Urine Negative (Negative); Blood Urine Negative (Negative); Color Urine Light Yellow (Yellow); Glucose Urine UA Negative (Negative); Ketones Urine Negative (Negative); Leukocyte Esterase Ur Trace LEU/UL (Negative); Nitrate Urine Negative (Negative); Protein Urine Negative (Negative)
[2022-10-26 12:17] LABS: Bacteria Urine Trace /hpf; RBC Urine 0-2 /hpf (0-2); Squamous Epithelial Cell Urine Moderate /hpf (Few)
== END 2022-10-26 11:53 | disposition home or self-care (01) ==
LOC: CHSLAB 11:53
PROVIDERS: Visit Provider Family Medicine
DX: M54.50 Low back pain, unspecified (principal); R30.0 Dysuria
CPT/HCPCS: 81001

== ENCOUNTER 2022-12-07 20:49 | Emergency (ER) | payer OTHER, SELFPAY ==
--- NOTE | 2022-12-07 20:58 | ED.NAVMDI ---
HPI - Nausea/Vomiting/Diarrhea General Chief complaint: Upper Respiratory Infection Stated complaint: ambulance Time Seen by Provider: 12/07/22 20:57 Source: patient Mode of arrival: ambulatory Limitations: no limitations History of Present Illness HPI Narrative: 87-year-old female, [facility] resident with hypertension, atrial fibrillation, CKD, diabetes mellitus with peripheral neuropathy, diverticulosis presents to the ER with -- nausea with multiple episodes of vomiting since today afternoon -- diarrhea. multiple episodes since afternoon. -- Body ache No fever. No abdominal pain. MD elicited complaint: nausea, vomiting and diarrhea Onset (ago): hour(s) ( started 6 hours) Description of vomiting: watery Description of diarrhea: watery Associated nausea: Yes Associated abdominal pain: No Exacerbating factors: none Relieving factors: none Related Data Allergies Allergy/AdvReac Type Severity Reaction Status Date / Time No Known Allergies Allergy Verified 09/22/22 14:50 Review of Systems Review of Systems: All systems reviewed & are unremarkable except as noted in HPI and below Constitutional: Constitutional: Reports as per HPI and Reports no additional constitutional complaints Eyes: Eyes: Reports as per HPI and Reports no additional eye complaints ENT: Reports system reviewed and no additional complaints, except as documented and Reports as per HPI Comments: dry mouth Cardiovascular: Cardiovascular: Reports as per HPI and Reports no additional cardiovascular complaints Respiratory: Respiratory: Reports as per HPI and Reports no additional respiratory complaints Gastrointestinal: Gastrointestinal: Reports as per HPI, Reports no additional gastrointestinal complaints, Reports diarrhea, Reports nausea and Reports vomiting Genitourinary: Genitourinary: Reports no additional female genitourinary complaints Musculoskeletal: Musculoskeletal: Reports no additional musculoskeletal complaints and Reports myalgias Integumentary/Breasts: Skin/Breast: Reports system reviewed and no additional complaints, except as docu and Reports as per HPI Neurologic: Reports system reviewed and no additional complaints, except as documented and Reports as per HPI Psychiatric: Psychiatric: Reports no additional psychiatric complaints and Reports as per HPI Endocrine: Endocrine: Reports no additional endocrine complaints and Reports as per HPI Hematologic/Lymphatic: Hematologic/Lymphatic: Reports no additional hematologic/lymphatic complaints and Reports as per HPI Allergic/Immunologic: Allergic/Immunologic: Reports no additional allergic/immunologic complaints and Reports as per HPI PMFSH Past Medical History Medical History Chronic kidney disease, stage 3 Diabetic peripheral neuropathy Diverticulitis of colon with perforation Fuchs' corneal dystrophy Gastroenteritis Insulin dependent diabetes mellitus Surgical History Surgical History History of abdominal surgery Panniculectomy History of appendectomy History of bilateral knee replacement History of colon resection had a colon resection with colostomy and subsequent reversal due to perforated diverticulitis. History of colostomy reversal Colostomy reversal about 4 months after her colon resection History of corneal transplant History of gastric stapling History of partial hysterectomy Family History Family History Mother Family history of arthritis Family history of malignant neoplasm of breast in first degree relative Social History Social History Social History: Healthcare power of inker machine: Shey Kirk, daughter. Code status: Do not resuscitate. Smoking status: Never smoker Alcohol intake: never Substance use: never
[2022-12-07 21:08] VITALS: BP 138/70; PULSE 78; RESP 20; TEMP 37.2; O2SAT 95
--- NOTE | 2022-12-07 21:23 | ECG_ITS ---
Measurements Intervals [place] Rate: 97 P: 34 MA: 118 QRS: -13 QRSD: 72 T: 19 QT: 354 QTc: 452 Interpretive Statements PROBABLE sINUS RHYTHM WITH SHORT MA INTERVAL WITH OCCASIONAL SUPRAVENTRICULAR PREMATURE COMPLEXES POSSIBLE LEFT ATRIAL ENLARGEMENT [-0.1mV P-WAVE IN V1/V2] LOW QRS VOLTAGE IN PRECORDIAL LEADS [QRS DEFLECTION < 1.0 mV IN CHEST LEADS] PATTERN CONSISTENT WITH PULMONARY DISEASE BASELINE ARTIFACT PRESENT COMPARED TO ECG 09/14/2022 22:44:43 SINUS RHYTHM NOW PRESENT Electronically Signed On 12-08-2022 20:15:41 MENTAL HEALTH ASSOCIATE by Rae Gibbons M.D.
[2022-12-07] MEDS: LACTATED RINGERS 500 ML 999 ML IV CONT (21:38)
[2022-12-07 21:39] LABS: Basophils Absolute Auto 0.03 K/mm3 (0.00-0.10); Basophils Percent Auto 0.3 % (0.0-1.0); Eosinophils Absolute Auto 0.09 K/mm3 (0.02-0.50); Eosinophils Percent Auto 0.8 % (1.0-6.0); Hematocrit 37.9 % (35.0-42.0); Hemoglobin 12.6 g/dL (11.7-13.8); Immature Granulocyte Absolute 0.07 K/mm3 (0.00-0.00); Immature Granulocyte Percent A 0.7 % (0.0-0.0); Lymphocytes Absolute Auto 0.89 K/mm3 (1.10-4.50); Lymphocytes Percent Auto 8.3 % (18.0-42.0); Mean Corpuscular HGB Conc 33.2 g/dL (32.0-36.0); Mean Corpuscular Hemoglobin 28.2 pg (27.0-31.0); Mean Corpuscular Volume 84.8 fL (78.0-102.0); Mean Platelet Volume 9.9 fl (9.2-11.8); Monocytes Absolute Auto 0.52 K/mm3 (0.10-0.90); Monocytes Percent Auto 4.9 % (2.0-11.0); Neutrophils Absolute Auto 9.1 K/mm3 (1.7-7.2); Platelet Count Result 268 K/mm3 (150-420); Red Blood Count 4.47 M/mm3 (4.20-5.40); Red Cell Distribution Width 13.8 % (11.6-14.4); White Blood Count 10.7 K/mm3 (4.8-10.8)
[2022-12-07] MEDS: ONDANSETRON INJ 4 MG/2 ML VIAL IV PUSH (21:39)
[2022-12-07 21:45] LABS: Influenza A QL RT-PCR Negative (Negative); Influenza B QL RT-PCR Negative (Negative); RSV RNA, RT-PCR Negative (Negative); SARS-CoV-2 RNA PCR Negative (Negative)
[2022-12-07 21:54] LABS: INR 1.1; Partial Thromboplastin Time 28.5 SEC (23.90-30.70); Prothrombin Time 11.9 Seconds (9.50-12.10)
[2022-12-07 23:19] LABS: Alanine Aminotransferase 29 U/L (14-59); Albumin Level 3.1 g/dL (3.4-5.0); Alkaline Phosphatase 190 U/L (46-116); Anion Gap 9 mmol/L (8-16); Aspartate Amino Transferase 32 U/L (15-37); Bilirubin,Total 0.6 mg/dL (0.00-1.00); Blood Urea Nitrogen 17 mg/dL (7-18); Calcium 8.3 mg/dL (8.5-10.1); Carbon Dioxide 26 mmol/L (21-32); Chloride 99 mmol/L (98-108); Estimated CRCL calculation 39 ml/min; Estimated Glomerular Filt Rate 58; Glucose 161 mg/dL (70-99); Lipase 8 U/L (16-77); NT Pro B Type Natriuretic Pept 596 pg/mL (0-450); Osmolality Calculated 282 mOsm/kg (285-295); Potassium 3.5 mmol/L (3.5-5.1); Sodium 134 mmol/L (136-145); Total Protein 6.6 g/dL (6.4-8.2); Troponin I 10.2 ng/L (0.00-60.4)
[2022-12-07 23:24] LABS: Lactic Acid Reflex 1.8 mmol/L (0.4-2.0)
[2022-12-07] MEDS: MAGNESIUM SULF 4 GM/WATER100ML 4 GM/100 ML BAG IVPB (23:46)
[2022-12-07 23:48] VITALS: BP 130/90; PULSE 70; RESP 18; O2SAT 95
--- NOTE | 2022-12-08 00:03 | PC.NURSE ---
called every member of family, all cell phones turned off. [facility] has no staff to come get patient. when IV complete will attempt to call ambulance for transfer
[2022-12-08 01:24] VITALS: BP 138/88; PULSE 88; RESP 18; TEMP 36.6; O2SAT 98
== END 2022-12-08 01:26 | disposition home or self-care (01) ==
PROVIDERS: Emergency Provider Internal Medicine Critical Care Medicine; PCP Family Medicine
DX: E83.42 Hypomagnesemia (principal); K52.9 Noninfective gastroenteritis and colitis, unspecified; I48.91 Unspecified atrial fibrillation; I12.9 Hypertensive chronic kidney disease with stage 1 through stage 4 chronic kidney disease, or unspecified chronic kidney disease; E11.22 Type 2 diabetes mellitus with diabetic chronic kidney disease; N18.30 Chronic kidney disease, stage 3 unspecified; Z20.822 Contact with and (suspected) exposure to COVID-19
CPT/HCPCS: 36415; 80053; 83605; 83690; 83735; 83880; 84484; 85025; 85610; 85730; 87637; 93005; 96361; 96365; 96375; 99284; J2405; J3475; J7120

== ENCOUNTER 2022-12-21 12:30 | Outpatient (NON) | payer OTHER, SELFPAY ==
[2022-12-21 12:43] LABS: Appearance Urine Clear (Clear); Bilirubin Urine Negative (Negative); Blood Urine Negative (Negative); Color Urine Light Yellow (Yellow); Glucose Urine UA Trace (Negative); Ketones Urine Trace (Negative); Leukocyte Esterase Ur Negative LEU/UL (Negative); Nitrate Urine Negative (Negative); Protein Urine Trace (Negative); Specific Grav Ur 1.015 (1.010-1.020); Urobilinogen Urine 0.2 mg/dL (0.2-1.0); pH Urine 6.5 (5.0-8.0)
[2022-12-21 12:50] LABS: Add Urine Microscopic? YES; Bacteria Urine Trace /hpf; RBC Urine None seen /hpf (0-2); Squamous Epithelial Cell Urine Few /hpf (Few); WBC Urine None seen /hpf (0-3)
[2022-12-21 12:57] LABS: Alanine Aminotransferase 33 U/L (14-59); Alkaline Phosphatase 182 U/L (46-116); Anion Gap 8 mmol/L (8-16); Aspartate Amino Transferase 18 U/L (15-37); Bilirubin,Total 0.8 mg/dL (0.00-1.00); Blood Urea Nitrogen 15 mg/dL (7-18); Calcium 8.7 mg/dL (8.5-10.1); Carbon Dioxide 30 mmol/L (21-32); Chloride 95 mmol/L (98-108); Estimated Glomerular Filt Rate > 60; Glucose 242 mg/dL (70-99); Osmolality Calculated 284 mOsm/kg (285-295); Potassium 4.3 mmol/L (3.5-5.1); Sodium 133 mmol/L (136-145); Total Protein 6.1 g/dL (6.4-8.2)
== END 2022-12-21 12:31 | disposition home or self-care (01) ==
LOC: CHSLAB 12:31
PROVIDERS: PCP Family Medicine; Visit Provider Family Medicine
DX: R35.0 Frequency of micturition (principal); N18.30 Chronic kidney disease, stage 3 unspecified
CPT/HCPCS: 36415; 80053; 81001

== ENCOUNTER 2022-12-22 09:50 | Emergency (ER) | payer OTHER, SELFPAY ==
--- NOTE | ~2022-12-22 | CT_ITS ---
CT head without contrast Indication: Status post fall COMPARISON: 07/29/2022 Technique: Serial scans were obtained through the brain without the administration of contrast. Dose reduction technique was used on this scan by utilizing automated exposure control and iterative recon struction technique. The dose-length product (DLP) was 681.00 mGy-cm. Findings: There is no evidence of intracranial hemorrhage, mass lesion, or acute infarct. The ventri cles and subarachnoid spaces are dilated, consistent with mild atrophy. Low attenuation regions are seen within the periventricular white matter bilaterally, likely representing changes from chronic mi crovascular ischemic disease. There is no evidence of edema, mass effect or midline shift. The visu alized paranasal sinuses and mastoid air cells are clear. Impression: No intracranial hemorrhage, mass, or acute infarct. Atrophy and chronic white matter changes, as above. Reviewed, dictated and finalized at [facility]. RY SHEAR OPERATOR Impression: No intracranial hemorrhage, mass, or acute infarct. Atrophy and chronic white matter changes, as above.
--- NOTE | ~2022-12-22 | CT_ITS ---
EXAMINATION: CT cervical spine wo con DATE: 12/22/2022 11:10 INDICATION: Neck pain after fall TECHNIQUE: Computed tomography (CT) of the cervical spine was performed without intravenous contrast. The dose-length product was 231 mGy-cm. Automated exposure control and iterative reconstruction tech directworxque were employed. COMPARISON: None FINDINGS: There is disc narrowing and endplate degenerative change at multiple levels including C5-6, C6-7 and C7-T1. There is degenerative anterolisthesis at C2-3. There are prominent bridging osteophy eddie anteriorly at multiple levels. There is intracranial atherosclerosis. Odontoid process is normal. There is carotid atherosclerosis. There is multilevel facet and uncinate hypertrophy, most advanced at C5-6 and C6-7. No significant paraspinal soft tissue abnormality. IMPRESSION: 1. No acute abnormality of the cervical spine. 2: Moderate-severe cervical spondylosis. Reviewed, dictated and finalized at location L. DEVELOPER
[2022-12-22 09:50] VITALS: BP 159/61; PULSE 74; RESP 18; TEMP 36.8; O2SAT 98
--- NOTE | 2022-12-22 10:09 | ECG_ITS ---
Measurements Intervals [place] Rate: 73 P: 65 VA: 123 QRS: 3 QRSD: 70 T: 43 QT: 383 QTc: 424 Interpretive Statements SINUS RHYTHM BASELINE ARTIFACT- II, III, AVR, AVL, AVF NORMAL ECG COMPARED TO ECG 12/07/2022 21:32:11 NO SIGNIFICANT CHANGES Electronically Signed On 12-22-2022 11:13:02 CHIEF INVESTMENT OFFICER by Sanjay Ha D.O.
[2022-12-22 10:31] LABS: Basophils Percent Auto 0.8 % (0.0-1.0); Eosinophils Absolute Auto 0.09 K/mm3 (0.02-0.50); Eosinophils Percent Auto 0.7 % (1.0-6.0); Hematocrit 38.6 % (35.0-42.0); Immature Granulocyte Absolute 0.09 K/mm3 (0.00-0.00); Immature Granulocyte Percent A 0.7 % (0.0-0.0); Lymphocytes Absolute Auto 2.39 K/mm3 (1.10-4.50); Lymphocytes Percent Auto 18.7 % (18.0-42.0); Mean Corpuscular HGB Conc 33.7 g/dL (32.0-36.0); Mean Corpuscular Hemoglobin 28.1 pg (27.0-31.0); Mean Corpuscular Volume 83.4 fL (78.0-102.0); Mean Platelet Volume 9.8 fl (9.2-11.8); Monocytes Absolute Auto 1.02 K/mm3 (0.10-0.90); Neutrophils Absolute Auto 9.1 K/mm3 (1.7-7.2); Neutrophils Percent Auto 71.1 % (50.0-70.0); Platelet Count Result 275 K/mm3 (150-420); Red Blood Count 4.63 M/mm3 (4.20-5.40); White Blood Count 12.8 K/mm3 (4.8-10.8)
[2022-12-22] MEDS: ONDANSETRON INJ 4 MG/2 ML VIAL IV PUSH (10:38)
[2022-12-22 10:39] LABS: Glucose Point of Care 130 mg/dl (65-105)
[2022-12-22] MEDS: KETOROLAC 30 MG/ML VIAL (*BKC) IV PUSH (10:39)
--- NOTE | 2022-12-22 10:44 | PC.NURSE ---
Blood sugar 130
[2022-12-22 10:48] LABS: INR 1.2; Partial Thromboplastin Time 31.1 SEC (23.90-30.70); Prothrombin Time 12.9 Seconds (9.50-12.10)
[2022-12-22 10:51] LABS: Lactic Acid Reflex 1.2 mmol/L (0.4-2.0)
[2022-12-22 10:54] LABS: Alanine Aminotransferase 30 U/L (14-59); Albumin Level 2.9 g/dL (3.4-5.0); Alkaline Phosphatase 171 U/L (46-116); Anion Gap 8 mmol/L (8-16); Aspartate Amino Transferase 21 U/L (15-37); Bilirubin,Total 0.8 mg/dL (0.00-1.00); Blood Urea Nitrogen 17 mg/dL (7-18); Calcium 8.2 mg/dL (8.5-10.1); Carbon Dioxide 30 mmol/L (21-32); Chloride 96 mmol/L (98-108); Estimated Glomerular Filt Rate 60; Glucose 130 mg/dL (70-99); Magnesium 1.2 mg/dL (1.8-2.4); NT Pro B Type Natriuretic Pept 602 pg/mL (0-450); Osmolality Calculated 281 mOsm/kg (285-295); Potassium 3.9 mmol/L (3.5-5.1); Sodium 134 mmol/L (136-145); Total Protein 6.8 g/dL (6.4-8.2); Troponin I 7.8 ng/L (0.00-60.4)
--- NOTE | 2022-12-22 11:36 | ED.FALL ---
HPI - Fall General Chief Complaint: Fall Stated Complaint: fall Source: patient and EMS Mode of arrival: EMS Limitations: no limitations History of Present Illness HPI Narrative: this is a 87-year-old female presents with a fall that occurred earlier today while at the nursing she became lightheaded and fell forward injuring the anterior portion of her neck without any loss of consciousness there is no headache no blurry vision patient does have some mild nausea with no vomiting no abdominal pain no chest pain no shortness of breath no flank pain no dysuria or hematuria no fever chills. Patient does have pain in the anterior neck area that she rates about a 8/10, but pain not elicited unless there is palpation or movement. There is no numbness or tingling or radiation down her shoulders or arms or fingers. Neurologically patient is intact nonfocal. MD complaint: fall Onset (ago): hour(s) Fall from: standing Fall witnessed: yes, by family Place fall occurred: senior living[facility]SNF Loss of consciousness: none Prolonged down time: no Symptoms prior to fall: lightheadedness Related Data Home Medications Medication Instructions Recorded Confirmed lisinopril 20 1 tablet PO DAILY 12/22/22 12/22/22 mg-hydrochlorothiazide 12.5 mg tablet Allergies Allergy/AdvReac Type Severity Reaction Status Date / Time No Known Allergies Allergy Verified 12/21/22 08:50 Review of Systems Review of Systems: All systems reviewed & are unremarkable except as noted in HPI and below PMFSH Past Medical History Medical History Chronic kidney disease, stage 3 Diabetic peripheral neuropathy Diverticulitis of colon with perforation Fuchs' corneal dystrophy Gastroenteritis Insulin dependent diabetes mellitus Surgical History Surgical History History of abdominal surgery Panniculectomy History of appendectomy History of bilateral knee replacement History of colon resection had a colon resection with colostomy and subsequent reversal due to perforated diverticulitis. History of colostomy reversal Colostomy reversal about 4 months after her colon resection History of corneal transplant History of gastric stapling History of partial hysterectomy Family History Family History Mother Family history of arthritis Family history of malignant neoplasm of breast in first degree relative Social History Social History Social History: Healthcare power of sap senior developer: Shey Kirk, daughter. Code status: Do not resuscitate. Smoking status: Never smoker Alcohol intake: never Substance use: never Lack of Transportation: No Lack of Food: Never True Current Housing: I Have Housing Concerned About Future Housing: No Difficulty Paying Gas/Electric Bills: No Difficulty Paying for Meds: No Currently Unemployed: No Education: High School Diploma/GED Difficulty w/ Childcare or Family Care: No Living arrangements: assisted living Additional living arrangements comments: [facility] assisted living. Independent in ADL's, walks with walker. Occupation/Education: retired Spiritual care concerns: No Exam Const: General: no acute distress Nutritional Appearance: well nourished Orientation/consciousness: patient oriented x3 Limitations: no limitations HENMT: Head: normal to inspection Face and sinus: normal facial exam Mouth: Yes Normal oral and palatal mucosa present Eyes: Conjunctivae: conjunctivae normal Pupils: Equal, round and reactive pupils present EOM: EOMs intact bilaterally Direct Ophthalmoscopy: no photophobia Neck: Neck: normal visual inspection Chest: Chest palpation & inspection: normal inspection of the chest Resp: Effort & Inspection: normal respiratory effort Auscu
[2022-12-22 11:37] VITALS: BP 154/64; PULSE 77; RESP 20; TEMP 37.1; O2SAT 98
== END 2022-12-22 11:51 | disposition home or self-care (01) ==
PROVIDERS: Emergency Provider Emergency Medicine; PCP Family Medicine
DX: S16.1XXA Strain of muscle, fascia and tendon at neck level, initial encounter (principal); R42 Dizziness and giddiness; I12.9 Hypertensive chronic kidney disease with stage 1 through stage 4 chronic kidney disease, or unspecified chronic kidney disease; E11.22 Type 2 diabetes mellitus with diabetic chronic kidney disease; N18.30 Chronic kidney disease, stage 3 unspecified; I48.91 Unspecified atrial fibrillation; Z79.82 Long term (current) use of aspirin; Z79.891 Long term (current) use of opiate analgesic; Z79.4 Long term (current) use of insulin; W18.30XA Fall on same level, unspecified, initial encounter; Y92.129 Unspecified place in nursing home as the place of occurrence of the external cause
CPT/HCPCS: 36415; 70450; 72125; 80053; 82948; 83605; 83735; 83880; 84484; 85025; 85610; 85730; 93005; 96374; 96375; 99284; J1885; J2405

== ENCOUNTER 2023-01-03 10:27 | Outpatient (CLI) | payer OTHER, SELFPAY ==
--- NOTE | ~2023-01-03 | XR_ITS ---
Lumbosacral Spine: AP and lateral views Clinical History: Pain COMPARISON: 07/28/2022 Findings: Stable levoscoliosis. 14 mm anterolisthesis of L4 over L5 is similar to prior exam. Degener ative disc changes throughout the lumbar spine is similar to prior exam. Facet arthropathy is similar to prior exam. No acute fracture evident. The sacroiliac joints are normally outlined. Impression: Stable degenerative spondylosis and levoscoliosis. 14 mm anterolisthesis of L4 over L5, similar to prior exam. Reviewed, dictated and finalized at location . Impression: Stable degenerative spondylosis and levoscoliosis. 14 mm anterolisthesis of L4 over L5, similar to prior exam.
== END 2023-01-03 10:28 | disposition home or self-care (01) ==
PROVIDERS: PCP Family Medicine; Visit Provider Family Medicine
DX: M54.50 Low back pain, unspecified (principal); W19.XXXA Unspecified fall, initial encounter; M43.06 Spondylolysis, lumbar region
CPT/HCPCS: 72100

== ENCOUNTER 2023-02-14 07:45 | Outpatient (CLI) | payer MEDICARE, MEDICAID, SELFPAY ==
--- NOTE | ~2023-02-14 | MR_ITS ---
EXAMINATION: MR MRCP wo/w con/w 3D wo ind DATE: 02/14/2023 09:19 INDICATION: Pancreas mass. TECHNIQUE: Magnetic resonance imaging (MRI) of the abdomen was performed without and with 10 mL Multi Edgar intravenous contrast. Sequences included coronal T2-weighted FS FSE, coronal T2-weighted FSE, a xial T1-weighted LAVA, coronal FS FIESTA, axial dual-echo T1-weighted SPGR, coronal lava-FLEX, sagitt al T2-weighted FSE, axial T2-weighted FSE, and axial DWI. Thick-slab T2-weighted FSE images were obta ined for magnetic resonance cholangiopancreatography (MRCP). Maximum intensity projection 3-D reconst ructions of the volumetric data were created by the technologist. Postcontrast sequences included cor onal LAVA-flex and time course of axial T1-weighted LAVA. COMPARISON: Chest CT 09/14/2022, CT abdomen and pelvis 12/26/2021 FINDINGS: ABDOMEN MRI: The liver is normal. Calcifications in the spleen are consistent with old granulomatous disease. There are changes of cholecystectomy. The pancreatic duct is dilated to 9 mm in the body an d tail of the pancreas. There is a 4.6 x 2.7 cm mass involving the head of the pancreas. There is tot al occlusion of celiac axis and superior mesenteric artery. The adrenal glands are normal. There is m ild atrophy of right kidney. Left kidney is normal. There are no dilated loops of bowel. There are no pathologically enlarged lymph nodes. There is no free intraperitoneal fluid. ABDOMEN MRCP: There is a stricture involving the common bile duct. IMPRESSION: 1. 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 2. 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 Reviewed, dictated and finalized at location A.
== END 2023-02-14 07:46 | disposition home or self-care (01) ==
PROVIDERS: PCP Family Medicine; Visit Provider Family Medicine
DX: K86.89 Other specified diseases of pancreas (principal); K55.069 Acute infarction of intestine, part and extent unspecified
CPT/HCPCS: 74183; 76376; A9577

== ENCOUNTER 2023-02-21 12:34 | Emergency (ER) | payer MEDICARE, MEDICAID, SELFPAY ==
[2023-02-21] VITALS (7 sets, daily range): BP systolic 117–155; BP diastolic 44–72; PULSE 64–84; RESP 12–14; TEMP 36.7; O2SAT 98–100
--- NOTE | ~2023-02-21 | CT_ITS ---
EXAMINATION: CT cervical spine wo con DATE: 02/21/2023 13:34 INDICATION: Right arm numbness. Neck pain. TECHNIQUE: Computed tomography (CT) of the cervical spine was performed without intravenous contrast. Automated exposure control and iterative reconstruction technique were employed. The dose-length pro duct was 204.64 mGy-cm. COMPARISON: CT cervical spine 12/22/2022 FINDINGS: There is 7 degrees levocurvature of cervical spine. There is 2 mm retrolisthesis of C4 on C 5 and C6 on C7. Vertebral body heights are normal. There is severely decreased disc height at C6-C7. The following disc levels are specifically discussed: C2-C3: There is mild bilateral uncovertebral joint osteoarthritis. There is mild right facet joint os teoarthritis. There is ankylosis of left facet joint with severe hypertrophy. There is mild left neur al foraminal stenosis. There is no central canal stenosis. C3-C4: There is mild bilateral uncovertebral joint osteoarthritis. There is mild bilateral facet join t osteoarthritis. There is no neural foraminal stenosis. There is mild central canal stenosis. C4-C5: There is mild bilateral uncovertebral joint osteoarthritis. There is mild right and moderate l eft facet joint osteoarthritis. There is no neural foraminal stenosis. There is mild central canal st enosis. C5-C6: There is severe right and mild left uncovertebral joint osteoarthritis. There is severe bilate ral facet joint osteoarthritis. There is mild bilateral neural foraminal stenosis. There is mild cent ral canal stenosis. C6-C7: There is severe bilateral uncovertebral joint osteoarthritis. There is severe bilateral facet joint osteoarthritis. There is mild right and moderate left neural foraminal stenosis. There is mild central canal stenosis. C7-T1: There is no uncovertebral joint osteoarthritis. There is severe left facet joint osteoarthriti s. There is ankylosis of right facet joint with moderate hypertrophy. There is no neural foraminal st enosis. There is no central canal stenosis. IMPRESSION: 1. No fracture. 2. Severe cervical spondylosis. Reviewed, dictated and finalized at location A.
--- NOTE | ~2023-02-21 | CT_ITS ---
EXAMINATION: CT brain wo con DATE: 02/21/2023 13:33 INDICATION: Right arm numbness. Neck pain. TECHNIQUE: Computed tomography (CT) of the head was performed without intravenous contrast. The mA wa s adjusted according to patient size. Iterative reconstruction technique was employed. The dose-lengt h product was 605.33 mGy-cm. COMPARISON: Head CT 12/22/2022 FINDINGS: There are scattered areas of low attenuation in the cerebral white matter. There is no intr acranial hemorrhage, acute infarction, or abnormal intracranial mass lesion. The ventricles are hardy l in size. There are likely changes of ocular lens replacement surgeries. There is fluid and mucosal thickening in the paranasal sinuses. There is a small right mastoid effusion. IMPRESSION: 1. Stable moderate nonspecific cerebral white matter disease, which likely represents chronic small v essel ischemic disease. Reviewed, dictated and finalized at location A. IMPRESSION: 1. Stable moderate nonspecific cerebral white matter disease, which likely repr esents chronic small vessel ischemic disease.
--- NOTE | 2023-02-21 13:16 | ED.NEUROSD ---
HPI - Neuro Symptoms/Deficit General Chief Complaint: Neuro Symptoms/Deficit Stated Complaint: arm numbness Time Seen by Provider: 02/21/23 13:06 History of Present Illness HPI Narrative: Patient is an 88-year-old female with a history of diabetes, hypertension, hyperlipidemia, pancreatic mass presenting with right arm numbness. Patient states that she was in her normal state of health last night before going to bed. States that she woke this morning and noticed that her right arm from the elbow to the hand felt numb. States that it feels like it is falling asleep. States that she has chronic back pain. Reports intermittent chronic neck pain. She denies numbness or weakness anywhere else. No speech difficulties. No chest pain or abdominal pain. No vomiting or diarrhea. Denies recent dysuria. No chest pain, shortness of breath, lightheadedness. States that she has also had a tremor in both of her hands that is worsened. Related Data Home Medications Medication Instructions Recorded Confirmed lisinopril 20 1 tablet PO DAILY 12/22/22 02/17/23 mg-hydrochlorothiazide 12.5 mg tablet Allergies Allergy/AdvReac Type Severity Reaction Status Date / Time No Known Allergies Allergy Verified 01/03/23 07:23 Review of Systems Review of Systems: All systems reviewed & are unremarkable except as noted in HPI and below PMFSH Past Medical History Medical History Chronic kidney disease, stage 3 Diabetic peripheral neuropathy Diverticulitis of colon with perforation Fuchs' corneal dystrophy Gastroenteritis Insulin dependent diabetes mellitus Surgical History Surgical History History of abdominal surgery Panniculectomy History of appendectomy History of bilateral knee replacement History of colon resection had a colon resection with colostomy and subsequent reversal due to perforated diverticulitis. History of colostomy reversal Colostomy reversal about 4 months after her colon resection History of corneal transplant History of gastric stapling History of partial hysterectomy Family History Family History Mother Family history of arthritis Family history of malignant neoplasm of breast in first degree relative Social History Social History Social History: Healthcare power of sports attorney: Shey Kirk, daughter. Code status: Do not resuscitate. Smoking status: Never smoker Alcohol intake: never Substance use: never Lack of Transportation: No Lack of Food: Never True Current Housing: I Have Housing Concerned About Future Housing: No Difficulty Paying Gas/Electric Bills: No Difficulty Paying for Meds: No Currently Unemployed: No Education: High School Diploma/GED Difficulty w/ Childcare or Family Care: No Living arrangements: assisted living Additional living arrangements comments: [facility] assisted living. Independent in ADL's, walks with walker. Occupation/Education: retired Spiritual care concerns: No Exam Narrative: GENERAL: Elderly female lying in bed in no acute distress HEAD: Normocephalic, atraumatic. EYES: PERRLA and EOMI. ENT: Nares clear, no rhinorrhea or epistaxis. Mucous membranes moist. NECK: Supple. CHEST: Clear to auscultation. No respiratory distress. HEART: Regular rate and rhythm. No murmur heard. Normal peripheral pulses. ABDOMEN: Soft, nontender, nondistended EXTREMITIES: Normal range of motion. No edema. SKIN: Warm, dry, no rash. NEURO: Alert and oriented x3. Patient reports slightly diminished sensation in the right forearm and hand, 5 out of 5 strength in all extremities, no facial droop or dysarthria noted PSYCH: Normal mood and affect. Course Vital Signs Vital signs: Vital Signs Temperature 98
[2023-02-21] MEDS: SODIUM CHLORIDE 0.9% IV 1,000 ML 999 ML IV CONT (13:52)
[2023-02-21 13:55] LABS: Basophils Absolute Auto 0.1 K/mm3 (0.0-0.1); Basophils Percent Auto 0.7 % (0.2-1.2); Eosinophils Absolute Auto 0.1 K/mm3 (0-0.3); Eosinophils Percent Auto 0.5 % (0-4.4); Hematocrit 34.2 % (37.0-47.0); Hemoglobin 11.3 g/dL (12.0-15.0); Immature Granulocyte Absolute 0.33 K/mm3 (0.00-0.031); Immature Granulocyte Percent A 2.6 % (0-0.5); Lymphocytes Absolute Auto 2.36 K/mm3 (0.9-3.2); Lymphocytes Percent Auto 18.4 % (18.3-44.2); Mean Corpuscular Hemoglobin 27.9 pg (26-34); Mean Corpuscular Volume 84.4 fl (80-100); Mean Platelet Volume 9.6 fl (7.4-10.4); Monocytes Absolute Auto 0.9 K/mm3 (0.1-0.6); Monocytes Percent Auto 7.2 % (2.6-8.5); Neutrophils Absolute Auto 9.1 K/mm3 (1.3-6.7); Neutrophils Percent Auto 70.6 % (45.5-73.1); Platelet Count Result 306 k/mm3 (150-375); Red Blood Count 4.05 M/mm3 (4.2-5.4); Red Cell Distribution Width 15.9 % (11.5-14.5); White Blood Count 12.8 K/mm3 (4.5-10.0)
[2023-02-21 14:07] LABS: Alanine Aminotransferase 50 U/L (6-35); Albumin Level 3.4 g/dL (3.5-5.1); Alkaline Phosphatase 205 U/L (38-126); Anion Gap 5 mmol/L (8-16); Aspartate Amino Transferase 72 U/L (14-36); Bilirubin,Total 0.5 mg/dL (0.2-1.3); Blood Urea Nitrogen 19 mg/dL (7-17); Calcium 8.8 mg/dL (8.4-10.2); Carbon Dioxide 26 mmol/L (22-30); Chloride 104 mmol/L (98-107); Estimated CRCL calculation 45 ml/min; Estimated Glomerular Filt Rate > 60; Glucose 202 mg/dL (65-110); Lipase 13 U/L (23-300); Magnesium 1.3 mg/dL (1.6-2.3); Potassium 4.4 mmol/L (3.4-5.0); Sodium 135 mmol/L (137-145)
[2023-02-21] MEDS: MAGNESIUM OXIDE 400 MG TABLET PO (16:51)
[2023-02-21 17:12] LABS: Appearance Urine Cloudy (Clear); Bacteria Urine None Seen /hpf; Bilirubin Urine Negative (Negative); Blood Urine Negative (Negative); Calcium Oxalate Crystals Urine Present /hpf; Color Urine Yellow (Yellow); Cystine Crystals Urine Present /hpf; Glucose Urine UA Negative (Negative); Ketones Urine Negative (Negative); Leukocyte Esterase Ur Negative LEU/UL (Negative); Nitrate Urine Negative (Negative); Protein Urine Trace mg/dL (Negative); RBC Urine 0-2 /hpf (0-2); Specific Grav Ur 1.015 (1.001-1.035); Squamous Epithelial Cell Urine Few /hpf (Few); Urobilinogen Urine 0.2 mg/dL (<2.0); WBC Urine 0-5 /hpf; pH Urine 5.5 (5.0-9.0)
[2023-02-21 17:14] LABS: Add Urine Microscopic? YES
== END 2023-02-21 18:01 ==
PROVIDERS: Emergency Provider Emergency Medicine; PCP Family Medicine
DX: E11.42 Type 2 diabetes mellitus with diabetic polyneuropathy (principal); E83.42 Hypomagnesemia; E11.22 Type 2 diabetes mellitus with diabetic chronic kidney disease; I12.9 Hypertensive chronic kidney disease with stage 1 through stage 4 chronic kidney disease, or unspecified chronic kidney disease; N18.30 Chronic kidney disease, stage 3 unspecified; H18.519 Endothelial corneal dystrophy, unspecified eye; E78.5 Hyperlipidemia, unspecified; Z96.653 Presence of artificial knee joint, bilateral; Z94.7 Corneal transplant status; Z90.49 Acquired absence of other specified parts of digestive tract; Z90.711 Acquired absence of uterus with remaining cervical stump; R90.82 White matter disease, unspecified; M47.812 Spondylosis without myelopathy or radiculopathy, cervical region; Z79.82 Long term (current) use of aspirin; Z79.4 Long term (current) use of insulin
CPT/HCPCS: 36415; 70450; 72125; 80053; 81001; 83690; 83735; 85025; 96361; 96365; 99284; A9270; J0131; J7030

== ENCOUNTER 2023-03-31 09:24 | Outpatient (CLI) | payer MEDICARE, MEDICAID, SELFPAY ==
--- NOTE | ~2023-03-31 | PE_ITS ---
EXAMINATION: PET skull to mid thigh DATE: 03/31/2023 11:29 INDICATION: Malignant neoplasm of head of pancreas. TECHNIQUE: Blood glucose level was 119 mg/dL. 8.107 mCi of 18-fluorodeoxyglucose (18-FDG) was adminis tered i.v. Low dose computed tomography (CT) images were acquired from the base of the brain to the p roximal thighs for attenuation correction and anatomic localization. Automated exposure control was e mployed. Dose-length product (DLP) was 481 mGy-cm. Positron emission tomography (PET) images were acq uired in the same distribution. COMPARISON: MRCP 02/17/2023, chest CT 09/14/2022 FINDINGS: Head/neck: There are no pathologically enlarged lymph nodes. Chest: A calcified left lung nodule and calcified left hilar and mediastinal lymph nodes are consiste nt with old granulomatous disease. There is a 5 mm nodule in right lower lobe, stable from 09/14/2022 and likely benign. There is chronic septal thickening in the inferior lungs. No pleural effusion. Th e heart size is normal. There are coronary artery calcifications. No pericardial effusion. Abdomen/pelvis/proximal thighs: The liver is normal. There are changes of cholecystectomy. Calcificat ions in the spleen are consistent with old granulomatous disease. There are surgical clips in the abd omen. There is a 4.5 x 1.8 cm mass in the head of the pancreas that encases celiac axis with maximum SUV of 4.7. The adrenal glands and left kidney are normal. There is mild atrophy of right kidney. The re is calcified atherosclerosis of the aorta and many of the other arteries. There are no dilated loo ps of bowel. There is diverticulosis of the colon without evidence of diverticulitis. There are no pa thologically enlarged lymph nodes. There is no free intraperitoneal fluid. There is no osseous malign ned. IMPRESSION: 1. 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 No evidence of metast atic disease. Reviewed, dictated and finalized at location A. IMPRESSION: 1. 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 No evidence of metastatic disease.
[2023-03-31 10:01] LABS: Glucose Point of Care 119 mg/dl (65-105)
[2023-03-31 12:00] LABS: Basophils Absolute Auto 0.1 K/mm3 (0.0-0.1); Basophils Percent Auto 1.1 % (0.2-1.2); Eosinophils Absolute Auto 0.3 K/mm3 (0-0.3); Eosinophils Percent Auto 3.1 % (0-4.4); Hematocrit 37.7 % (37.0-47.0); Hemoglobin 12.2 g/dL (12.0-15.0); Immature Granulocyte Absolute 0.05 K/mm3 (0.00-0.031); Immature Granulocyte Percent A 0.5 % (0-0.5); Lymphocytes Absolute Auto 2.68 K/mm3 (0.9-3.2); Mean Corpuscular HGB Conc 32.4 g/dl (32-36); Mean Corpuscular Hemoglobin 28.8 pg (26-34); Mean Corpuscular Volume 89.1 fl (80-100); Mean Platelet Volume 9.8 fl (7.4-10.4); Monocytes Absolute Auto 0.9 K/mm3 (0.1-0.6); Neutrophils Absolute Auto 5.9 K/mm3 (1.3-6.7); Neutrophils Percent Auto 59.3 % (45.5-73.1); Platelet Count Result 322 k/mm3 (150-375); Red Blood Count 4.23 M/mm3 (4.2-5.4); Red Cell Distribution Width 14.9 % (11.5-14.5); White Blood Count 9.9 K/mm3 (4.5-10.0)
[2023-03-31 12:14] LABS: Alanine Aminotransferase 28 U/L (6-35); Albumin Level 3.7 g/dL (3.5-5.1); Alkaline Phosphatase 209 U/L (38-126); Anion Gap 7 mmol/L (8-16); Aspartate Amino Transferase 32 U/L (14-36); Bilirubin,Total 0.8 mg/dL (0.2-1.3); Blood Urea Nitrogen 14 mg/dL (7-17); Calcium 8.7 mg/dL (8.4-10.2); Carbon Dioxide 29 mmol/L (22-30); Chloride 100 mmol/L (98-107); Estimated Glomerular Filt Rate > 60; Glucose 118 mg/dL (65-110); Potassium 3.5 mmol/L (3.4-5.0); Sodium 136 mmol/L (137-145)
[2023-04-06 04:14] LABS: CA 19-9 556 U/mL (<34)
== END 2023-03-31 09:25 | disposition home or self-care (01) ==
PROVIDERS: PCP Family Medicine; Visit Provider Internal Medicine Hematology & Oncology
DX: C25.0 Malignant neoplasm of head of pancreas (principal)
CPT/HCPCS: 36415; 78815; 80053; 85025; 86301; A9552

== ENCOUNTER 2023-04-30 09:01 | Observation (INO) | payer MEDICARE, MEDICAID, SELFPAY ==
[2023-04-30] VITALS (29 sets, daily range): BP systolic 112–179; BP diastolic 46–168; PULSE 80–140; RESP 12–34; TEMP 36.3–36.8; O2SAT 91–100
--- NOTE | ~2023-04-30 | XR_ITS ---
EXAMINATION: XR chest 1V portable DATE: 04/30/2023 09:23 INDICATION: Cough. Sepsis. Jaw pain and swelling. TECHNIQUE: A single frontal view of the chest was obtained. COMPARISON: Chest single view 07/29/2022 FINDINGS: There are reticular opacities in the lower lung zones. No pleural effusion or pneumothorax. The heart size is normal. There are surgical clips in the abdomen. Calcified mediastinal lymph nodes are consistent with old granulomatous disease. IMPRESSION: 1. Reticular opacities in the lower lung zones, consistent with mild pulmonary edema versus mild atel ectasis/scarring. Reviewed, dictated and finalized at location A. IMPRESSION: 1. Reticular opacities in the lower lung zones, consistent with mild pulmonary edema versus mild atelectasis/scarring.
--- NOTE | ~2023-04-30 | CT_ITS ---
EXAMINATION: CT soft tissue neck w con DATE: 04/30/2023 10:25 INDICATION: Dental pain. Submandibular swelling. TECHNIQUE: Computed tomography (CT) of the neck was performed with 75 mL Omnipaque-350 intravenous co ntrast. Automated exposure control and iterative reconstruction technique were employed. The dose-jack gth product was 818.45 mGy-cm. COMPARISON: CTA neck 02/29/2008 FINDINGS: There are likely changes of ocular lens replacement surgeries. There is moderate osteoarthr itis of the temporomandibular joints. There is an effusion of right temporomandibular joint with enha ncing synovitis. There are no pathologically enlarged lymph nodes. There is plaque in the proximal in ternal carotid arteries. Distal right internal carotid artery is smaller than the left, consistent wi th near occlusion stenosis of the proximal internal carotid artery. There is less than 50% stenosis o f proximal left internal carotid artery. There is a small right mastoid effusion. The remaining teeth are unremarkable. There is severe cervical spondylosis. IMPRESSION: 1. Effusion of right temporomandibular joint with enhancing synovitis. 2. 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 Reviewed, dictated and finalized at location A.
--- NOTE | ~2023-04-30 | CT_ITS ---
EXAMINATION: CTA chest PE abdomen pel DATE: 04/30/2023 10:26 INDICATION: Right abdominal pain. Tachycardia. TECHNIQUE: Computed tomography angiography (CTA) of the chest was performed with 75 mL Omnipaque-350 intravenous contrast timed to evaluate the pulmonary arteries. Coronal maximum intensity projection 3 D-reconstructions were created by the technologist. Computed tomography (CT) of the abdomen and pelvi s was performed with intravenous contrast. Automated exposure control and iterative reconstruction te chnique were employed. The dose-length product was 965.40 mGy-cm. COMPARISON: Chest CT 09/14/2022 FINDINGS: CTA chest: There is diffuse septal thickening in the lungs with a peripheral predominance. There is a stable 7 mm nodule in right lower lobe, likely benign. Calcified left lung nodules and calcified lef t hilar and mediastinal lymph nodes are consistent with old granulomatous disease. No pleural effusio n. The heart size is normal. There are coronary artery calcifications. No pericardial effusion. There is no pulmonary embolus. There is mild thoracic spondylosis. There is a benign bone island in T11 ve rtebral body. CT abdomen and pelvis: There is mild intrahepatic biliary duct dilatation. There is thrombosis of lef t portal vein. Periportal edema is noted. There are changes of cholecystectomy. Calcifications in the spleen are consistent with old granulomatous disease. There is an ill-defined mass in the head of th e pancreas measuring 4.6 x 2.4 cm. There is dilatation of the pancreatic duct in the body and tail of the pancreas. There is severe stenosis versus total occlusion of celiac axis and proximal superior m esenteric artery, which are encased by the mass. The adrenal glands are normal. There is mild atrophy of right kidney. There is cortical thinning of left kidney. There is calcified atherosclerosis of th e aorta and many of the other arteries. There is diverticulosis of the colon without evidence of dive rticulitis. There are no dilated loops of bowel. The appendix is not visualized. There are no patholo gically enlarged lymph nodes. There is no free intraperitoneal fluid. There is a left periumbilical h ernia containing fat. There is severe osteoarthritis of the hips. There is severe lumbar spondylosis. IMPRESSION: 1. No pulmonary embolus. 2. Chronic interstitial lung disease. Superimposed mild pulmonary edema cannot be excluded. 3. 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 4. 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 5. Thrombosis of left portal vein. Reviewed, dictated and finalized at location A. IMPRESSION: 1. No pulmonary embolus. 2. Chronic interstitial lung disease. Superimposed mild pulmonary edema cannot be excluded. 3. 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 4. 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 5. Thrombosis of left portal vein.
--- NOTE | 2023-04-30 09:07 | ECG_ITS ---
Measurements Intervals [place] Rate: 128 P: [place]: 0 QRS: -2 QRSD: 79 T: 76 QT: 192 QTc: 281 Interpretive Statements ATRIAL FIBRILLATION WITH RAPID VENTRICULAR RESPONSE VENTRICULAR PREMATURE COMPLEX NONSPECIFIC ST & T-WAVE ABNORMALITY- DIFFUSE LEADS BASELINE ARTIFACT- I, II, III, AVR, AVL, AVF, V1-V6 ABNORMAL ECG COMPARED TO ECG 12/22/2022 10:42:05 ATRIAL FIBRILLATION NOW PRESENT ST-T WAVE ABNORMALITY NOW PRESENT Electronically Signed On 04-30-2023 18:30:14 CDT by Sanjay Ha D.O.
--- NOTE | 2023-04-30 09:30 | ED.DENTAL ---
HPI - Dental/Oral General Chief complaint: Dental/Oral <Kassandra Canas PA-C - Last Filed: 04/30/23 19:37> Stated complaint: jaw pain <Kassandra Canas PA-C - Last Filed: 04/30/23 19:37> Time Seen by Provider: 04/30/23 09:05 <Kassandra Canas PA-C - Last Filed: 04/30/23 19:37> History of Present Illness HPI Narrative: 88-year-old female with a history of chronic pain, atrial fibrillation, pancreatic mass, A-fib, CKD 3, insulin-dependent diabetes, hypertension reports via EMS for right jaw pain and neck pain and swelling that started today with associated difficulty swallowing secondary to pain. She is also complaining of dyspnea x3 days, RLQ abdominal pain, and pain all over . She reports numbness in her L arm that may be chronic. She has taken oxycodone for her pain this morning with some relief. Reports nausea, no emesis. Denies fever, headache, vision changes, pain with light touch to her face, chest pain, cough, congestion. <Kassandra Canas PA-C - Last Filed: 04/30/23 19:37> Related Data Home medications: Home Medications Medication Instructions Recorded Confirmed dicyclomine 10 mg capsule 10 mg PO BID 04/13/23 05/03/23 docusate sodium 100 mg tablet 100 mg PO BID 04/13/23 05/03/23 ferrous sulfate 325 mg (65 mg 325 mg PO BID 04/13/23 05/03/23 iron) tablet loratadine 10 mg tablet 10 mg PO DAILY PRN Allergy Symptoms 04/13/23 05/03/23 oxycodone 5 mg tablet,oral ONLY 5 mg PO TID PRN Pain (Scale Score 04/13/23 05/03/23 (not feeding tubes) 4-6) polyethylene glycol 3350 17 17 g PO DAILY 04/13/23 05/03/23 gram/dose oral powder (Miralax) potassium chloride 20 mEq 20 meq PO DAILY 04/13/23 05/03/23 tablet,extended release sertraline 100 mg tablet 50 mg PO DAILY 04/13/23 05/03/23 apixaban 5 mg tablet (Eliquis) 5 mg PO BID 04/30/23 05/03/23 fluticasone propionate 50 2 spray intranasal DAILY 04/30/23 05/03/23 mcg/actuation nasal spray,suspension hydroxyzine HCl 25 mg tablet 12.5 mg PO QID PRN Anxiety 04/30/23 05/03/23 insulin NPH-regular 70-30 U-100 18 unit subcut BID 04/30/23 05/03/23 insulin 100 unit/mL subcutaneous pen (Humulin 70/30 U-100 KwikPen) ipratropium bromide 0.02 % 0.5 ml inhalation Q6H PRN 04/30/23 05/03/23 solution for inhalation Shortness Of Breath Or Wheezing lactulose 10 gram/15 mL oral 15 ml PO BID PRN Constipation 04/30/23 05/03/23 solution lisinopril 5 mg tablet 5 mg PO DAILY 04/30/23 05/03/23 magnesium oxide 400 mg (241.3 mg 400 mg PO DAILY 04/30/23 05/03/23 magnesium) tablet megestrol 625 mg/5 mL (125 mg/mL) 5 ml PO DAILY 04/30/23 05/03/23 oral suspension metoprolol succinate 50 mg 50 mg PO DAILY 04/30/23 05/03/23 tablet,extended release 24 hr ondansetron HCl 4 mg tablet 4 mg PO BID PRN Nausea And Vomiting 04/30/23 05/03/23 vit A 300 mcg-C 200 mg-E 27 1 tablet PO BID 04/30/23 05/03/23 mg-lutein 2 mg and minerals tablet (Healthy Eyes) <Kassandra Canas PA-C - Last Filed: 04/30/23 19:37> Allergies/adverse reactions: Allergies Allergy/AdvReac Type Severity Reaction Status Date / Time No Known Allergies Allergy Verified 01/03/23 07:23 <Kassandra Canas PA-C - Last Filed: 04/30/23 19:37> Review of Systems Review of Systems: CONSTITUTIONAL: Denies fever, chills EYES: Denies visual changes, redness, or discharge. ENT: See HPI CARDIOVASCULAR: Denies chest pain, palpitations, or edema. RESPIRATORY: See HPI. GASTROINTESTINAL: See HPI GENITOURINARY: Denies dysuria or hematuria. SKIN: Denies rash or itching. MUSCULOSKELETAL: Denies back pain, joint pain, or myalgia. NEUROLOGIC: See HPI PSYCHIATRIC: Denies anxiety or depression. <Kassandra Canas PA-C - Last Filed: 04/30/23 19:37> [facility] Past Medical History Medical History: Medical History Chronic kidney disease, stage 3 Diabetic peripheral neuropathy Diverticulitis of colon with perforation Fuchs' corne
[2023-04-30] MEDS: dilTIAZem HCl INJ 25 MG/5 ML VIAL 10 MG IV PUSH (09:41)
[2023-04-30] MEDS: SODIUM CHLORIDE 0.9% IV 1,000 ML 999 ML IV CONT (09:41)
[2023-04-30] MEDS: ONDANSETRON INJ 4 MG/2 ML VIAL IV PUSH (09:41)
[2023-04-30 09:42] LABS: Basophils Absolute Auto 0.1 K/mm3 (0.0-0.1); Basophils Percent Auto 0.8 % (0.2-1.2); Eosinophils Absolute Auto 0.3 K/mm3 (0-0.3); Eosinophils Percent Auto 1.8 % (0-4.4); Hematocrit 39.2 % (37.0-47.0); Hemoglobin 12.8 g/dL (12.0-15.0); Immature Granulocyte Absolute 0.13 K/mm3 (0.00-0.031); Immature Granulocyte Percent A 0.9 % (0-0.5); Lymphocytes Absolute Auto 3.41 K/mm3 (0.9-3.2); Lymphocytes Percent Auto 22.4 % (18.3-44.2); Mean Corpuscular HGB Conc 32.7 g/dl (32-36); Mean Corpuscular Hemoglobin 29.2 pg (26-34); Mean Corpuscular Volume 89.3 fl (80-100); Monocytes Absolute Auto 0.7 K/mm3 (0.1-0.6); Monocytes Percent Auto 4.9 % (2.6-8.5); Neutrophils Absolute Auto 10.5 K/mm3 (1.3-6.7); Neutrophils Percent Auto 69.2 % (45.5-73.1); Platelet Count Result 284 k/mm3 (150-375); Red Blood Count 4.39 M/mm3 (4.2-5.4); Red Cell Distribution Width 14.8 % (11.5-14.5); White Blood Count 15.2 K/mm3 (4.5-10.0)
[2023-04-30 09:54] LABS: Estimated CRCL calculation 46 ml/min; Estimated Glomerular Filt Rate > 60
[2023-04-30 09:57] LABS: INR 1.1; Prothrombin Time 14.8 Seconds (11.1-14.7)
[2023-04-30 09:58] LABS: Partial Thromboplastin Time 28.4 SECONDS (22.3-36.8)
[2023-04-30 09:59] LABS: Lactic Acid Reflex 3.7 mmol/L (0.7-2.0)
[2023-04-30 10:02] LABS: Alanine Aminotransferase 50 U/L (6-35); Albumin Level 3.7 g/dL (3.5-5.1); Alkaline Phosphatase 399 U/L (38-126); Anion Gap 6 mmol/L (8-16); Aspartate Amino Transferase 52 U/L (14-36); Bilirubin,Total 1.3 mg/dL (0.2-1.3); Blood Urea Nitrogen 14 mg/dL (7-17); CRP 4.6 mg/dL (<1.0); Calcium 9.2 mg/dL (8.4-10.2); Carbon Dioxide 24 mmol/L (22-30); Chloride 104 mmol/L (98-107); Estimated CRCL calculation 40 ml/min; Estimated Glomerular Filt Rate > 60; Glucose 113 mg/dL (65-110); Potassium 3.5 mmol/L (3.4-5.0); Sodium 134 mmol/L (137-145)
[2023-04-30 10:15] LABS: Lipase 14 U/L (23-300)
[2023-04-30 10:23] LABS: Appearance Urine Cloudy (Clear); Bacteria Urine None Seen /hpf; Bilirubin Urine Negative (Negative); Blood Urine Negative (Negative); Calcium Oxalate Crystals Urine Present /hpf; Color Urine Yellow (Yellow); Glucose Urine UA 2+ mg/dL (Negative); Ketones Urine Negative (Negative); Leukocyte Esterase Ur Negative LEU/UL (Negative); Nitrate Urine Negative (Negative); Non Pathogenic Casts 0-2; Protein Urine 1+ mg/dL (Negative); RBC Urine 0-2 /hpf (0-2); Squamous Epithelial Cell Urine None seen /hpf (Few); Urobilinogen Urine 0.2 mg/dL (<2.0); WBC Urine 0-5 /hpf; pH Urine 5.5 (5.0-9.0)
[2023-04-30 10:26] LABS: Add Urine Microscopic? YES
[2023-04-30 10:27] LABS: NT Pro B Type Natriuretic Pept 1370 pg/mL (19.9-100); Troponin I < 0.012 ng/mL (0.000-0.034)
[2023-04-30] MEDS: MAGNESIUM SULF 1 GM/D5W 100 ML 1 GM/100 ML BAG IVPB (10:41)
[2023-04-30] MEDS: KETOROLAC 15 MG/ML VIAL (*BKC) IV PUSH (11:23)
[2023-04-30] MEDS: dilTIAZem 100 MG/100 ML 100 MG/100 ML BAG IV CONT (11:23)
[2023-04-30 12:40] LABS: Reflex Lactic Acid Yes or No Add Lactic
[2023-04-30 12:42] LABS: Troponin I < 0.012 ng/mL (0.000-0.034)
[2023-04-30 13:24] LABS: Lactic Acid 2.6 mmol/L (0.7-2.0)
--- NOTE | 2023-04-30 13:56 | ADMGEN ---
This patient, Juana Adams, was admitted to IMU Room 204-01 at 1356. Patient/family oriented to hospital policies and general routines including ID bracelet, bed and alarms, visiting hours, pain management, procedures, bathroom and other care routines, personal items, smoking policy, room service/diet, and visiting hours. Information on how to activate the Rapid Response Team has been discussed. Patient/Family are encouraged to report perceived risks to care and to ask questions if they do not understand what they are told or what they should do.
--- NOTE | 2023-04-30 14:34 | PM.IMHP ---
H&P: HPI History of Present Illness Date/Time: 04/30/23 14:34 Chief Complaint: Atrial fibrillation with rapid ventricular response Narrative: This is an 88-year-old female with a past medical history of pancreatic mass, CKD stage 3, diabetes, hypertension, AFib the present to the ED on 04/30/2023 with chief complaint of right-sided jaw pain. Patient was recently treated with antibiotics for this jaw pain in the ED but once she was seen by her dentist they described that she had TMJ. Due to the drop pain she has been having difficulty swallowing although she says that chewing is not an issue for her. She does have chronic pain and takes oxycodone for this at home. In the ED it was stated that she had complaints of dyspnea for 3 days although when I asked her about her breathing she stated that she was not short of breath and denied any chest pain. While in the ED she was found to be in AFib RVR and she was started on IV fluids and 10 mg of diltiazem. During evaluation she was back into sinus rhythm and rate controlled. Patient previously on palliative care due to pancreatic mass. Per patient's family they would like to have hospice discussion tomorrow after patient receives treatment for her cardiac arrhythmia. Chest x-ray revealed reticular opacities in the left lower lung zones consistent with pulmonary edema versus atelectasis/scarring. Patient admitted into observation status for possible admission into hospice. She was started on a Cardizem drip. CT of soft tissue head and neck revealed effusion of right TMJ with enhancing synovitis. White blood cell count elevated at 15.2. Patient with elevated lactic acid, elevated LFTs, elevated CRP of 4.6. IV fluids initiated. Vancomycin initiated. After long conversation with the patient's power of mergers and acquisitions attorney has decided to go comfort care. Care coordination consult to hospice has been made. Review of Systems Review of Systems: All systems reviewed & are unremarkable except as noted in HPI and below PMFSH Past Medical History Medical History Chronic kidney disease, stage 3 Diabetic peripheral neuropathy Diverticulitis of colon with perforation Fuchs' corneal dystrophy Gastroenteritis Insulin dependent diabetes mellitus Surgical History Surgical History History of abdominal surgery Panniculectomy History of appendectomy History of bilateral knee replacement History of colon resection had a colon resection with colostomy and subsequent reversal due to perforated diverticulitis. History of colostomy reversal Colostomy reversal about 4 months after her colon resection History of corneal transplant History of gastric stapling History of partial hysterectomy Family History Family History Mother Family history of arthritis Family history of malignant neoplasm of breast in first degree relative Social History Social History Social History: Healthcare power of mergers and acquisitions attorney: Shey Kirk, daughter. Code status: Do not resuscitate. Smoking status: Never smoker Alcohol intake: never Substance use: never Substance use type: does not use Lack of Transportation: No Lack of Food: Never True Current Housing: I Have Housing Concerned About Future Housing: No Difficulty Paying Gas/Electric Bills: No Difficulty Paying for Meds: No Currently Unemployed: No Education: Decline to Answer Difficulty w/ Childcare or Family Care: No Living arrangements: assisted living Additional living arrangements comments: [facility]. Independent in ADL's, walks with walker. Occupation/Education: retired Spiritual care concerns: No Meds Home Medications and Allergies Home Medications Medication Instructions Recorded
[2023-04-30] MEDS: MORPHINE SULFATE (*CRX) 15 MG TABCR PO (21:54)
[2023-05-01 08:00] VITALS: PULSE 85; RESP 20; O2SAT 100
--- NOTE | 2023-05-01 09:09 | PC.NURSE ---
This patient, Juana Adams, was received from [[facility] ] on 04/30/23 at 1700. Patient/family oriented to unit policies and routines. VSS. On room Air. No complaints of pain
[2023-05-01 09:30] VITALS: BP 137/55; PULSE 99; RESP 14; TEMP 36.8; O2SAT 100
[2023-05-01] MEDS: MORPHINE SULFATE (*CRX) 15 MG TABCR PO ×3 (09:34→20:30)
[2023-05-01 14:00] VITALS: BP 127/38; PULSE 64; RESP 16; TEMP 36.3; O2SAT 99
[2023-05-01] MEDS: MORPHINE SULFATE (*CRX) 2 MG/ML INJ IV PUSH (14:23)
--- NOTE | 2023-05-01 15:22 | PM.IMPN ---
Progress Note: A&P Assessment and Plan (1) Atrial fibrillation with RVR: Code(s): I48.91 - Unspecified atrial fibrillation Status: Inactive Assessment and Plan: Patient presents to the ED with AFib RVR. Initially put on Cardizem drip. All medications discontinued at this time due family opting for comfort measures. (2) Chronic kidney disease, stage 3: Code(s): N18.30 - Chronic kidney disease, stage 3 unspecified Status: Acute Assessment and Plan: Avoid nephrotoxic medications (3) Mass of pancreas: Code(s): K86.89 - Other specified diseases of pancreas Status: Acute Assessment and Plan: Patient on palliative care for this. CTA of chest abdomen pelvis revealed pancreatic mass likely per day adenocarcinoma. Severe stenosis versus total occlusion of the celiac axis and proximal superior mesenteric artery which during case by pancreatic mass. This discussed with the family members and this has been a known problem and the patient has been on palliative care for this. Had long discussion with family member and due to complex case they have decided to transition patient to comfort care at [facility]. (4) Insulin dependent diabetes mellitus: Status: Chronic Assessment and Plan: Comfort measures (5) TMJ inflammation: Code(s): M26.69 - Other specified disorders of temporomandibular joint Status: Acute Assessment and Plan: Pain medication as needed. Subjective Date/time seen: 05/01/23 15:22 Interval history: Patient states that she is feeling much better today. Her pain is well controlled. She does have some intermittent breakthrough is a 90 swelling to her that she needs to tell the nurse and she can receive more pain medication for this. I believe she does have some dementia and forgets to ask for pain medication when needed. Talked to the daughter for approximately 15 minutes regarding patient's care. The plan is to sign with hospice tomorrow. Review of Systems Review of Systems: All systems reviewed & are unremarkable except as noted in HPI and below Exam Narrative: GENERAL: Comfortable, no acute distress HENMT: moist mucous membranes EYES: EOM intact b/l RESPIRATORY: clear to auscultation CARDIO: RRR GI: soft, mild tenderness, bowel sounds present SKIN: no rashes Objective Data Vital Signs Vital Signs: Vital Signs - 24 hr 04/30/23 16:00 04/30/23 21:56 04/30/23 20:00 Temperature 97.5 F L 98.3 F Pulse Rate 80 85 85 Respiratory Rate 20 20 20 Blood Pressure 112/51 L 123/58 L Pulse Oximetry 100 100 100 Oxygen Delivery Room Air 05/01/23 08:00 05/01/23 09:30 05/01/23 14:00 Temperature 98.3 F 97.4 F L Pulse Rate 85 99 64 Respiratory Rate 20 14 16 Blood Pressure 137/55 L 127/38 L Pulse Oximetry 100 100 99 Oxygen Delivery Room Air Intake/Output Intake/Output: Intake & Output 04/28/23 04/29/23 04/30/23 05/01/23 23:59 23:59 23:59 23:59 Intake Total 1150 730 Output Total 175 Balance 975 730 Meds/Results Medications: Active Medications Generic Name Dose Route Start Last Admin Trade Name Freq PRN Reason Stop Dose Admin Acetaminophen 650 mg 04/30/23 15:46 Acetaminophen 325 Mg Tablet PO Q4H PRN Mild Pain (1-3) or Fever Lactulose 10 gm 04/30/23 14:45 Lactulose 20 Gm/30 Ml Udc PO BID PRN Constipation Lorazepam 1 mg 04/30/23 15:46 Lorazepam Inj (*Crx) 2 Mg/Ml Vial IV PUSH Q2H PRN Anxiety or air hunger Morphine Sulfate 2 mg 04/30/23 15:46 05/01/23 14:23 Morphine Sulfate (*Crx) 2 Mg/Ml Inj IV PUSH 2 mg Q2H PRN Administration Pain Rated 7-10 Morphine Sulfate 15 mg 05/01/23 15:00 Morphine Sulfate (*Crx) 15 Mg Tabcr PO Q6H [facility] Radiology Results: ITS Impressions Chest X-Ray 04/30/23 09:24 IMPRESSION: 1. Reticular opacities in the lower lung zones
--- NOTE | 2023-05-01 19:13 | PDONCCN ---
HPI - Date of Consult Date/Time: 05/01/23 19:13 Requesting Physician: Saurabh Holguin MD Primary Care Provider: Daina Arnold MD - Consult Narrative Reason for consult: Pancreatic cancer Narrative: Juana Adams is a 88 year old female with history of localized pancreatic cancer, chronic kidney stage 3 disease, diabetes, hypertension and atrial fibrillation came into the hospital with right-sided jaw pain. She was treated with antibiotics. She was seen in the office on April 07 and treatment options were discussed. She was supposed to see radiation oncologist for pancreatic mass radiation therapy for localized pancreatic cancer. CT scan soft tissue head and neck revealed effusion of the right TMJ with synovitis. She was started on antibiotic treatment. Review of Systems - Review of Systems All systems reviewed & are unremarkable except as noted in [facility] and [facility] Medical History: Medical History (Last Reviewed 04/30/23 @ 14:43 by Yasmin Salinas PA-C) Chronic kidney disease, stage 3 Diabetic peripheral neuropathy Diverticulitis of colon with perforation Fuchs' corneal dystrophy Gastroenteritis Insulin dependent diabetes mellitus Surgical History: Surgical History (Last Reviewed 04/30/23 @ 14:43 by Yasmin Salinas PA-C) History of abdominal surgery Panniculectomy History of appendectomy History of bilateral knee replacement History of colon resection had a colon resection with colostomy and subsequent reversal due to perforated diverticulitis. History of colostomy reversal Colostomy reversal about 4 months after her colon resection History of corneal transplant History of gastric stapling History of partial hysterectomy Family History: Family History (Last Reviewed 04/30/23 @ 14:43 by Yasmin Salinas PA-C) Mother Family history of arthritis Family history of malignant neoplasm of breast in first degree relative - Social History Social History: Social History (Last Reviewed 04/30/23 @ 14:43 by Yasmin Salinas PA-C) Alcohol Use: Alcohol intake: never Substance Use: Substance use: never Substance use type: does not use Others: Spiritual care concerns: No Living Arrangements: Living arrangements: assisted living Oppucation/Education: Occupation/Education: retired Smoking Status: Smoking status: Never smoker Social Determinants of Health: Has the Lack of Transportation Kept You From Medical Appointments or From Getting Medications?: No Within the Past 12 Months, Were You Worried Whether Your Food Would Run Out Before You Got Money to Buy More?: Never True What is Your Housing Situation Today?: I Have Housing Are You Worried That in the Next 2 Months, You May Not Have Your Own Housing to Live In?: No Do You Have Trouble Paying Your Heating Or Electricity Bill?: No Do You Have Trouble Paying For Medicines?: No Are You Currently Unemployed and Looking for Work?: No Highest Level of Education Completed: Decline to Answer Do You Have Trouble With Childcare or the Care of a Family Member?: No Exam - Vital Signs Vital Signs - 24 hr 04/30/23 21:56 04/30/23 20:00 05/01/23 08:00 Temperature 36.8 C Pulse Rate 85 85 85 Respiratory Rate 20 20 20 Blood Pressure 123/58 L Pulse Oximetry 100 100 100 Oxygen Delivery Room Air Room Air 05/01/23 09:30 05/01/23 14:00 Temperature 36.8 C 36.3 C L Pulse Rate 99 64 Respiratory Rate 14 16 Blood Pressure 137/55 L 127/38 L Pulse Oximetry 100 99 Oxygen Delivery - Lab Results Laboratory Last Values WBC 15.2 K/mm3 (4.5-10.0) H 04/30/23 09:31 RBC 4.39 M/mm3 (4.2-5.4) 04/30/23 09:31 Hgb 12.8 g/dL (12.0-15.0) 04/30/23 09:31 Hct 39.2 % (37.0-47.0) 04/30/23 09:31 MCV 89.3 fl (80-100) 04/30/23 09:31 MCH 29.2 pg (26-34) 04/30/23 09:31 MCHC 32.7 g/dl (32-36) 04/30/23 09:31 RDW
[2023-05-01 21:10] VITALS: BP 107/46; PULSE 94; RESP 16; TEMP 36.8; O2SAT 97
[2023-05-02] MEDS: MORPHINE SULFATE (*CRX) 15 MG TABCR PO ×3 (02:33→14:32)
[2023-05-02 08:00] VITALS: BP 110/93; PULSE 72; RESP 18; TEMP 36.4; O2SAT 99
--- NOTE | 2023-05-02 11:53 | PM.DS ---
DS: Admitting Diagnosis Discharge Date 05/02/23 Admitting Diagnosis Jaw pain, shortness a breath DS: Discharge Diagnosis Discharge Diagnosis (1) Atrial fibrillation with RVR: Code(s): I48.91 - Unspecified atrial fibrillation Status: Inactive (2) Chronic kidney disease, stage 3: Code(s): N18.30 - Chronic kidney disease, stage 3 unspecified Status: Acute (3) Mass of pancreas: Code(s): K86.89 - Other specified diseases of pancreas Status: Acute (4) Insulin dependent diabetes mellitus: Status: Chronic (5) TMJ inflammation: Code(s): M26.69 - Other specified disorders of temporomandibular joint Status: Acute DS: Summary Hospital Course Hospital Course: This is an 88-year-old female with a past medical history of pancreatic mass, CKD stage 3, diabetes, hypertension, AFib the present to the ED on 04/30/2023 with chief complaint of right-sided jaw pain.? Patient was recently treated with antibiotics for this jaw pain in the ED but once she was seen by her dentist they described that she had TMJ.? Due to the drop pain she has been having difficulty swallowing although she says that chewing is not an issue for her. She does have chronic pain and takes oxycodone for this at home.? While in the ED she was found to be in AFib RVR and she was started on IV fluids and 10 mg of diltiazem. Patient previously on palliative care due to pancreatic mass.? Chest x-ray revealed reticular opacities in the left lower lung zones consistent with pulmonary edema versus atelectasis/scarring.? Patient admitted into observation status for possible admission into hospice. She was started on a Cardizem drip.? CT of soft tissue head and neck revealed effusion of right TMJ with enhancing synovitis.? White blood cell count elevated at 15.2.? Patient with elevated lactic acid, elevated LFTs, elevated CRP of 4.6.? IV fluids initiated.? Vancomycin initiated. After long conversation with the patient's power of patent prosecution attorney has decided to go comfort care. All the patient's medications other than pain anxiety were discontinued. Care coordination was consulted and inpatient hospice evaluation was performed. Patient did not qualify for inpatient hospice. The plan is for patient to be discharged back to [facility] for hospice care. Time Spent with Patient Time attestation: Total time spent providing and/or coordinating discharge services: Exam Narrative: GENERAL: Comfortable, no acute distress HENMT: moist mucous membranes NECK: no lymphadenopathy RESPIRATORY: clear to auscultation CARDIO: RRR GI: soft, nontender, bowel sounds present SKIN: no rashes EXTREMITIES: no edema, redness or tenderness DS: Data Data Completed and Pending Labs on day of discharge: Preliminary micro results at discharge 04/30/23 09:31 Blood Culture - Preliminary Blood 04/30/23 09:32 Blood Culture - Preliminary Blood Discharge Plan Discharge Attending physician on discharge: Saurabh Holguin Consulting providers: Coy Navarro Discharging Clinician: Yasmin Salinas Patient Disposition: Hospice - Medical Facility Activity: no preference Diet: no preference Discharge Instructions: Patient discharged into hospice care. Home medications per Hospice preference. Patient Instructions: Antibiotic Form, Apixaban (By mouth) Stand Alone Forms: General Discharge Information Discharge Medications: Continued ferrous sulfate 325 mg (65 mg iron) Tablet 325 mg PO BID polyethylene glycol 3350 [Miralax] 17 gram/dose Powder 17 g PO DAILY dicyclomine 10 mg Capsule 10 mg PO BID docusate sodium 100 mg Tablet 100 mg PO BID loratadine 10 mg Tablet 10 mg PO DAILY PRN (Reason: Allergy Symptoms) oxycodone 5 mg Tablet, Oral Only 5 mg PO TID PRN (Reason: Pain (Scale Score 4-6)) potassium chloride 20 mEq Tablet Extended Release 20 meq PO DAILY sertraline 100 mg
[2023-05-02] MEDS: diphenhydrAMINE HCl CAP 25 MG CAPSULE PO (12:19)
[2023-05-02] MEDS: LACTULOSE 20 GM/30 ML UDC 10 GM PO (14:34)
[2023-05-02 16:16] LABS: SARS-CoV-2 RNA PCR Negative (Negative)
== END 2023-05-02 18:00 | disposition hospice, inpatient (51) ==
LOC: ANHED 09:12 → ANHIMU 14:17 → ANH3MEDSUR 19:35 → ANHIMU 05-03 09:49
PROVIDERS: Admitting Provider Family Medicine; Emergency Provider Physician Assistant; PCP Family Medicine; Visit Provider Internal Medicine Critical Care Medicine
DX: R68.84 Jaw pain (principal); M54.2 Cervicalgia; M26.89 Other dentofacial anomalies; Z20.822 Contact with and (suspected) exposure to COVID-19; G89.29 Other chronic pain; R13.10 Dysphagia, unspecified; I13.0 Hypertensive heart and chronic kidney disease with heart failure and stage 1 through stage 4 chronic kidney disease, or unspecified chronic kidney disease; E11.22 Type 2 diabetes mellitus with diabetic chronic kidney disease; I50.9 Heart failure, unspecified; N18.30 Chronic kidney disease, stage 3 unspecified; I81 Portal vein thrombosis; H18.519 Endothelial corneal dystrophy, unspecified eye; I48.91 Unspecified atrial fibrillation; K86.89 Other specified diseases of pancreas; J84.9 Interstitial pulmonary disease, unspecified; R06.00 Dyspnea, unspecified; R94.31 Abnormal electrocardiogram [ECG] [EKG]; Z79.4 Long term (current) use of insulin; Z79.891 Long term (current) use of opiate analgesic; Z79.01 Long term (current) use of anticoagulants; Z79.51 Long term (current) use of inhaled steroids; Z79.899 Other long term (current) drug therapy
CPT/HCPCS: 36415; 70491; 71045; 71275; 74177; 80053; 81001; 83605; 83690; 83735; 83880; 84484; 85025; 85610; 85730; 86140; 87040; 87081; 87635; 93005; 96361; 96365; 96375; 96376; 99285; A9270; G0378; J0696; J1885; J2270; J2405; J3370; J3475; J7030; Q9967